=== PATIENT | male | born 1960 | race Caucasian/White ===

== ENCOUNTER 2017-11-25 18:41 | Emergency (ER) | payer BC ==
--- OUTSIDE RECORDS SUMMARY | 2017-11-25 18:44 | XMS REPORT | Continuity of Care Document ---
:1960 Author Organization Interface Problems Problem Status Onset Classification Date Comments Source Date Reported Dyspnea, 07/06/19 10/03/2017 [facility] unspecified 18 DYSPNEA Active 06/28/19 [facility] 18 UNK Active 01/28/20 [facility] 17 CHEST PAIN, NEW Active 11[facility]09[facility]19 [facility] 16 [facility] Arthritis Resolved Problem 10/03/2017 [facility] pain, Resolved Problem 10/03/2017 lumbosacral [facility] Hypertension Resolved Problem 10/03/2017 [facility] Kidney stones Resolved Problem 10/03/2017 [facility] Skin cancer Resolved Problem 10/03/2017 [facility] Peptic ulcer Resolved Problem 10/03/2017 disease with [facility], hemorrhage [place] Sleep apnea Resolved Problem 10/03/2017 [facility] Presence of 10/03/2017 [facility] cardiac pacemaker Final: Chest [facility], unspecified CHEST PAIN, Active [facility] UNSPECIFIED [facility] Medications Medication Details Route Status Patient Ordering Order Source Instructions Provider Date influenza virus 0.5 mL, No Longer vaccine, Route: IM, Active inactivated Drug Form: SUSP, Daily, Start date: 02/18/17 12:00:00 INFORMATION DEVELOPER, Stop date: 02/18/17 17:00:00 CSTNotes: (Same as: Fluzone Quadrivalent , Fluarix Quadrivalent ) For 3 years of age and older (0.5 mL IM) Shake well before use influenza virus 0.5 mL, Inactive vaccine, Route: IM, 017 inactivated Drug Form: SUSP, Daily, NOW, Start date: 02/17/17 12:27:00 INFORMATION DEVELOPER, Stop date: 02/17/17 17:00:00 CSTNotes: (Same as: Fluzone Quadrivalent , Fluarix Quadrivalent ) For 3 years of age and older (0.5 mL IM) Shake well before use Tramadol 50 mg, 1 No Longer tab, Route: Active [facility] PO, Drug form: TAB, Q4H, Dosing Weight 154.545, kg, PRN Pain Score 1-3, Start date: 02/16/17 15:50:00 INFORMATION DEVELOPER, Duration: 30 day, Stop date: 03/18/17 15:49:00 CSTNotes: Not to exceed 400mg/day. (Same As: Ultram) Morphine 2 mg, 1 mL, No Longer Route: IVP, Active Us[facility] Drug form: SOLN, Q4H, Dosing Weight 154.545, kg, PRN Pain Score 7-10, Start date: 02/16/17 15:50:00 INFORMATION DEVELOPER, Duration: 30 day, Stop date: 03/18/17 15:49:00 INFORMATION DEVELOPER acetaminophen-c 1 tab, No Longer odeine #3 Route: PO, Active Us[facility] Drug Form: TAB, Dosing Weight 154.545, kg, Q4H, PRN Pain Score 4-6, Start date: 02/16/17 15:50:00 INFORMATION DEVELOPER, Duration: 30 day, Stop date: 03/18/17 15:49:00 CSTNotes: Do not exceed 4gm/day of acetaminophe n. (Same as: Tylenol with Codeine # 3) EPINEPHrine-lid 40 mL, Inactive ocaine Route: INJ, Us[facility] 1:200,000-2% Drug Form: preservative-fr INJ, Dosing ee injectable Weight solution 154.545, kg, ONCE, Start date: 02/16/17 9:56:00 INFORMATION DEVELOPER, Stop date: 02/16/17 9:56:00 CSTNotes: (lidocaine-e pi 2%-1:960391 20 ml AMP (MPF)) Preservative -free (Same as: Xylocaine-MF P w/Epinephrin e) EPINEPHrine-lid 80 mL, Inactive ocaine Route: [address] [place] [address] 1:200,000-2% SUB-Q, Drug preservative-fr Form: INJ, ee injectable Dosing solution Weight 154.545, kg, ONCE, Start date: 02/16/17 9:16:00 INFORMATION DEVELOPER, Stop date: 02/16/17 9:16:00 CSTNotes: (lidocaine-e pi 2%-1:874780 20 ml AMP (MPF)) Preservative -free (Same as: Xylocaine-MF P w/Epinephrin e) Home Medication Refill(s) 0 Active 017 [facility] magnesium oxide 400 mg=1 Active 400 mg oral tab, PO, 017 [facility] tablet Daily, 0 Refill(s) Vitamin D3 2000 2,000 Active intl units oral IntlUnit=1 [facility] tablet tab, PO, Daily, 0 Refill(s) Amlodipine PO, Daily, 0 Active Refill(s) [facility] tramadol 50 mg=1 tab, Active hydrochloride PO, Q4H, 0 017 [facility] 50 MG Oral Refill(s) Tablet Aspirin 81 MG 81 mg=1 tab, Active Enteric Coated PO, Daily, # 016 [place] Tablet 90 tab, 3 Refill(s) metoprolol 25 mg=1 tab, Active tartrate 25 mg PO, Q12H, # 016 [place] oral tablet 60 tab, 0 Refill(s) aspirin 325 mg 325 mg, 1 Inactive tablet tab, Route: 016 [place] PO, Drug form: TAB, Daily, Start date: 11/10/15 9:00:00 CDT, Duration: 30 day, Stop date: 12/09/15 9:00:00 CDTNotes: Take with food. Lopressor 25 mg, 1 Inactive tab, Route: 016 [place] PO, Drug form: TAB, Q12H, Dosing Weight 154.205, kg, Priority: Routine, Start date: 11/10/15 9:00:00 CDT, Duration: 30 day, Stop date: 12/09/15 21:00:00 CDTNotes: (Same as: Lopressor) Magnesium Oxide 400 mg, 1 Inactive tab, Route: 016 [place] PO, Drug form: TAB, BID, Dosing Weight 154.205, kg, Start date: 11/10/15 9:00:00 CDT, Duration: 30 day, Stop date: 12/09/15 17:00:00 CDTNotes: (Same as: Mag-Ox 400) Magnesium oxide [id number] elemental magnesium Dose=____mg magnesium oxide (___mg elemental magnesium) aspirin 325 mg 325 mg, 1 Inactive tablet tab, Route: Marky Loza PO, Drug form: TAB, Daily, Start date: 11/09/15 21:40:00 CDT, Duration: 30 day, Stop date: 12/09/15 9:00:00 CDTNotes: Take with food. Aspirin 325 MG 325 mg, Inactive Oral Tablet Route: PO, Marky Loza Drug form: TAB, Daily, Dosing Weight 154.205, kg, Priority: STAT, Start date: 11/09/15 21:33:00 CDT, Duration: 30 day, Stop date: 12/09/15 9:00:00 CDT tamsulosin 0.4 mg, 1 No Longer cap, Route: Active Marky Loza PO, Drug form: CAP, Daily, Dosing Weight 154.205, kg, Start date: 11/09/15 21:00:00 CDT, Duration: 30 day, Stop date: 12/08/15 21:00:00 CDTNotes: (Same As: Flomax) "Do Not Crush" Lisinopril 5 mg, 1 tab, No Longer Route: PO, Active Marky Loza Drug form: TAB, Bedtime, Dosing Weight 154.205, kg, Start date: 11/09/15 21:00:00 CDT, Stop date: 12/08/15 21:00:00 CDTNotes: (Same as: Prinivil, Zestril) sodium chloride 1,000 mL, No Longer 0.9% 1000 ml Rate: 75 Active Marky Loza INJ 1,000 mL ml/hr, Infuse over: 13.3 hr, Route: IV, Dosing Weight 154.205 kg, Total Volume: 1,000, Start date: 11/09/15 18:13:00 CDT, Duration: 30 day, Stop date: 12/09/15 18:12:00 CDT Docusate 100 mg, 1 No Longer MH cap, Route: Active 016 [place] PO, Drug form: CAP, BID, Dosing Weight 154.205, kg, Start date: 11/09/15 17:00:00 CDT, Duration: 30 day, Stop date: 12/09/15 9:00:00 CDTNotes: (Same as: Colace) (Do Not Crush) Enoxaparin 40 mg, 0.4 No Longer mL, Route: Active Marky Loza SUB-Q, Drug form: INJ, [id number], Dosing Weight 154.205, kg, Consider for obese patients, Start date: 11/09/15 16:00:00 CDT, Duration: 30 day, Stop date: 12/09/15 4:00:00 CDTNotes: (Same as: Lovenox) metoprolol 25 mg, 1 Inactive tartrate tab, Route: Marky Loza PO, Drug form: TAB, Q12H, Dosing Weight 154.205, kg, Priority: STAT, Start date: 11/09/15 15:19:00 CDT, Stop date: 12/09/15 9:00:00 CDTNotes: (Same as: Lopressor) Ondansetron 4 mg, 2 mL, No Longer Route: IVP, Active Marky Loza Drug form: INJ, Q6H, Dosing Weight 154.205, kg, PRN Nausea & Vomiting, Start date: 11/09/15 15:15:00 CDT, Duration: 30 day, Stop date: 12/09/15 15:14:00 CDTNotes: (Same as: Brian) MEDICATION WASTE Product Size: 4 mg Product Wasted: ___ mg Acetaminophen 1 tab, No Longer 325 MG / Route: PO, Active Marky Loza Hydrocodone Drug Form: Bitartrate 5 MG TAB, Dosing Oral Tablet Weight 154.205, kg, Q4H, PRN Pain Score 4-6, Start date: 11/09/15 15:15:00 CDT, Duration: 30 day, Stop date: 12/09/15 15:14:00 CDTNotes: (Same as: Berry 325/5) Do not exceed 4gm/day of acetaminophe n. Acetaminophen 650 mg, 2 No Longer MH tab, Route: Active 016 [place] PO, Drug form: TAB, Q4H, Dosing Weight 154.205, kg, PRN Pain 1-3/Temp > 100.4 F, Start date: 11/09/15 15:15:00 CDT, Duration: 30 day, Stop date: 12/09/15 15:14:00 CDTNotes: Do not exceed 4 gm/day. (Same as: Tylenol) Amlodipine 10 mg, PO, No Longer Daily, 0 Active 016 [place] Refill(s) tamsulosin 0.4 0.4 mg=1 Active [facility] mg oral capsule cap, PO, 016 [place] Daily, # 30 cap, 0 Refill(s) lisinopril 20 20 mg=1 tab, Active [facility] mg oral tablet PO, Bedtime, 016 [place] # 30 tab, 0 Refill(s) Allergies, Adverse Reactions, Alerts Substance Category Reaction Severity Reaction Status Date Comments Source type Reported NKDA Assertion Drug Active allergy [facility] Immunizations Immunization Date Site Status Last Comments Source Given Updated influenza virus Right completed [facility] vaccine, 7 deltoid inactivated Results Order Name Results Value Reference Date Interpretation Comments Source Range Chest 2 Chest 2 Patient Name: SILVANA JARRELL 06/27 - views DX views - : 1960; Age: 56 years y/o Male MR: [id number] Read by: Logan Levine MD Dictated Date/time: 06/27/17 13:57 Electronically Signed by: Logan Levine MD 06/27/17 13:58 FINAL REPORT Study: Chest 2 views DX 06/27/2017 1:35 PM CDT Ordering Physician: Clinical Indication: - dyspnea; Comparison: 02/17/2017 Two-view chest Lungs are clear. Heart size within normal limits. No evidence for congestive heart failure or pulmonary edema. No pleural effusion or pneumothorax is evident. Implanted pacemaker generator left chest wa ll with leads extending into the right atrium and ventricle as before. IMPRESSION: No acute findings. SL: [id number] Chest 2 Chest 2 Patient Name: SILVANA JARRELL 02/17 - views DX views - : 1960; Age: 56 years Male MR: [id number] Read by: Linda Hopkins MD Dictated Date/time: 02/17/17 09:58 Study: Chest 2 views DX Order Time: 02/17/2017 3:00 AM INFORMATION DEVELOPER Electronically Signed by: Linda Hopkins MD 02/17/17 09 :59 FINAL REPORT CLINICAL INDICATION: Line Placement - Status post PPM/ICD Implantation COMPARISON: Chest radiograph on 02/16/2017 FINDINGS: Lines: Stable position of the left chest pacemaker/defibrillator with leads projecting over the right atrium and right ventricle. Lungs: The lungs are grossly clear. Mediastinum: The cardiac silhouette is within normal limits of size. Midline trachea. Bones and soft tissues: No acute abnormalities. IMPRESSION: No acute cardiopulmonary abnormalities. No significant change since 2016. SL: [id number] Chest 1 v Chest 1 v Clinical Indication: Line Placement - Status post PPM/ ICD Implantation. 02/16 - [facility] - [facility] Placement Placement DX Comparison: None. DX Read by: Mat Saez MD Dictated Date/time: 02/16/17 19:37 Technique: AP radiograph(s) of the chest. Electronically Signed by : Mat Saez MD 02/16/17 19:38 FINAL REPORT FINDINGS: LINES AND TUBES: None LUNGS: Lung volumes are diminished with resultant vascular crowding, bibasilar segmental atelectasis, and technique-related widening of the cardiomediastinal silhouette. No interstitial or airspace opacities. No pneumothorax or pleural effusion HEART AND MEDIASTINUM: Cardiac silhouette unremarkable. A 2-lead left subclavian pacemaker is present with right atrial and right ventricular leads. The trachea is midline. OSSEOUS STRUCTURES: No acute abnormality identified. IMPRESSION: 1. Low lung volumes. 2. Left subclavian 2-lead pacer present. No pneumothorax. SL: [facility] CHEM PANEL eGFR 89 02/08 Result Comment: The eGFR is calculated using the CKD-EPI formula. In most young, healthy individuals the eGFR will be >90 mL/ min/1.73m2. The eGFR declines with age. An eGFR of 60-89 may be normal in mL/min/1. some populations, particularly the elderly, for whom the CKD-EPI formula has not been extensively validated. Use of the eGFR is not recommended in the following populations: [facility] 3m2 Individuals with unstable creatinine concentrations, including patients and those with serious co-morbid conditions. Patients with extremes in muscle mass or diet. The data above are obtained from the National Kidney Disease Education Program (NKDEP) which additionally recommends that when the eGFR is used in patients with extremes of body mass index for purposes of drug dosing, the eGFR should be multiplied by the estimated BMI. CHEM PANEL Calcium Lvl 9.3 mg/dL 8.5 - 10.5 02/08 [facility] CHEM PANEL Sodium Lvl 139 meq/L 135 - 145 02/08 [facility] CHEM PANEL BUN 13 mg/dL 7 - 22 02/08 [facility] CHEM PANEL CO2 28 meq/L 24 - 32 02/08 [facility] CHEM PANEL Chloride Lvl 101 meq/L 95 - 109 02/08 [facility] CHEM PANEL Potassium 4.5 meq/L 3.5 - 5.1 02/08 [facility] Lvl /2016 [facility] CHEM PANEL Creatinine 0.95 mg/dL 0.50 - 02/08 Lvl 1.40 [facility] CHEM PANEL Glucose Lvl 89 mg/dL 70 - 99 02/08 [facility] CHEM PANEL AGAP 14.5 meq/L 10.0 - 02/08 [facility] 20.0 /2017 [facility] HEMATOLOGY INR 1.04 0.85 - 02/08 [facility] 1.17 /2016 [facility] HEMATOLOGY PTT 29.9 s 22.9 - 02/08 [facility] 35.8 /2016 [facility] HEMATOLOGY PT 13.6 s 12.0 - 02/08 [facility] 14.7 /2017 [facility] HEMATOLOGY Eosinophils 0.2 K/CMM 0.0 - 0.5 02/08 [facility] # /2017 [facility] HEMATOLOGY Monocytes # 0.8 K/CMM 0.0 - 0.8 02/08 [facility] HEMATOLOGY Lymphocytes 2.2 K/CMM 1.0 - 5.5 02/08 [facility] # /2017 [facility] HEMATOLOGY Basophils 0.4 % 0.0 - 1.0 02/08 [facility] HEMATOLOGY Segs-Bands # 4.0 K/CMM 1.5 - 8.1 02/08 [facility] HEMATOLOGY Eosinophils 2.8 % 0.0 - 4.0 02/08 [facility] HEMATOLOGY Lymphocytes 30.6 % 20.0 - 02/08 [facility] 40.0 /2017 [facility] HEMATOLOGY Segs 55.4 % 45.0 - 02/08 MH 75.0 [facility] HEMATOLOGY Monocytes 10.8 % 2.0 - 12.0 02/08 [facility] HEMATOLOGY MPV 8.8 fL 7.4 - 10.4 02/08 [facility] Platelet 287 K/CMM 133 - 450 02/08 [facility] MCV 91.3 fL 80.0 - 02/08 MH 94.0 [facility] HEMATOLOGY MCHC 33.9 g/dL 32.0 - 02/08 [facility] 36.0 [facility] HEMATOLOGY RDW 14.0 % 11.5 - 02/08 MH 14. [facility] MCH 30.9 pg 27.0 - 02/08 MH 31.0 [facility] Hct 40.7 % 42.0 - 02/08 MH 54.0 [facility] WBC 7.2 K/CMM 3.7 - 10.4 02/08 [facility] Hgb 13.8 g/dL 14.0 - 02/08 MH 18.0 [facility] RBC 4.46 M/CMM 4.70 - 02/08 MH 6.10 [facility] Cardiac Cardiac PATIENT NAME: SILVANA JARRELL 11/09 - [facility] SPECT SPECT multi /2015 - [facility] studies NM studies NM Electronically Signed by: Anthony Silva MD 01/12/16 12:31 FINAL REPORT DATE OF SERVICE: 11/10/2015 *_*_* PROCEDURE PERFORMED Nuclear gated myocardial perfusion scan . This procedure done at [facility]. Nuclear gated myocardial perfusion scan performed as protocol at nuclear medicine lab at [facility] Lexiscan protocol. Lexiscan injected 0.4 mg intravenously as stress agent. I supervised this nuclear stress test and 30.4 mg Cardiolite injected for this stress protocol. The patient is morbidly obese. CT attenuation correction is performed on this case. Only stress images are done at this time. Stress images are good. There is no evidence of ischemia or scar noted. Left ventricular ejection fraction is 50% to 55%. No resting image is necessary as the patient's stress test is normal. IMPRESSION Normal nuclear Lexiscan and stress images are within normal limits. No evidence of ischemia or scar noted. Left ventricular ejection fraction 50% to 55%. Thank you, Dr. Edilberto Mcneal for this nuclear interpretation, consultation , and the procedure. _*_*_ Dictated by: ANTHONY SILVA MD cc: INFORMATION DEVELOPER / M: 11/11/2015 00:32:46 11/11/2015 08:43:06 INFORMATION DEVELOPER INFORMATION DEVELOPER/[id number] Doc#: [id number] Signature Line Anthony Silva MD Electronically Signed: 11/14/15 12:35 CARDIAC Troponin-I null 0.00 - 11/09 ENZYMES 0.40 [place] CHEM PANEL Magnesium 1.7 mg/dL 1.8 - 2.4 11/09 Lvl [place] CHEM PANEL eGFR 71 11/09 Result Comment: The eGFR is calculated using the CKD-EPI formula. In most young, healthy individuals the eGFR will be >90 mL/ min/1.73m2. The eGFR declines with age. An eGFR of 60-89 may be normal in mL/min/1.7 /2015 some populations, particularly the elderly, for whom the CKD-EPI formula has not been extensively validated. Use of the eGFR is not recommended in the following populations: [address] Individuals with unstable creatinine concentrations, including patients and those with serious co-morbid conditions. Patients with extremes in muscle mass or diet. The data above are obtained from the National Kidney Disease Education Program (NKDEP) which additionally recommends that when the eGFR is used in patients with extremes of body mass index for purposes of drug dosing, the eGFR should be multiplied by the estimated BMI. CHEM PANEL Bili Total 0.5 mg/dL 0.2 - 1.3 11/09 [place] CHEM PANEL Total 7.1 g/dL 6.4 - 8.4 11/09 Protein [place] CHEM PANEL CO2 31 meq/L 24 - 32 11/09 [place] CHEM PANEL Chloride Lvl 104 meq/L 95 - 109 11/09 [place] CHEM PANEL Calcium Lvl 8.4 mg/dL 8.5 - 10.5 11/09 [place] CHEM PANEL Potassium 3.9 meq/L 3.5 - 5.1 11/09 MH Lvl [place] CHEM PANEL Sodium Lvl 139 meq/L 135 - 145 11/09 [place] CHEM PANEL ASPARTATE 18 unit/L 0 - 37 11/09 MH [place] CHEM PANEL Glucose Lvl 91 mg/dL 70 - 99 11/09 [place] CHEM PANEL Alk Phos 56 unit/L 39 - 136 11/09 [place] CHEM PANEL Creatinine 1.15 mg/dL 0.50 - 11/09 [facility] Lvl 1.40 [place] CHEM PANEL BUN 16 mg/dL 7 - 22 11/09 [place] CHEM PANEL Albumin Lvl 3.5 g/dL 3.5 - 5.0 11/09 [place] CHEM PANEL ALANINE 21 unit/L 0 - 65 11/09 AMINOTRANS [place] RASE CHEM PANEL B/C Ratio 14 6 - 25 11/09 [place] CHEM PANEL AGAP 7.9 meq/L 10.0 - 11/09 MH 20.0 [place] CHEM PANEL A/G Ratio 1.0 0.7 - 1.6 11/09 [place] CHEM PANEL Globulin 3.6 g/dL 2.7 - 4.2 11/09 [place] HEMATOLOGY Lymphocytes 35.4 % 20.0 - 11/09 MH 40.0 [place] HEMATOLOGY Monocytes 14.5 % 2.0 - 12.0 11/09 [place] HEMATOLOGY Segs 48.6 % 45.0 - 11/09 MH 75.0 [place] HEMATOLOGY Segs-Bands # 4.0 K/CMM 1.5 - 8.1 11/09 [place] HEMATOLOGY Lymphocytes 2.9 K/CMM 1.0 - 5.5 11/09 MH # [place] HEMATOLOGY Eosinophils 1.1 % 0.0 - 4.0 11/09 [place] HEMATOLOGY Basophils 0.4 % 0.0 - 1.0 11/09 [place] HEMATOLOGY Monocytes # 1.2 K/CMM 0.0 - 0.8 11/09 [place] HEMATOLOGY Eosinophils 0.1 K/CMM 0.0 - 0.5 11/09 MH # [place] HEMATOLOGY Hct 39.4 % 42.0 - 11/09 MH 54.0 [place] HEMATOLOGY WBC X 10x3 8.2 K/CMM 3.7 - 10.4 11/09 /2015 [place] HEMATOLOGY Hgb 13.3 g/dL 14.0 - 11/09 MH 18.0 [place] HEMATOLOGY MCV 88.3 fL 80.0 - 11/09 MH 94.0 [place] HEMATOLOGY RBC X 10x6 4.46 M/CMM 4.70 - 11/09 MH 6.10 [place] HEMATOLOGY RDW 14.3 % 11.5 - 11/09 MH 14.5 [place] HEMATOLOGY MPV 8.6 fL 7.4 - 10.4 11/09 [place] HEMATOLOGY MCHC 33.7 g/dL 32.0 - 11/09 MH 36.0 [place] HEMATOLOGY Platelet 298 K/CMM 133 - 450 11/09 [place] HEMATOLOGY MCH 29.7 pg 27.0 - 11/09 MH 31.0 [place] LIPIDS LDL 110 mg/dL <=99 mg/dL 11/09 (Calculated) [place] LIPIDS VLDL 28 11/09 [place] LIPIDS CHD Risk 4.83 4.00 - 11/09 MH 7.30 [place] LIPIDS Chol 174 mg/dL <=199 11/09 mg/dL /2015 [place] LIPIDS Trig 140 mg/dL <=149 11/09 mg/dL /2015 [place] LIPIDS HDL 36 mg/dL >=61 mg/dL 11/09 [place] CARDIAC CK-MB INDEX 1.5 0.0 - 2.5 11/09 ENZYMES /2015 [place] CARDIAC CK MB 2.6 ng/mL 0.5 - 3.6 11/09 ENZYMES [place] CARDIAC Troponin-I null 0.00 - 11/09 ENZYMES 0.40 [place] CARDIAC Total CK 170 unit/L 12 - 191 11/09 ENZYMES [place] CARDIAC CK-MB INDEX 1.4 0.0 - 2.5 11/08 ENZYMES /2015 [place] CARDIAC CK MB 2.5 ng/mL 0.5 - 3.6 11/08 ENZYMES /2015 [place] CARDIAC Total CK 173 unit/L 12 - 191 11/08 ENZYMES [place] CARDIAC Troponin-I null 0.00 - 11/08 ENZYMES 0.40 [place] Vital Signs Vital Sign Value Date Comments Source Temperature Oral (F) 98.3 F 02/17/2017 [facility] Respitory Rate 18 02/17/2017 [facility] Systolic (mm Hg) 132 02/17/2017 [facility] Diastolic (mm Hg) 85 02/17/2017 [facility] Heart Rate 88 02/17/2017 [facility] Heart Rate 95 02/17/2017 [facility] Temperature Oral (F) 98.2 F 02/17/2017 [facility] Systolic (mm Hg) 130 02/17/2017 [facility] Diastolic (mm Hg) 84 02/17/2017 [facility] Respitory Rate 18 02/17/2017 [facility] Respitory Rate 18 02/17/2017 [facility] Temperature Oral (F) 99.0 F 02/17/2017 [facility] Systolic (mm Hg) 120 02/17/2017 [facility] Diastolic (mm Hg) 76 02/17/2017 [facility] Heart Rate 84 02/17/2017 [facility] Weight 154.545 02/08/2017 [facility] BMI Calculated 46.21 02/08/2017 [facility] Height 182.88 cm 02/08/2017 [facility] Respitory Rate 18 11/10/2015 [facility] Heart Rate 65 11/10/2015 [facility] Temperature Oral (F) 97.6 F 11/10/2015 [facility] Systolic (mm Hg) 114 11/10/2015 [facility] Diastolic (mm Hg) 80 11/10/2015 [facility] Temperature Oral (F) 97.6 F 11/10/2015 [facility] Heart Rate 84 11/10/2015 [facility] Respitory Rate 18 11/10/2015 [facility] Systolic (mm Hg) 133 11/10/2015 [facility] Diastolic (mm Hg) 85 11/10/2015 [facility] Respitory Rate 20 11/10/2015 [facility] Heart Rate 84 11/10/2015 [facility] Temperature Oral (F) 97.9 F 11/10/2015 [facility] Systolic (mm Hg) 100 11/10/2015 [facility] Diastolic (mm Hg) 68 11/10/2015 [facility] BMI Calculated 46.11 11/09/2015 [facility] Weight 154.205 11/09/2015 [facility] Height 182.88 cm 11/09/2015 [facility] BMI Calculated 46.01 11/09/2015 [facility] Weight 153.892 11/09/2015 [facility] Height 182.88 cm 11/09/2015 [facility] Encounters Location Location Encounter Encounter Reason Attending ADM DC Status Source Details Type Number For Provider Date Date [facility] [id number] [facility] 11/08 11/09 Har[facility]inder Reddy /2015 [facility] Bedded [id number] Geoff 02/16 02/17 [facility] Outpatient Shahnaz /2016 [facility] Outpatient [id number] Edilberto 06/27 06/28 Harvinder Mcneal /2017 [facility] Procedures Procedure Code Date Perfomer Comments Source Extraction of [id number] [facility] permanent tooth Incision and [id number] [facility] drainage of axilla Extraction of [id number] [facility] permanent tooth Incision and [id number] [facility] drainage of axilla
--- NOTE | 2017-11-25 20:04 | EDPHYS ---
Physician Documentation [facility] Name: Keo Richards Age: 57 yrs Sex: Male : 1960 Arrival Date: 11/25/2017 Time: 18:43 Bed 13 Private MD: Freddie Clayton E ED Physician Mat Hewitt HPI: 11/25 20:09 This 57 yrs old Male presents to ER via Wheelchair with complaints of Back ps1 Pain, Leg Pain, Hip Pain. 20:09 patient with known history of right leg sciatica that has been managed by Matilde and has ps1 a standing order for MRI that he has not had performed yet. Today he now has left leg sciatica with radiation to the left knee. Pain is moderate to severe. thinks it happened during lifting. Pain improved with his [place] prescriptions. . Historical: - Allergies: 19:19 No Known Allergies; aj1 - Home Meds: 19:19 magnesium oxide 400 mg Oral tab daily [Active]; furosemide 40 mg Oral tab 1 tab once aj1 daily [Active]; tamsulosin 0.4 mg oral cp24 1 cap once daily [Active]; amiodarone 200 mg Oral tab 1 tab 2 times per day [Active]; hydrocodone-acetaminophen 10-325 mg oral tab three times a day as needed [Active]; tramadol 50 mg Oral tab 1 tab three times a day as needed [Active]; potassium chloride 20 mEq Oral TbER 1 tab once daily [Active]; Eliquis 5 mg oral tab 1 tab 2 times per day [Active]; metoprolol tartrate 25 mg Oral tab 1 tab 2 times per day [Active]; meloxicam 15 mg oral tab 1 tab once daily [Active]; lisinopril 10 mg Oral tab 1 tab once daily [Active]; - PMHx: 19:19 Pacemaker; Kidney stones; Hypertension; aj1 - Immunization history:: Flu vaccine is up to date. - Social history:: Smoking status: Patient/guardian denies using tobacco. - Ebola Screening: : Patient denies travel to an Ebola-affected area in the 21 days before illness onset. ROS: 20:09 Constitutional: Negative for fever, chills, and weight loss, Eyes: Negative for injury, ps1 pain, redness, and discharge, Cardiovascular: Negative for chest pain, palpitations, and edema, Respiratory: Negative for shortness of breath, cough, wheezing, and pleuritic chest pain, Abdomen/GI: Negative for abdominal pain, nausea, vomiting, diarrhea, and constipation, MS/Extremity: Negative for injury and deformity, Skin: Negative for injury, rash, and discoloration, Neuro: Negative for headache, weakness, numbness, tingling, and seizure. 20:09 Back: Positive for decreased range of motion, pain with movement. Exam: 20:09 Constitutional: This is a well developed, well nourished patient who is awake, alert, ps1 and in no acute distress. Head/Face: Normocephalic, atraumatic. Eyes: Pupils equal round and reactive to light, extra-ocular motions intact. Lids and lashes normal. Conjunctiva and sclera are non-icteric and not injected. Chest/axilla: Normal chest wall appearance and motion. Nontender with no deformity. No lesions are appreciated. Cardiovascular: Regular rate and rhythm. No gallops, murmurs, or rubs. Normal PMI, no JVD. No pulse deficits. Respiratory: Lungs have equal breath sounds bilaterally, clear to auscultation and percussion. No rales, rhonchi or wheezes noted. No increased work of breathing, no retractions or nasal flaring. Abdomen/GI: Soft, non-tender, with normal bowel sounds. No distension or tympany. No guarding or rebound. No evidence of tenderness throughout. 20:09 Back: pain, that is moderate, muscle spasm, is appreciated in the left flank, left low back and left mid back. Vital Signs: 19:19 BP 132 / 64; Pulse 65; Resp 18; Temp 97.0(TE); Pulse Ox 96% on R/A; Weight 156.49 kg aj1 (R); Height 6 ft. 0 in. (182.88 cm) (R); Pain 8/10; 19:38 BP 137 / 72; Pulse 62; Resp 18; Pulse Ox 95% on R/A; aa1 20:20 BP 129 / 57; Pulse 60; Resp 18; Pulse Ox 96% on R/A; jb4 19:19 Body Mass Index 46.79 (156.49 kg, 182.88 cm) aj1 MDM: 20:03 Patient medically screened. ps1 20:09 Data reviewed: vital signs, nurses notes, and as a result, I will discharge patient, ps1 administer steroids, Decadron, prescribe pain medication, mobic. 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 Administered Medications: 20:12 Drug: TORadol 30 mg Route: IM; Site: right deltoid; jb4 20:19 Follow up: Response: No adverse reaction jb4 20:13 Drug: Decadron 8 mg Route: PO; jb4 20:19 Follow up: Response: No adverse reaction jb4 Disposition: 11/25/17 20:03 Discharged to Home. Impression: Sciatica, left side. - Condition is Stable. - Discharge Instructions: Sciatica. - Prescriptions for Mobic 7.5 mg Oral Tablet - take 1 tablet by ORAL route once daily take with food; 20 tablet. Robaxin 500 mg Oral Tablet - take 2 tablet by ORAL route every 6 hours As needed; 40 tablet. Medrol (Ritesh) 4 mg Oral Tablets, Dose Pack - take 1 tablet by ORAL route as directed - follow package instructions; 1 packet. - Medication Reconciliation Form, Thank You Letter, Antibiotic Education, Prescription Opioid Use form. - Follow up: Freddie Clayton MD; When: As needed; Reason: Further diagnostic work-up, Recheck today's complaints, Continuance of care, Re-evaluation by your physician. Follow up: Emergency Department; When: As needed; Reason: Worsening of condition. - Problem is an acute exacerbation. - Symptoms have improved. Signatures: Alana Gandara RN RN aj1 Stephanie Armas RN RN aa1 Drake Chiang RN RN jb4 Mat Hewitt MD MD ps1 Corrections: (The following items were deleted from the chart) 20:27 20:03 11/25/2017 20:03 Discharged to Home. Impression: Sciatica, left side. Condition jb4 is Stable. Forms are Medication Reconciliation Form, Thank You Letter, Antibiotic Education, Prescription Opioid Use. Follow up: Freddie Clayton; When: As needed; Reason: Further diagnostic work-up, Recheck today's complaints, Continuance of care, Re-evaluation by your physician. Follow up: Emergency Department; When: As needed; Reason: Worsening of condition. Problem is an acute exacerbation. Symptoms have improved. ps1
--- NOTE | 2017-11-25 20:04 | ER ---
Nurse's Notes [facility] Name: Keo Richards Age: 57 yrs Sex: Male : 1960 Arrival Date: 11/25/2017 Time: 18:43 Bed 13 Private MD: Freddie Clayton E Diagnosis: Sciatica, left side Presentation: 11/25 19:11 Presenting complaint: Patient states: Left hip pain, left lower back and left leg pain aj1 since approximately 1400 today. Pain is intermittent. Denies injury. Transition of care: patient was not received from another setting of care. Onset of symptoms was November 25, 2017 at 14:00. Risk Assessment: Do you want to hurt yourself or someone else? Patient reports no desire to harm self or others. Initial Sepsis Screen: Does the patient meet any 2 criteria? No. Patient's initial sepsis screen is negative. Does the patient have a suspected source of infection? No. Patient's initial sepsis screen is negative. Care prior to arrival: None. 19:11 Method Of Arrival: Wheelchair aj1 19:11 Acuity: KATHRYN 4 aj1 Triage Assessment: 19:19 General: Appears in no apparent distress. comfortable, Behavior is calm, cooperative, aj1 appropriate for age. Pain: Complains of pain in back, left hip and left leg Pain currently is 8 out of 10 on a pain scale. Neuro: Level of Consciousness is awake, alert, obeys commands. Cardiovascular: Patient's skin is warm and dry. Respiratory: Airway is patent Respiratory effort is even, unlabored, Respiratory pattern is regular, symmetrical. Musculoskeletal: Range of motion: intact in all extremities. Historical: - Allergies: 19:19 No Known Allergies; aj1 - Home Meds: 19:19 magnesium oxide 400 mg Oral tab daily [Active]; furosemide 40 mg Oral tab 1 tab once aj1 daily [Active]; tamsulosin 0.4 mg oral cp24 1 cap once daily [Active]; amiodarone 200 mg Oral tab 1 tab 2 times per day [Active]; hydrocodone-acetaminophen 10-325 mg oral tab three times a day as needed [Active]; tramadol 50 mg Oral tab 1 tab three times a day as needed [Active]; potassium chloride 20 mEq Oral TbER 1 tab once daily [Active]; Eliquis 5 mg oral tab 1 tab 2 times per day [Active]; metoprolol tartrate 25 mg Oral tab 1 tab 2 times per day [Active]; meloxicam 15 mg oral tab 1 tab once daily [Active]; lisinopril 10 mg Oral tab 1 tab once daily [Active]; - PMHx: 19:19 Pacemaker; Kidney stones; Hypertension; aj1 - Immunization history:: Flu vaccine is up to date. - Social history:: Smoking status: Patient/guardian denies using tobacco. - Ebola Screening: : Patient denies travel to an Ebola-affected area in the 21 days before illness onset. Screenin:40 Abuse screen: Denies threats or abuse. Nutritional screening: No deficits noted. jb4 Tuberculosis screening: No symptoms or risk factors identified. Fall Risk None identified. Assessment: 19:40 General: Appears in no apparent distress. uncomfortable, Behavior is calm, cooperative, jb4 appropriate for age. Pain: Complains of pain in low back area Pain radiates to groin, left upper thigh, left quadriceps and left knee Pain currently is 10 out of 10 on a pain scale. at worst was 10 out of 10 on a pain scale. Quality of pain is described as sharp, stabbing, Pain began 2-3 days ago. Is continuous, Alleviated by repositioning, Aggravated by repositioning. Neuro: Level of Consciousness is awake, alert, obeys commands, Oriented to person, place, time, situation. Cardiovascular: Patient's skin is warm and dry. Respiratory: Airway is patent Respiratory effort is even, unlabored, Respiratory pattern is regular, symmetrical. GI: No signs and/or symptoms were reported involving the gastrointestinal system. : No signs and/or symptoms were reported regarding the genitourinary system. EENT: No signs and/or symptoms were reported regarding the EENT system. Derm: Skin is intact, Skin is pink, warm \T\ dry. Musculoskeletal: Reports pain in low back area, groin, left upper thigh, left quadriceps and left knee Pain is 10 out of 10 on a pain scale. 20:25 Reassessment: Patient appears in no apparent distress at this time. Patient and/or jb4 family updated on plan of care and expected duration. Pain level reassessed. Patient is alert, oriented x 3, equal unlabored respirations, skin warm/dry/pink. Discussed D/C \T\ F/U instructions with pt, denies questions or concerns at this time. Vital Signs: 19:19 BP 132 / 64; Pulse 65; Resp 18; Temp 97.0(TE); Pulse Ox 96% on R/A; Weight 156.49 kg aj1 (R); Height 6 ft. 0 in. (182.88 cm) (R); Pain 8/10; 19:38 BP 137 / 72; Pulse 62; Resp 18; Pulse Ox 95% on R/A; aa1 20:20 BP 129 / 57; Pulse 60; Resp 18; Pulse Ox 96% on R/A; jb4 19:19 Body Mass Index 46.79 (156.49 kg, 182.88 cm) aj1 ED Course: 18:43 Patient arrived in ED. sb2 18:43 Freddie Clayton MD is Private Physician. sb2 19:15 Triage completed. aj1 19:19 Arm band placed on Patient placed in an exam room. EKG completed in triage. Results aj1 shown to MD. 19:25 Mat Hewitt MD is Attending Physician. ps1 19:40 Patient has correct armband on for positive identification. Bed in low position. Call jb4 light in reach. Side rails up X 1. Pulse ox on. NIBP on. 19:44 Drake Chiang RN is Primary Nurse. jb4 20:03 Freddie Clayton MD is Referral Physician. ps1 20:26 No provider procedures requiring assistance completed. Patient did not have IV access jb4 during this emergency room visit. Administered Medications: 20:12 Drug: TORadol 30 mg Route: IM; Site: right deltoid; jb4 20:19 Follow up: Response: No adverse reaction jb4 20:13 Drug: Decadron 8 mg Route: PO; jb4 20:19 Follow up: Response: No adverse reaction jb4 Outcome: 20:03 Discharge ordered by . ps1 20:26 Discharged to home ambulatory. jb4 20:26 Condition: stable 20:26 Discharge instructions given to patient, family, Instructed on discharge instructions, follow up and referral plans. medication usage, Demonstrated understanding of instructions, follow-up care, medications, Prescriptions given X 3. 20:27 Patient left the ED. jb4 Signatures: Alana Gandara RN RN aj1 Stephanie Armas RN RN aa1 Drake Chiang RN RN jb4 Mat Hewitt MD MD ps1 Funmilayo Quach sb2 Corrections: (The following items were deleted from the chart) 20:26 20:25 Reassessment: Patient appears in no apparent distress at this time. Patient jb4 and/or family updated on plan of care and expected duration. Pain level reassessed. Patient is alert, oriented x 3, equal unlabored respirations, skin warm/dry/pink. jb4
[2017-11-25] MEDS ORDERED: KETOROLAC 30 MG/ML INJ ONE (20:09)
[2017-11-25] MEDS ORDERED: DEXAMETHASONE 4 MG TAB ONE (20:11)
[2017-11-25 20:34] VITALS: TEMP 97
[2017-11-25 20:37] VITALS: BP 129/57; O2SAT 96
== END 2017-11-25 20:27 | disposition home or self-care (01) ==
LOC: ER 18:41
DX: M54.42 Lumbago with sciatica, left side (principal); I10 Essential (primary) hypertension; Z95.0 Presence of cardiac pacemaker
CPT/HCPCS: 96372; 99283

== ENCOUNTER 2019-02-22 15:49 | Emergency (ER) | payer BC ==
--- OUTSIDE RECORDS SUMMARY | 2019-02-22 15:51 | XMS REPORT ---
:1960 [facility] Address [address] [place] [address] Dr. Kilgore [address] [place] [id number] Care Team Providers Name Role Phone Unavailable Unavailable Unavailable Problems This patient has no known problems. Allergies, Adverse Reactions, Alerts This patient has no known allergies or adverse reactions. Medications This patient has no known medications. Encounters Start End Encounter Admission Attending Care Care Encounter Date/Time Date/Time Type Type Clinicians Facility Department ID 2019-01-10 Outpatient [facility] [id number] 08:23:13
[2019-02-22 16:43] LABS: Absolute Lymphocytes (CBC) 2.4 K/uL (0.7-4.9); Basophils % 0.6 % (0-1.3); Hematocrit 37.9 % (39.6-49.0); Lymphocytes % 20.3 % (15.3-44.8); MPV 8.5 fL (7.6-11.3); RBC Red Blood Cell Count 4.05 M/uL (4.33-5.43)
[2019-02-22 16:57] LABS: Potassium 3.8 mmol/L (3.5-5.1)
[2019-02-22 17:33] LABS: Urine Blood 3+ (NEG); Urine Glucose NEGATIVE (NEG); Urine pH 6.5 (5.0-7.0)
[2019-02-22 17:34] LABS: Urine Protein 2+ (NEG)
--- NOTE | 2019-02-22 18:03 | ER ---
Nurse's Notes [facility] Name: Koe Richards Age: 58 yrs Sex: Male : 1960 Arrival Date: 02/22/2019 Time: 15:52 Bed 19 Private MD: Freddie Clayton E Diagnosis: Hematuria;Cystitis, unspecified with hematuria Presentation: 02/22 16:11 Presenting complaint: Patient states: blood in urine since this morning, had MRI done iw this morning to evaluate for cauda equina syndrome, was incontinent od stool with no sensation on Monday, has had no sensation of urination for "some time", is here in ER due to new onset of blood in urine. Transition of care: patient was not received from another setting of care. Onset of symptoms was February 22, 2019. Risk Assessment: Do you want to hurt yourself or someone else? Patient reports no desire to harm self or others. Initial Sepsis Screen: Does the patient meet any 2 criteria? No. Patient's initial sepsis screen is negative. Does the patient have a suspected source of infection? No. Patient's initial sepsis screen is negative. Care prior to arrival: None. 16:11 Method Of Arrival: Ambulatory iw 16:11 Acuity: KATHRYN 3 iw Historical: - Allergies: 16:16 No Known Allergies; iw - Home Meds: 16:16 amiodarone 200 mg Oral tab 1 tab once daily [Active]; Eliquis 5 mg Oral tab 1 tab 2 iw times per day [Active]; furosemide 40 mg Oral tab 1 tab once daily [Active]; lisinopril 10 mg Oral tab 1 tab once daily [Active]; metoprolol tartrate 12.5 mg Oral once daily [Active]; potassium chloride 20 mEq Oral TbER [Active]; Vitamin D Oral daily [Active]; - PMHx: 16:16 Hypertension; Kidney stones; Pacemaker; iw - Immunization history:: Adult Immunizations not up to date. - Social history:: Smoking status: Patient/guardian denies using tobacco. - Ebola Screening: : Patient negative for fever greater than or equal to 101.5 degrees Fahrenheit, and additional compatible Ebola Virus Disease symptoms Patient denies exposure to infectious person Patient denies travel to an Ebola-affected area in the 21 days before illness onset No symptoms or risks identified at this time. Screenin:30 Abuse screen: Denies threats or abuse. Nutritional screening: No deficits noted. em Tuberculosis screening: No symptoms or risk factors identified. Fall Risk None identified. Assessment: 16:30 General: Appears in no apparent distress. comfortable, Behavior is calm, cooperative, em Denies fever. Pain: Denies pain. Neuro: Level of Consciousness is awake, alert, obeys commands, Oriented to person, place, time, situation, Appropriate for age. Cardiovascular: Capillary refill < 3 seconds Patient's skin is warm and dry. Respiratory: Airway is patent Respiratory effort is even, unlabored, Respiratory pattern is regular, symmetrical. : Urine is norah blood, Reports bloody urine Denies pain. Derm: Skin is intact, is healthy with good turgor, Skin is pink, warm \\T\\ dry. Musculoskeletal: Capillary refill < 3 seconds, Range of motion: intact in all extremities. 16:32 Reassessment: I agree with the assessment made by OMID Casey. sg 17:51 Reassessment: Patient appears in no apparent distress at this time. Patient and/or em family updated on plan of care and expected duration. Pain level reassessed. Patient is alert, oriented x 3, equal unlabored respirations, skin warm/dry/pink. Patient denies pain at this time. Vital Signs: 16:16 BP 163 / 92; Pulse 61; Resp 16; Temp 98.3; Pulse Ox 99% on R/A; Weight 145.15 kg; iw Height 6 ft. 0 in. (182.88 cm); Pain 0/10; 17:26 BP 152 / 83; Pulse 60; Resp 18; Pulse Ox 98% on R/A; Pain 0/10; em 16:16 Body Mass Index 43.40 (145.15 kg, 182.88 cm) iw ED Course: 15:52 Patient arrived in ED. mr 15:52 Freddie Clayton MD is Private Physician. mr 16:05 Jacinto Cheatham LVN is Primary Nurse. em 16:12 Anthony Garcia MD is Attending Physician. kdr 16:14 Triage completed. iw 16:17 Arm band placed on. iw 16:30 Patient has correct armband on for positive identification. Bed in low position. Call em light in reach. Side rails up X 1. Side rails up X2. Pulse ox on. NIBP on. 16:38 Urine collected: clean catch specimen, blood tinged, Amount Voided: 90mL. ms 16:40 Initial lab(s) drawn, by me, sent to lab. Inserted saline lock: 20 gauge in right em antecubital area, using aseptic technique. Blood collected. 18:01 Freddie Clayton MD is Referral Physician. kdr 18:17 No provider procedures requiring assistance completed. IV discontinued, intact, em bleeding controlled, No redness/swelling at site. Pressure dressing applied. Administered Medications: 18:17 Drug: Bactrim (160 mg-800 mg (DS) 1 tablet Route: PO; em 18:18 Follow up: Response: Medication administered at discharge. em Outcome: 18:02 Discharge ordered by . kdr 18:17 Discharged to home ambulatory, with family. em 18:17 Condition: good 18:17 Discharge instructions given to patient, family, Instructed on discharge instructions, follow up and referral plans. medication usage, Demonstrated understanding of instructions, follow-up care, medications, Prescriptions given X 1. 18:20 Patient left the ED. em Signatures: Yaw Taylor, RN RN Anthony Garcia MD MD kdr Rivera, Karuna mr Jacinto Cheatham, FRONT DESK ADMIN FRONT DESK ADMIN em Elissa Myers, RN Eleanor Hua ms
--- NOTE | 2019-02-22 18:03 | EDPHYS ---
Physician Documentation [facility] Name: Keo Richards Age: 58 yrs Sex: Male : 1960 Arrival Date: 02/22/2019 Time: 15:52 Bed 19 Private MD: Freddie Clayton E ED Physician Anthoyn Garcia HPI: 02/22 18:53 This 58 yrs old Male presents to ER via Ambulatory with complaints of Urinary kdr Problem. 18:53 The patient presents with urinary symptoms, hematuria. kdr 02/23 07:14 Onset: The symptoms/episode began/occurred today. Modifying factors: The symptoms are kdr alleviated by nothing, the symptoms are aggravated by nothing. Associated signs and symptoms: The patient has no apparent associated signs or symptoms. Severity of symptoms: At their worst the symptoms were mild, in the emergency department the symptoms are unchanged. The patient has not experienced similar symptoms in the past. The patient has been recently seen by a physician: the patient's primary care provider, The patient had an MRI this morning for possible caude equina syndrome.. Historical: - Allergies: 02/22 16:16 No Known Allergies; iw - Home Meds: 16:16 amiodarone 200 mg Oral tab 1 tab once daily [Active]; Eliquis 5 mg Oral tab 1 tab 2 iw times per day [Active]; furosemide 40 mg Oral tab 1 tab once daily [Active]; lisinopril 10 mg Oral tab 1 tab once daily [Active]; metoprolol tartrate 12.5 mg Oral once daily [Active]; potassium chloride 20 mEq Oral TbER [Active]; Vitamin D Oral daily [Active]; - PMHx: 16:16 Hypertension; Kidney stones; Pacemaker; iw - Immunization history:: Adult Immunizations not up to date. - Social history:: Smoking status: Patient/guardian denies using tobacco. - Ebola Screening: : Patient negative for fever greater than or equal to 101.5 degrees Fahrenheit, and additional compatible Ebola Virus Disease symptoms Patient denies exposure to infectious person Patient denies travel to an Ebola-affected area in the 21 days before illness onset No symptoms or risks identified at this time. ROS: 02/23 07:14 Constitutional: Negative for fever, chills, and weight loss, Eyes: Negative for injury, kdr pain, redness, and discharge, ENT: Negative for injury, pain, and discharge, Neck: Negative for injury, pain, and swelling, Cardiovascular: Negative for chest pain, palpitations, and edema, Respiratory: Negative for shortness of breath, cough, wheezing, and pleuritic chest pain, Abdomen/GI: Negative for abdominal pain, nausea, vomiting, diarrhea, and constipation, Back: Negative for injury and pain, MS/Extremity: Negative for injury and deformity, Skin: Negative for injury, rash, and discoloration, Psych: Negative for depression, anxiety, suicide ideation, homicidal ideation, and hallucinations, Allergy/Immunology: Negative for hives, rash, and allergies, Endocrine: Negative for neck swelling, polydipsia, polyuria, polyphagia, and marked weight changes, Hematologic/Lymphatic: Negative for swollen nodes, abnormal bleeding, and unusual bruising. Abdomen/GI: Positive for Decreased sensation of the need to defecate. : Positive for hematuria, Decreased sensation of the need to urinate. : Positive for 07:14 Neuro: Negative for Denies numbness in the perineal, scrotal and perianal area. kdr Exam: 07:14 Constitutional: This is a well developed, well nourished patient who is awake, alert, kdr and in no acute distress. Head/Face: Normocephalic, atraumatic. Eyes: Pupils equal round and reactive to light, extra-ocular motions intact. Lids and lashes normal. Conjunctiva and sclera are non-icteric and not injected. Cornea within normal limits. Periorbital areas with no swelling, redness, or edema. Neck: Trachea midline, no thyromegaly or masses palpated, and no cervical lymphadenopathy. Supple, full range of motion without nuchal rigidity, or vertebral point tenderness. No Meningismus. Chest/axilla: Normal chest wall appearance and motion. Nontender with no deformity. No lesions are appreciated. Cardiovascular: Regular rate and rhythm with a normal S1 and S2. No gallops, murmurs, or rubs. Normal PMI, no JVD. No pulse deficits. Respiratory: Lungs have equal breath sounds bilaterally, clear to auscultation and percussion. No rales, rhonchi or wheezes noted. No increased work of breathing, no retractions or nasal flaring. Abdomen/GI: Soft, non-tender, with normal bowel sounds. No distension or tympany. No guarding or rebound. No evidence of tenderness throughout. Back: No spinal tenderness. No costovertebral tenderness. Full range of motion. Skin: Warm, dry with normal turgor. Normal color with no rashes, no lesions, and no evidence of cellulitis. MS/ Extremity: Pulses equal, no cyanosis. Neurovascular intact. Full, normal range of motion. Neuro: Awake and alert, GCS 15, oriented to person, place, time, and situation. Cranial nerves II-XII grossly intact. Motor strength 5/5 in all extremities. Sensory grossly intact. Cerebellar exam normal. Normal gait. Psych: Awake, alert, with orientation to person, place and time. Behavior, mood, and affect are within normal limits. Vital Signs: 02/22 16:16 BP 163 / 92; Pulse 61; Resp 16; Temp 98.3; Pulse Ox 99% on R/A; Weight 145.15 kg; iw Height 6 ft. 0 in. (182.88 cm); Pain 0/10; 17:26 BP 152 / 83; Pulse 60; Resp 18; Pulse Ox 98% on R/A; Pain 0/10; em 16:16 Body Mass Index 43.40 (145.15 kg, 182.88 cm) iw MDM: 18:02 Patient medically screened. kdr 02/23 07:14 Data reviewed: vital signs, nurses notes, diagnostic data from outside facility. kdr Counseling: I had a detailed discussion with the patient and/or guardian regarding: the historical points, exam findings, and any diagnostic results supporting the discharge/admit diagnosis, lab results, radiology results, the need for outpatient follow up. ED course: D/w patient results from MRI this morning - mild to occasionally moderate canal stenosis but no cord impingement. 02/22 16:19 Order name: CBC with Diff; Complete Time: 18:00 kdr 02/22 16:19 Order name: Chem 7; Complete Time: 18:00 kdr 02/22 16:19 Order name: Urine Dipstick-Ancillary (obtain specimen); Complete Time: 16:39 kdr 02/22 16:45 Order name: Urine Dipstick--Ancillary (enter results); Complete Time: 18:00 eb Administered Medications: 02/22 18:17 Drug: Bactrim (160 mg-800 mg (DS) 1 tablet Route: PO; em 18:18 Follow up: Response: Medication administered at discharge. em Disposition: 02/22/19 18:02 Discharged to Home. Impression: Hematuria, Cystitis, unspecified with hematuria. - Condition is Stable. - Discharge Instructions: Hematuria, Adult, Urinary Tract Infection, Adult, Interstitial Cystitis. - Prescriptions for Bactrim DS 800- 160 mg Oral Tablet - take 1 tablet by ORAL route every 12 hours for 10 days; 20 tablet. - Medication Reconciliation Form, Thank You Letter, Antibiotic Education form. - Follow up: Freddie Clayton MD; When: 2 - 3 days; Reason: If symptoms return, Further diagnostic work-up, Recheck today's complaints, Continuance of care, Re-evaluation by your physician. - Problem is new. - Symptoms are unchanged. Signatures: Dispatcher [employer] EDMS Anthony Garcia MD MD [facility] Jacinto Cheatham, CORPORATE QUALITY MANAGER CORPORATE QUALITY MANAGER em Elissa Myers RN RN iw Corrections: (The following items were deleted from the chart) 18:20 18:02 02/22/2019 18:02 Discharged to Home. Impression: Hematuria; Cystitis, unspecified em with hematuria. Condition is Stable. Forms are Medication Reconciliation Form, Thank You Letter, Antibiotic Education, Prescription Opioid Use. Follow up: Freddie Clyaton; When: 2 - 3 days; Reason: If symptoms return, Further diagnostic work-up, Recheck today's complaints, Continuance of care, Re-evaluation by your physician. Problem is new. Symptoms are unchanged. kdr
[2019-02-22] MEDS ORDERED: SMZ./TMP. 800/160 MG TABLET ONE (18:10)
[2019-02-22 20:50] VITALS: TEMP 98.3
[2019-02-22 20:51] VITALS: BP 152/83; O2SAT 98
== END 2019-02-22 18:20 | disposition home or self-care (01) ==
LOC: ER 15:49
DX: N30.91 Cystitis, unspecified with hematuria (principal); I10 Essential (primary) hypertension; Z79.01 Long term (current) use of anticoagulants; Z95.0 Presence of cardiac pacemaker
CPT/HCPCS: 36415; 80048; 81003; 85025; 99284

== ENCOUNTER 2019-08-19 10:40 | Observation (INO) | payer BC ==
[2019-08-19] MEDS ORDERED: NA CHLORIDE 0.9% 1,000 ML ONE (11:32)
[2019-08-19 11:40] LABS: Basophils % 0.5 % (0-1.3); Hematocrit 38.6 % (39.6-49.0); Lymphocytes % 13.1 % (15.3-44.8); MPV 8.7 fL (7.6-11.3); RBC Red Blood Cell Count 4.33 M/uL (4.33-5.43)
[2019-08-19 11:44] LABS: Protime INR 1.57
--- NOTE | 2019-08-19 11:50 | RAD REPORT ---
EXAM DESCRIPTION: RAD - Chest Single View - 08/19/2019 11:43 am CLINICAL HISTORY: DYSPNEA COMPARISON: April 2018 Two view chest TECHNIQUE: AP portable chest image was obtained 08/19/2019 11:43 am . FINDINGS: Lungs are clear. Pacemaker is in place. Interstitial pattern matches comparison. Heart and vasculature are normal. No measurable pleural effusion and no pneumothorax. No acute bony abnormalit y seen. No acute aortic findings suspected. IMPRESSION: No acute cardiopulmonary process. No significant change from comparison.
[2019-08-19 12:02] LABS: ALT/SGPT 31 U/L (12-78); AST/SGOT 29 U/L (15-37); Albumin 4.1 g/dL (3.4-5.0); Alkaline Phosphatase 77 U/L (45-117); BUN Blood Urea Nitrogen 19 mg/dL (7-18); Bicarbonate 26 mmol/L (21-32); Bilirubin Direct 0.1 mg/dL (0-0.2); Bilirubin Total 0.5 mg/dL (0.2-1.0); Glucose Level 98 mg/dL (74-106); Lipase 199 U/L (73-393); NT PRO-BNP 56 pg/mL (<125); Potassium 4.2 mmol/L (3.5-5.1); Protein, Total 8.6 g/dL (6.4-8.2); Sodium Level 137 mmol/L (136-145); Troponin (Emerg Dept Use Only) < 0.02 ng/mL (0.0-0.045)
[2019-08-19 12:29] LABS: Magnesium 1.3 mg/dL (1.8-2.4)
--- NOTE | 2019-08-19 13:16 | RAD REPORT ---
EXAM DESCRIPTION: US - Extrem Venous W Compress Mauricio - 08/19/2019 1:08 pm CLINICAL HISTORY: Pain;Swelling Bilateral leg edema and swelling. COMPARISON: No comparisons TECHNIQUE: Real-time sonographic interrogation of the left and right lower extremity deep venous sys tems was performed. FINDINGS: Normal compressibility, flow augmentation, phasic flow and spontaneous flow is identified in both the left and right lower extremity deep venous systems. IMPRESSION: No sonographic evidence of left or right lower extremity deep venous thrombosis.
--- OUTSIDE RECORDS SUMMARY | 2019-08-19 13:16 | XMS REPORT | Summary of Care ---
:1960 Author Organization [facility] Address [address] [place] [id number] Care Team Providers Name Role Phone Freddie Clatyon Primary Care Provider Reason for Visit Reason Comments NURSE VISIT PVR (Routine) Status Reason Specialty Diagnoses / Referred By Referred To Procedures Contact Contact Authorized URO-UROLOGY / Diagnoses Calculus of kidney Hematuria, unspecified Freddie Clayton Laith, Urology Procedures CONSULT UROLOGY NEW VISIT (FIRST TIME) Froy SANDRA [address] [place] [address] [place] [address]. KRISTIN [address] [facility], [address] [place] [address] Phone: Encounter Details Date Type Department Care Team Description 05/21/2019 Nurse Visit [facility] Urology- Asiya Castillo MD [address] [place] [address]. [place] [address] Enlarged prostate [place] Nurse, [facility] Surgery Gu (Primary Dx) [address] [place] [address] Allergies No Known Allergiesdocumented as of this encounter (statuses as of 05/21/2019) Medications Medication Sig Dispensed Refills Start Date End Date Status amiodarone 100 mg Take 200 mg by 0 Active tablet mouth daily. metoprolol tartrate 25 Take 12.5 mg by 0 Active mg tablet mouth 2 (two) times daily. apixaban 5 mg tablet Take 5 mg by 0 Active mouth 2 (two) times daily. lisinopril 10 mg tablet Take 10 mg by 0 Active mouth daily. furosemide 40 mg tablet Take 40 mg by 0 Active mouth 2 (two) times per week. KCL 20 mEq tablet Take by mouth 2 0 Active (two) times per week. Cholecalciferol, Take by mouth. 0 Active Vitamin D3, (VITAMIN D3) 50 mcg (2,000 unit) capsule aspirin 81 mg chewable Take 81 mg by 0 Active tablet mouth daily. documented as of this encounter (statuses as of 05/21/2019) Active Problems Problem Noted Date Right ureteral stone 05/17/2019 Overview: Added automatically from request for evan vazquez [id number] documented as of this encounter (statuses as of 05/21/2019) Social History Tobacco Use Types Packs/Day Years Used Date Former Smoker Smokeless Tobacco: Former User Alcohol Use Drinks/Week oz/Week Comments Not Currently Sex Assigned at Date Recorded Not on file Job Start Date Occupation Industry Not on file Not on file Not on file Travel History Travel Start Travel End No recent travel history available. 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 Pt in NAD w/ pain reported 0/10. Pt preferred language is Omani. Pt. denies fall in last 12 months. Per order Post void residual by bladder scan = 9 ml, results reported to provider.0 Allergies and medications reviewed and updated. Jessie Willett 05/21/2019 4:08 PM documented in this encounter Plan of Treatment Date Type Specialty Care Team Description 05/23/2019 Hospital Encounter Surgery Laurel Castillo MD Right ureteral stone [address] [place] [address] 05/23/2019 Anesthesia Event Surgery Gettanilla, R III, GREASE MACHINE WORKER [address] [place], [place] [address] 05/23/2019 Surgery Surgery Amilcar Castillo MD URETEROSCOPIC STONE [address] [place] [address] Health Maintenance Due Date Last Done Comments HEPATITIS C (HCV) SCREEN 1960 DTaP,Tdap,and Td Vaccines (1 - 10/08/1970 Tdap) COLONOSCOPY 10/08/2009 Zoster Recombinant Vaccine 10/08/2009 (SHINGRIX) (1 of 2) LUNG CANCER SCREEN: Recommended 10/08/2014 for age 55-80 with 30 + pack year history INFLUENZA VACCINE (#1) 2018 PNEUMOCOCCAL 0-64 YEARS COMBINED Aged Out No longer eligible based on SERIES patient's age to complete this topic documented as of this encounter Results Not on filedocumented in this encounter Visit Diagnoses Diagnosis Enlarged prostate - Primary Hypertrophy of prostate without urinary obstruction and other lower urinary tract symptoms (LUTS) documented in this encounter Insurance Payer Benefit Plan Subscriber ID Effective Dates Phone Address Type / Group [facility] [id number] 2016-Nancy [phone] [address] PPO/POS [place] [employer] t [id number] [place] [address] documented as of this encounter
--- OUTSIDE RECORDS SUMMARY | 2019-08-19 13:16 | XMS REPORT ---
:1960 Author Organization [facility] t Address [address] [place] [address] [address] [place] [address] Care Team Providers Name Role Phone Jonathan SANDRA Attending Clinician Doctor Unassigned, Name Attending Clinician Unavailable Problems Condition Condition Condition Status Onset Resolution Last Treating Co mments Source Name Details Category Date Date Treatment Clinician Date BPH loc BPH loc Diagnosis [facility] obs[facility]S [facility] Kidney Kidney Diagnosis Active [facility] stones stones [facility] Hematuria Hematuria Diagnosis Active [facility] Allergies, Adverse Reactions, Alerts This patient has no known allergies or adverse reactions. Medications Ordered Filled Start Stop Current Ordering Indication Dosage Frequency Signature Comments Components Source Medication Medication Date Date Medication? Clinician (SIG) Name Name Tamsulosin Tamsulosin Yes Chhaya [address] [facility] HCl HCl Abiel [facility] Meloxicam Meloxicam Yes Chhaya [address] [facility] Abiel [facility] Metoprolol Metoprolol Yes Chhaya [address] [facility] Tartrate Tartrate Abiel with food [facility] Magnesium Magnesium Yes Chhaya [facility] [place] [facility] Eliquis 5 Eliquis 5 Yes Chhaya one [facility] mg mg [place] [facility] Lisinopril Lisinopril Yes Chhaya [address] [facility] Abiel [facility] Pantoprazol Pantoprazol Yes Chhaya [address] [facility] [facility] e Sodium e Sodium Abiel [facility] Amlodipine Amlodipine Yes Chhaya [address] [facility] [address] Besylate Besylate [place] [facility] Hydrocodone Hydrocodone Yes Chhaya [address] [facility] [address] -Acetaminop -Acetaminop Abiel as needed [facility] Procedures This patient has no known procedures. Encounters Start End Encounter Admission Attending Care Care Encounter Source Date/Time Date/Time Type Type Clinicians Facility Department ID 2019-01-10 Outpatient [facility] [id number] 08:23:13 2019-08-09 2019-08-09 Refill Gris [facility] [id number] 00:00:00 00:00:00 Amilcar Ashley [id number] [place] [id number] Professio [id number] [address] 2019-08-04 2019-08-04 Refill Gris [facility] [id number] 00:00:00 00:00:00 Amilcar Ashley [id number] [place] [id number] Surgical [id number] [place] 07 2019-06-28 2019-06-28 Office Jonathan [facility] [id number] 10:18:35 11:44:02 Visit Amilcar Ashley [id number] [place] [id number] Professio [id number] [address] 2019-06-28 2019-06-28 Orders Doctor JHON [id number] 00:00:00 00:00:00 Only Unassigned, EMA [id number] [place] [facility] [id number] 2019-04-19 2019-04-19 [place] [id number] 11:15:00 11:15:00 t Specialty/U Dee Dee kes - Specialty rology Memori a /[facility] Clinic [facility] Results This patient has no known results.
--- OUTSIDE RECORDS SUMMARY | 2019-08-19 13:17 | XMS REPORT | Summary of Care ---
:1960 Author Organization [facility] Address [address] [place] [address] Care Team Providers Name Role Phone ClaytonFreddie Froy Primary Care Provider Reason for Referral Other (Routine) Status Reason Specialty Diagnoses / Referred By Contact Refe rred To Procedures Contact New Request Diagnoses Right ureteral stone Mary Loyola MD Alzweri, Laith, MD Procedures Discharge Follow-up: Specialty Provider MARY LOYOLA; [address] [place] [phone] Phone: Phone: Fax: (Routine) Status Reason Specialty Diagnoses / Referred By Referred To Procedures Contact Contact Authorized Diagnostic Diagnoses Right ureteral stone Mary Loyola, Radiology Procedures FL TIME OR (NON-REPORTABLE) [address] [place] [phone] Reason for Visit Auth/Cert Status Reason Specialty Diagnoses / Procedures Referred By C ontact Referred To Contact Surgery Diagnoses Calculus of ureter Right ureteral stone [N20.1] Adc Pre/Pacu/Post Procedures AR CYSTO/URETERO/PYELOSCOPY, CALCULUS [place] URETEROSCOPIC STONE MANIPULATION [id number] - AR CYSTO/URETERO/PYELOSCOPY, CALCULUS [place] [address] [place], [place] [address] Phone: Fax: Encounter Details Date Type Department Care Team Description 05/23/2019 Hospital Encounter [facility] Laurel Warner MD Right ureteral [address] [place], [place] [phone] Allergies No Known Allergiesdocumented as of this encounter (statuses as of 05/23/2019) Medications Medication Sig Dispensed Refills Start Date End Date Status amiodarone 100 Take 200 mg 0 Act anderson mg tablet by mouth daily. metoprolol Take 12.5 mg 0 Active tartrate 25 mg by mouth 2 tablet (two) times daily. apixaban 5 mg Take 5 mg by 0 Act anderson tablet mouth 2 (two) times daily. lisinopril 10 mg Take 10 mg by 0 Active tablet mouth daily. furosemide 40 mg Take 40 mg by 0 Active tablet mouth 2 (two) times per week. Cholecalciferol, Take by 0 Act anderson Vitamin D3, mouth. (VITAMIN D3) 50 mcg (2,000 unit) capsule aspirin 81 mg Take 81 mg by 0 Ac tive chewable tablet mouth daily. tamsulosin 0.4 Take 1 30 capsule 0 05/23/2019 Act anderson mg 24 hr capsule by capsuleIndicatio mouth daily. ns: Right ureteral stone oxybutynin Take 1 tablet 30 tablet 0 05/23/2019 Acti ve chloride 5 mg by mouth 3 tabletIndication (three) times s: Right daily as ureteral stone needed for Bladder spasms. For bladder spasms or stent pain. KCL 20 mEq Take by 0 Discontin ued tablet mouth 2 (two) 0 (Side effects) times per week. documented as of this encounter (statuses as of 05/23/2019) Active Problems Problem Noted Date Morbid obesity with body mass index of 50 or higher Right ureteral stone 05/17/2019 Overview: Added automatically from request for evan vazquez [id number] documented as of this encounter (statuses as of 05/23/2019) Social History Tobacco Use Types Packs/Day Years [...] Sign Reading Time Taken Comments Blood Pressure 130/76 05/23/2019 10:00 AM MAINFRAME APPLICATIONS DEVELOPER Pulse 60 05/23/2019 10:00 AM MAINFRAME APPLICATIONS DEVELOPER Temperature 36.2 C (97.1 F) 05/23/2019 8:47 AM MAINFRAME APPLICATIONS DEVELOPER Respiratory Rate 16 05/23/2019 10:00 AM MAINFRAME APPLICATIONS DEVELOPER Oxygen Saturation 97% 05/23/2019 10:00 AM MAINFRAME APPLICATIONS DEVELOPER Inhaled Oxygen Concentration - - Weight 145 kg (319 lb 10.7 oz) 05/22/2019 8:30 AM MAINFRAME APPLICATIONS DEVELOPER Height 170.2 cm (5' 7.01") 05/22/2019 8:30 AM MAINFRAME APPLICATIONS DEVELOPER Body Mass Index 50.05 05/22/2019 8:30 AM MAINFRAME APPLICATIONS DEVELOPER documented in this encounter Discharge Summaries Mary Loyola MD - 05/23/2019 7:18 AM CST Date of Service: 05/23/2019 ADMIT DATE: 05/23/2019 DISCHARGE DATE: 05/23/2019 ATTENDING MD: Mary Loyola MD PCP: Freddie Clayton Disposition: Home Condition: Good Mode to Transport: Car Transient Medical Bed: No MRIS (Medical Release Intensive Supervision) Complete: No Activity: As tolerated Diet: Regular Principal Diagnosis: (main reason for admissions after evaluation): 12 mm Right obstructing proximal ureteral stone Procedures: (operations, radiologic, cardiac, bedside procedures while hospitalized) CYSTOSCOPY,INSERT URETHRAL STENT [[id number]] URETEROSCOPY [[id number] (Type: Custom)] FLOURO <1 HR, NON-INTERPRET INTERVENTIONAL [[id number] (Type: Custom)] Pertinent Labs:none Hospital Course: Keo Richards is a 58 year old male with above diagnosis status post above procedures. Patient tolerated the uncomplicated procedure well and medically stable to discharge back home. Discharge Medications: Medication List ASK your doctor about these medications amiodarone 100 mg tablet Commonly known as: PACERONE apixaban 5 mg tablet Commonly known as: ELIQUIS aspirin 81 mg chewable tablet furosemide 40 mg tablet Commonly known as: LASIX KCL 20 mEq tablet Commonly known as: KLOR-CON M20 lisinopril 10 mg tablet Commonly known as: PRINIVIL,ZESTRIL metoprolol tartrate 25 mg tablet Commonly known as: LOPRESSOR VITAMIN D3 50 mcg (2,000 unit) capsule Generic drug: Cholecalciferol (Vitamin D3) Follow-Up : Home today RTC in 2 weeks to discuss Right USM in 3-4 weeks Regular analgesia Tylenol and PRN NSAID once daily Tamsulosin and Ditropan for stent symptoms , hold KCL while taking Ditropan. Can resume KCL if not taking Ditropan Increase fluid intake Avoid constipation Patient is expected to see blood in the urine, since his Eliquis was not stopped and should continueon all home medications Mary Loyola MD Urology Faculty documented in this encounter Discharge Instructions InstructionsSalima Castillo RN - 05/23/2019General Discharge Instructions: Follow instructions as indicated below: 1. The medication that was used will be acting in your system for the next 24 hours, so you might feel a little drowsy, with impaired judgment and or motor function. This feeling should go wear off. Because the medication is still in your system for the next 24 hours you SHOULD NOT: Drive a car, operate machinery or power tool. Drink any alcohol beverages (including beer or wine). Make any important decisions or sign any legal documents. 2. You should rest the remainder of the day and not engage in any physical activity. Move slowly today. After lying down, sit on the edge of the bed for a moment before standing. YOU ARE RESPONSIBLEFOR HAVING SOMEONE AT HOME WITH YOU DURING THE AFTERNOON AND NIGHT IMMEDIATELY FOLLOWING YOUR SURGERY. Patient should cough and deep breathe every 2-4 hours while awake to avoid respiratory complications. 3. Activity: As tolerated 4. Wound/ dressing care: No wound or dressing to care for. 5. Special Instructions: Keep follow-up appointment as scheduled. 6. Other discharge instructions 7. Weight: In general, sudden weight gains or losses should be reported to your provider. Cardiac patients should weigh daily and notify their provider for a weight gain of 3 pounds per day or 5 pounds per week. 8. Tobacco Avoidance: Follow recommendations below 9. Because the medications used could procedure some residual nausea and vomiting after you go home,you should eat lightly today, starting with clear liquids (broth, soft drinks, apple juice, jello) and toast or crackers, progressing to bland solid foods and then to your normal diet as tolerated, unle ss otherwise stated by your surgeon. If you get sick, wait a couple of hours and then begin to eat. After 24 hours the nausea should be gone. If your nausea persists, contact your physician. 10. You may experience some pain and your physician will advise you on what to take for discomfort.This should be taken as directed. If the pain is not relieved, contact your physician. You may also have a sore throat from the airway that was in place. You may uses lozenges, throat spray (such as Chloraseptic), or warm salt water gargles for symptomatic relief. 11. If you feel warm, take your temperature. If it is 101 degrees or above call your physician. 12. If you are unable to urinate within five hours after your procedure, call your physician. 13. The type of surgery performed will determine how much bleeding (if any) to expect. Normally, some spotting might occur. If your dressing pad becomes saturated, notify your physician. Elevate surgical site, if applicable, to reduced swelling and pain. Tips on preventing a surgical site infection.. Dont smoke. It is best to quit at least 30 days before surgery, but quitting after surgery is also helpful. If you are diabetic, keep your blood sugar well controlled. WASH YOUR HANDS. Keep your wound clean and remember to wash your hands before and after contact with the area. All health care workers should also wash their hands or use an alcohol based hand rub prior to examining you. If antibiotics are prescribed, take them as directed. Finish the entire course of antibiotics. Call your doctor if you have signs of infection: ? Increased tenderness at the surgical site ? Red streaks or increased redness of the area ? Bad-smelling discharge from the incision ? Fever of 101F or higher ? General tired feeling that doesnt improve If you experience any of the following symptoms fever greater than 101, uncontrolled pain not relieved by pain medications, uncontrolled nausea or vomiting or any other concerns you have, please followup with your physician. For worsening symptoms/changing condition/problems or questions: Non-emergency/urgent: Call the Desktime Hotline at or Emergency: Go to the closest emergency room or call 911 If you receive the patient satisfaction survey by mail please complete and return and let us know how we are doing. TOBACCO AVOIDANCE Exposure to tobacco either from smoking or from second hand (environmental) smoke or smokeless tobacco (snuff) is damaging to your health. This information is to encourage everyone to avoid tobacco exposure. It is recommended that you: ? If you smoke or use smokeless tobacco, we encourage you to quit. ? If you have already quit smoking, continue your good work! ? If you do not smoke or use smokeless tobacco, do not start. ? Avoid secondhand smoke. Additional Resources You may want to contact these organizations for further information on smoking and how to quit. [place] [employer], http://www.lungusa.org/stop-smoking/ [place] [employer], http://www.cancer.org/Healthy/StayAwayfromTobacco/index [place] [employer], http://www.heart.org/HEARTORG/GettingHealthy/QuitSmoking/Quit-Smoking_[facility] _001085_SubHomePage.jsp Okay to take acetaminophen every 6 hours and ibuprofen once daily as needed for pain per Dr. Loyola. documented in this encounter Plan of Treatment Date Type Specialty Care Team Description 06/17/2019 Office Visit Urology Mary Loyola MD [address] [place] [address]. [place] [address] Ten, Jose Miguel Surg Spec Procedure Health Maintenance Due Date Last Done Comments [...] this topic documented as of this encounter Procedures Procedure Name Priority Date/Time Associated Comments Diagnosis FL TIME OR Routine 05/23/2019 8:24 AM Right ureteral Result s for this (NON-REPORTABLE) MAINFRAME APPLICATIONS DEVELOPER stone procedure a re in the results section. MEDICAL Routine 05/16/2019 12:01 AM RELEASE/CLEARANCE MAINFRAME APPLICATIONS DEVELOPER FORMS DISCLOSURE AND Routine 05/16/2019 12:01 AM CONSENT, MEDICAL AND MAINFRAME APPLICATIONS DEVELOPER SURGICAL PROCEDURES documented in this encounter Results FL TIME OR (NON-REPORTABLE) (05/23/2019 8:24 AM MAINFRAME APPLICATIONS DEVELOPER) Specimen Narrative Performed At These images do not require a Radiology diagnostic rep ort. PACS Performing Organization Address City/State/Zipcode Phone Number PACS documented in this encounter Visit Diagnoses Diagnosis Right ureteral stone - Primary Calculus of ureter Morbid obesity with body mass index of 5 0 or higher documented in this encounter Administered Medications Medication Order MAR Action Action Date Dose Rate Site FENTanyl PF (SUBLIMAZE (PF)) injection 2 5 mcg 25 mcg, Slow IV Push, Q5MIN PRN, 4 doses, Starting Kae 05/23/19 at 0847, Until Discontinued, Routine, Pain (scale 4-6), PACU lactated ringers IV infusion 1,000 mL at 75 mL/hr, 1,000 mL, IV Infusion, CONT INUOUS, Starting Kae 05/23/19 at 0900, Until Discontinued, Routine, PACU Medication Order MAR Action Action Date Dose Rate Site lactated ringers IV infusion New Bag 05/23/2019 6:39 AM MAINFRAME APPLICATIONS DEVELOPER 1,000 mL 20 mL/hr 1,000 mL at 20 mL/hr, 1,000 mL, IV Infusion, ONCE, 1 dose, Kae 05/23/19 at 0645, Routine, DSU Pre-op ondansetron (ZOFRAN (PF)) injection 4 mg Given 05/23/2019 8:59 AM MAINFRAME APPLICATIONS DEVELOPER 4 mg 4 mg, Slow IV Push, PRN, 1 dose, Starting Kae 05/23/19 at 0847, Until Kae 20 at 0859, Routine, Nausea and Vomiting (N/V), PACU documented in this encounter Insurance Payer Benefit Plan Subscriber ID Effective Dates Phone Address Type / Group [facility] [id number] 2016-Nancy [phone] [address] PPO/POS [place] [employer] t 7 [id number] [place] [address] documented as of this encounter
--- OUTSIDE RECORDS SUMMARY | 2019-08-19 13:17 | XMS REPORT | Summary of Care ---
:1960 Author Organization [facility] - [facility] Address [address] [place] [address] Care Team Providers Name Role Phone Freddie Clayton Froy Primary Care Provider Encounter Details Date Type Department Care Team Description 05/29/2019 Orders Only [facility] Doctor Unassigned, No [address] [facility] [place] [address] [address] [place] [address] Allergies No Known Allergiesdocumented as of this encounter (statuses as of 05/29/2019) Medications Medication Sig Dispensed Refills Start Date End Date Status amiodarone 100 mg Take 200 mg by 0 Active tablet mouth daily. metoprolol tartrate Take 12.5 mg by 0 Active 25 mg tablet mouth 2 (two) times daily. apixaban 5 mg tablet Take 5 mg by mouth 0 Active 2 (two) times daily. lisinopril 10 mg Take 10 mg by 0 Active tablet mouth daily. furosemide 40 mg Take 40 mg by 0 Active tablet mouth 2 (two) times per week. Cholecalciferol, Take by mouth. 0 Active Vitamin D3, (VITAMIN D3) 50 mcg (2,000 unit) capsule aspirin 81 mg Take 81 mg by 0 Ac tive chewable tablet mouth daily. tamsulosin 0.4 mg 24 Take 1 capsule by 30 capsule 0 05/23/2019 Active hr mouth daily. capsuleIndications: Right ureteral stone oxybutynin chloride 5 Take 1 tablet by 30 tablet 0 05/23/2019 Active mg tabletIndications: mouth 3 (three) Right ureteral stone times daily as needed for Bladder spasms. For bladder spasms or stent pain. documented as of this encounter (statuses as of 05/29/2019) Active Problems Problem Noted Date Morbid obesity with body mass index of 50 or higher Right ureteral stone 05/17/2019 Overview: Added automatically from request for evan vazquez [id number] documented as of this encounter (statuses as of 05/29/2019) Social History Tobacco Use Types Packs/Day Years [...] of this encounter Last Filed Vital Signs Not on filedocumented in this encounter Plan of Treatment Date Type Specialty Care Team Description 06/17/2019 Office Visit Urology Amilcar Castillo MD [address] [place] [phone] Ten, Jose Miguel Surg Spec Procedure [...] this topic documented as of this encounter Implants Implanted Type Area Erp Specialist Device Shelf Model / Identifier Expiration Date Ser ial / Lot Stent Ureteral Percuflex Plus 6x24 [employer] # [id number] [[id number]] [employer] [id number] 20 / Implanted: Qty: 1 on 05/23/2019 by Amilcar Acosta MD at [facility] 0 / 0 documented as of this encounter Procedures Procedure Name Priority Date/Time Associated Diagnosis Comme nts CONSENT/REFUSAL FOR Routine 05/29/2019 6:58 AM CDT DIAGNOSIS AND TREATMENT documented in this encounter Results Not on filedocumented in this encounter Insurance Payer Benefit Plan Subscriber ID Effective Dates Phone Address Type / Group [facility] [employer] [place] [employer] [id number] 2016-Nancy [phone] [address] PPO/POS [place] [employer] t 7 [id number] [place] [address] documented as of this encounter
--- OUTSIDE RECORDS SUMMARY | 2019-08-19 13:17 | XMS REPORT | Summary of Care ---
:1960 Author Organization [facility] Address [address] [place] [address] Care Team Providers Name Role Phone Freddie Clayton Primary Care Provider Reason for Referral MRI/CAT Scan (Routine) Status Reason Specialty Diagnoses / Referred By Referred To Procedures Contact Contact New Request Diagnostic Diagnoses Right ureteral stone Gramm, Inga Radiology Procedures CT ABDOMEN PELVIS WO CONTRAST A, VIROLOGIST [address] [address] Reason for Visit MRI/CAT Scan (Routine) Status Reason Specialty Diagnoses / Referred By Referred To Procedures Contact Contact New Request Diagnostic Diagnoses Right ureteral stone Gramm, Inga Radiology Procedures CT ABDOMEN PELVIS WO CONTRAST A, VIROLOGIST [address] [address] Encounter Details Date Type Department Care Team Description 05/21/2019 Hospital Encounter [facility] Karolina Ballesteros A, VIROLOGIST Arrived [facility] [address] [address] [place] [address] [phone] Allergies No Known Allergiesdocumented as of this encounter (statuses as of 05/22/2019) Medications Medication Sig Dispensed Refills Start Date [...] as of this encounter (statuses as of 05/22/2019) Active Problems Problem Noted Date Right ureteral stone 05/17/2019 Overview: Added automatically from request for evan vazquez [id number] documented as of this encounter (statuses as of 05/22/2019) Social History Tobacco Use Types Packs/Day Years [...] Laurel Castillo MD Right ureteral stone [address] [facility] [place] [address] 05/23/2019 Anesthesia Event Surgery Fontanilla, R III, REGIONAL ENVIRONMENTAL MANAGER [address] [place], [place] [address] 05/23/2019 Surgery Surgery Amilcar Castillo MD URETEROSCOPIC STONE [address] [facility] [place] [phone] Name Type Priority Associated Diagnoses Date/Ti me CT ABDOMEN PELVIS WO IMAGING Routine Right ureteral stone 05/21/2019 12:31 PM NUMBERER AND WIRER CONTRAST Name Type Priority Associated Diagnoses Order S chedule CT ABDOMEN PELVIS WO IMAGING Routine Right ureteral stone 1 Occurrences starting CONTRAST 05/21/2019 unti l 05/21/2019 Health Maintenance Due Date Last Done Comments [...] filedocumented in this encounter Visit Diagnoses Diagnosis Right ureteral stone Calculus of ureter documented in this encounter Insurance Payer Benefit Plan Subscriber ID Effective Dates Phone Address Type / Group [id number] 2016-Nancy [phone] [address] PPO/POS [place] SELECT t 7 [id number] [place] [address] documented as of this encounter
--- OUTSIDE RECORDS SUMMARY | 2019-08-19 13:17 | XMS REPORT | Summary of Care ---
:1960 Author Organization [facility] Address [address] [place] [address] Care Team Providers Name Role Phone Freddie Clayton Froy Primary Care Provider Encounter Details Date Type Department Care Team Description 05/23/2019 Orders Only [facility] Doctor Unassigned, No 301 [facility] [place] [address] [address] [place] [id number] Allergies No Known Allergiesdocumented as of this encounter (statuses as of 05/24/2019) Medications Medication Sig Dispensed Refills Start Date [...] as of this encounter (statuses as of 05/24/2019) Active Problems Problem Noted Date Morbid obesity with body mass index of 50 or higher Right ureteral stone 05/17/2019 Overview: Added automatically from request for evan vazquez [id number] documented as of this encounter (statuses as of 05/24/2019) Social History Tobacco Use Types Packs/Day Years [...] 06/17/2019 Office Visit Urology Amilcar Castillo MD [address] [place] [phone] , Jose Miguel Surg Spec Procedure Health Maintenance [...] of this encounter Implants Implanted Type Area Manager Facility Device Shelf Model / Identifier Expiration Date Ser ial / Lot Stent Ureteral Percuflex Plus 6x24 [employer] # [id number] [[id number]] [employer] [id number] 20 / Implanted: Qty: 1 on 05/23/2019 by Amilcar Acosta MD at [facility] 0 / 0 documented as of this encounter Procedures Procedure Name Priority Date/Time Associated Diagnosis Comme SURGERY - [facility] Routine 05/23/2019 12:01 AM EXAM PROCTOR documented in this encounter Results Not on filedocumented in this encounter Insurance Payer Benefit Plan Subscriber ID Effective Dates Phone Address Type / Group [facility] [id number] 2016-Nancy [phone] [address] PPO/POS [place] [employer] t 7 [id number] [place] [address] documented as of this encounter
--- OUTSIDE RECORDS SUMMARY | 2019-08-19 13:17 | XMS REPORT | Summary of Care ---
:[address] [facility] Address [address] [place] [address] Care Team Providers Name Role Phone Freddie Clayton Primary Care Provider Encounter Details Date Type Department Care Team Description 05/16/[address] [facility] Doctor Unassigned, No 301 [facility] [place] [address] [address] [place] [address] Allergies No Known Allergiesdocumented as of this [...] (VITAMIN D3) 50 mcg (2,000 unit) capsule documented as of this encounter (statuses as of 05/22/2019) Active Problems Problem Noted Date Right ureteral stone 05/17/2019 Overview: Added automatically from request for evan jony [id number] documented as of this encounter (statuses as of 05/22/2019) Social History Tobacco Use Types Packs/Day Years Used Date Never Assessed Sex Assigned at Date Recorded Not on [...] Laurel Castillo MD Right ureteral stone [address] [place] [address] 05/23/2019 Anesthesia Event Surgery Fontanilla, R III, GRADES 9 THROUGH [address] TE[address] [place], [place] [address] 05/23/2019 Surgery Surgery Amilcar Castillo MD URETEROSCOPIC STONE [address] [facility] [address] [place] [address] Health Maintenance Due Date Last [...] Name Priority Date/Time Associated Diagnosis Comme nts DISCLOSURE AND CONSENT, Routine 05/16/2019 12:01 AM MEDICAL AND SURGICAL POLISHER BRASS PROCEDURES documented in this encounter Results Not on filedocumented in this encounter Insurance Payer Benefit Plan Subscriber ID Effective Dates Phone Address Type / Group [facility] [employer] [facility] [id number] 11/18/2016-Nancy [phone] [address] PPO/POS [place] [employer] t 7 [id number] [place] [address] documented as of this encounter
--- OUTSIDE RECORDS SUMMARY | 2019-08-19 13:17 | XMS REPORT | Summary of Care ---
:[address] [facility] - [facility] Address [address] [place] [address] Care Team Providers Name Role Phone Freddie Clayton Froy Primary Care Provider Encounter Details Date Type Department Care Team Description 05/22/[address] [facility] Doctor Unassigned, No [address] [facility] [place] [address] [address] [place] [address] Allergies No Known Allergiesdocumented as of this [...] Overview: Added automatically from request for evan george [id number] documented as of this encounter (statuses as [...] Laurel Castillo MD Right ureteral stone [address] [facility] [place] [address] 05/23/2019 Anesthesia Event Surgery Fontanilla, R III, RN FAMILY [address] [place], [place] [address] 05/23/2019 Surgery Surgery Amilcar Castillo MD URETEROSCOPIC STONE [address] [facility] [place] [address] Health Maintenance Due Date Last [...] Name Priority Date/Time Associated Diagnosis Comme nts EXTERNAL PROVIDER Routine 05/22/2019 12:01 AM LABOR ECONOMICS TEACHER RECORDS documented in this encounter Results Not on filedocumented in this encounter Insurance Payer Benefit Plan Subscriber ID Effective Dates Phone Address Type / Group [facility] [id number] 2016-Nancy [phone] [address] PPO/POS [place] [employer] t 7 [id number] [place] [address] documented as of this encounter
--- OUTSIDE RECORDS SUMMARY | 2019-08-19 13:18 | XMS REPORT | Summary of Care ---
:1960 Author Organization [facility] - [facility] Address [address] [place] [address] Care Team Providers Name Role Phone Freddie Clayton Froy Primary Care Provider Reason for Referral MRI/CAT Scan (Routine) Status Reason Specialty Diagnoses / Referred By Referred To Procedures Contact Contact New Request Diagnostic Diagnoses Gross hematuria Mat Hewitt, Radiology Procedures CT ABDOMEN PELVIS WO CONTRAST DO [address] [place] [address]. [address] [place] [address] Reason for Visit Reason Comments Kidney Stones Blood In Urine Auth/Cert Status Reason Specialty Diagnoses / Referred By Referred To Procedures Contact Contact Emergency Medicine Adc Em ergency Dept [address] [facility] [place] [address] Fax: Encounter Details Date Type Department Care Team Description 05/29/2019 Emergency ADC-Emergency Mat Hewitt DO Gross hematuria (Primary Dx); Department [address] [place] [address] Right ureteral stone [address] [facility] [address] [place] [address] [place] [id number] Allergies No Known Allergiesdocumented as of this [...] oxybutynin Take 1 tablet 30 tablet 0 05/29/2019 Acti ve chloride 5 mg by mouth 3 tabletIndication (three) times s: Right daily. For ureteral stone bladder spasms or stent pain. oxybutynin Take 1 tablet 30 tablet 0 05/23/2019 Disc ontinued chloride 5 mg by mouth 3 0 (Reor ravi) tabletIndication (three) times s: Right daily as ureteral stone needed for Bladder spasms. For bladder spasms or stent pain. documented as of this encounter (statuses as of 05/29/2019) Active Problems Problem Noted Date Morbid obesity with body mass index of 50 or higher Right ureteral stone 05/17/2019 Overview: Added automatically from request for evan george [id number] documented as of this encounter (statuses as [...] Sign Reading Time Taken Comments Blood Pressure 145/85 05/29/2019 9:00 AM CDT Pulse 64 05/29/2019 9:00 AM CDT Temperature 36.5 C (97.7 F) 05/29/2019 7:30 AM CDT Respiratory Rate 16 05/29/2019 9:00 AM CDT Oxygen Saturation 96% 05/29/2019 9:00 AM CDT Inhaled Oxygen Concentration - - Weight 144.7 kg (319 lb) 05/29/2019 7:08 AM CDT Height 177.8 cm (5' 10") 05/29/2019 7:08 AM CDT Body Mass Index 45.77 05/29/2019 7:08 AM CDT documented in this encounter Discharge Instructions AttachmentsThe following attachments cannot be sent through Care Everywhere. Hematuria (Chinese)documented in this encounter Plan of Treatment Date Type Specialty Care Team Description 06/17/2019 Office Visit Urology Amilcar Castillo MD [address] [place] [address]. [place] [address] Rm, Adc Surg Spec Procedure Name Type Priority Associated Diagnoses Date/Ti va URINE CULTURE LAB STAT Gross hematuria 05/29/2019 8:01 AM CDT Name Type Priority Associated Diagnoses Order S chedule URINE CULTURE LAB Routine Gross hematuria ONCE for 1 Occurrences starting 05/29/2019 unti l 05/29/2019 Health Maintenance Due Date Last Done Comments [...] of this encounter Implants Implanted Type Area Tearer Press Clipping Device Shelf Model / Identifier Expiration Date Ser ial / Lot Stent Ureteral Percuflex Plus 6x24 [employer] # [id number] [[id number]] [employer] [id number] 20 / Implanted: Qty: 1 on 05/23/2019 by Amilcar Acosta MD at [facility] 0 / 0 documented as of this encounter Procedures Procedure Name Priority Date/Time Associated Comments Diagnosis CT ABDOMEN PELVIS WO Routine 05/29/2019 8:02 Gross hematuria Results for this CONTRAST AM CDT procedure are i n the results section. URINALYSIS STAT 05/29/2019 8:01 Gross hematuria Results for this AM CDT procedure are i n the results section. CBC WITH DIFFERENTIAL STAT 05/29/2019 8:00 Gross hematuria Results for this AM CDT procedure are i n the results section. CBC WITH DIFFERENTIAL Routine 05/29/2019 8:00 Gross hematuria Results for this AM CDT procedure are i n the results section. COMP. METABOLIC PANEL STAT 05/29/2019 8:00 Gross hematuria Results for this (09200) AM CDT procedure are i n the results section. documented in this encounter Results CT ABDOMEN PELVIS WO CONTRAST (05/29/2019 8:02 AM CDT) Specimen Narrative Performed At CT Abdomen and Pelvis without contrast. PACS/VR/DOSE CLINICAL HISTORY: FLANK PAIN WITH ARASH TURIA. R/O RENAL STONES. TECHNIQUE: Multidetector helical CT acquisition was ob tained from the lung bases to the greater trochanters without oral and IV c ontrast. The images were reviewed in lung, bone, and soft ti ssue windows. FINDINGS: Absence of intravenous contrast limits shi luation of the solid organs. Evaluation of the bowel is also limited by lac k of oral contrast. Comparison made with 04/12/2019 study. Lower lungs: Pacemaker noted. Visualized lungs are clear. No pleural effusion or pericardial effusion. No hia vanessa hernia. Liver, Gallbladder and Spleen: No gross pathology. Peritoneum: No free air or free fluid. No lymphadenopathy. Pancreas and Adrenals: Unremarkable pa ncreas and adrenal glands. Kidneys and Ureters: Double-J right ureteral stent in good position. 12 x 5 mm stone noted in the proximal right ureter causing mi nimal obstruction. An additional 3 mm stone noted in the upper pole of the right kidney. Additional faint radiopaque densities ar e seen in the right kidneys calyceal system without any discrete wel l-formed stone visualized. 2 mm nonobstructing stone in the middle calyx of the l eft kidney. No stone in the left ureter. Vessels: Minimal atherosclerosis in the lower abdominal aorta and iliac arteries. Right common iliac artery is dilated measuri ng 17 mm in maximum diameter. Retroperitoneum: No abnormal fluid or ly mphadenopathy. Bowel: The radiopaque material in the ga stric chamber, likely for early ingested medication. Normal appendix vis ualized. Diverticulosis of the sigmoid and descending colon noted witho ut any acute changes of diverticulitis. Bladder and Reproductive Organs: Unrem arkable. Bones: Degenerative disc disease at L4-L5 and L2-L3. D egenerative changes in the lower thoracic spines with old trauma with prom inent Schmorl's nodes and mild compression deformity of T7, T8 , T9, T10, T11, T12, L1 and L2 vertebral bodies. No signs of AVN in the femoral heads. Soft tissues: Small fat-containing direc t type right inguinal hernia suspected. CONCLUSION: 1. 12 mm stone (attenuation more than 1500 HU) in the proximal right ureter causing minimal obstructive hydronephrosis. Double-J r ight ureteral stent in good position. 2. 3 mm stone in the right kidney and 2 mm stone in the left kidney. No left-sided hydronephrosis. Procedure Note [facility], Radiant Results Inft User - 2019 8:[address] Abdomen and Pelvis without contrast. CLINICAL HISTORY: FLANK PAIN WITH HEMAT URIA. R/O RENAL STONES. TECHNIQUE: Multidetector helical CT acqu isition was obtained from the lung bases to the greater trochanters without oral and IV contrast. The images were reviewed in lung, bone, and soft ti ssue windows. FINDINGS: Absence of intravenous contra st limits evaluation of the solid organs. Evaluation of the bowel is also limited by lack of oral contrast. Comparison made with 04/12/2019 study. Lower lungs: Pacemaker noted. Visualized lungs are clear. No pleural effusion or pericardial effusion. No hia vanessa hernia. Liver, Gallbladder and Spleen: No gross pathology. Peritoneum: No free air or free fluid. No lymphadenopathy. Pancreas and Adrenals: Unremarkable coates creas and adrenal glands. Kidneys and Ureters: Double-J right uret eral stent in good position. 12 x 5 mm stone noted in the proximal right ure ter causing minimal obstruction. An additional 3 mm stone noted in the upper pole of the right kidney. Additional faint radiopaque densities ar e seen in the right kidneys calyceal system without any discrete wel l-formed stone visualized. 2 mm nonobstructing stone in the middle calyx of the left kidney. No stone in the left ureter. Vessels: Minimal atherosclerosis in the lower abdominal aorta and iliac arteries. Right common iliac artery is d ilated measuring 17 mm in maximum diameter. Retroperitoneum: No abnormal fluid or ly mphadenopathy. Bowel: The radiopaque material in the ga stric chamber, likely for early ingested medication. Normal appendix vis ualized. Diverticulosis of the sigmoid and descending colon noted witho ut any acute changes of diverticulitis. Bladder and Reproductive Organs: Unrema rkable. Bones: Degenerative disc disease at L4-L 5 and L2-L3. Degenerative changes in the lower thoracic spines with old tr auma with prominent Schmorl's nodes and mild compression deformity of T7, T8 , T9, T10, T11, T12, L1 and L2 vertebral bodies. No signs of AVN in the femoral heads. Soft tissues: Small fat-containing direc t type right inguinal hernia suspected. CONCLUSION: 1. 12 mm stone (attenuation more than 15 00 HU) in the proximal right ureter causing minimal obstructive hydronephros is. Double-J right ureteral stent in good position. 2. 3 mm stone in the right kidney and 2 mm stone in the left kidney. No left-sided hydronephrosis. Performing Organization Address [facility] [email or web address] Phone Number PACS/VR/DOSE URINALYSIS (05/29/2019 8:01 AM CDT) Pathologist Sig nature APPEARANCE Hazy (A) Clear [facility] COLOR Red (A) Yellow [facility] PH 7.0 4.8 - 8.0 [facility] SP GRAVITY 1.008 1.003 - 1.030 [facility] GLU U QUAL 50 mg/dL (A) Normal [facility] BLOOD 2+ (A) Negative [facility] KETONES Negative Negative [facility] PROTEIN 100 mg/dL (A) Negative [facility] UROBILIN Normal Normal [facility] BILIRUBIN Negative Negative [facility] NITRITE Negative Negative [facility] LEUK TWAN Negative Negative [facility] RBC/HPF >182 (H) 0 - 3 HPF [facility] WBC/HPF 5 0 - 5 HPF [facility] BACTERIA Negative Negative [facility] Specimen Urine - URINE, CLEAN CATCH Performing Organization Address [facility] Cent[facility]ode Phone Number [facility] CLIA: [id number], [address] [place], [place] [address] CBC WITH DIFFERENTIAL (05/29/2019 8:00 AM CDT) Pathologist Sig nature WBC 9.39 4.20 - 10.70 [facility] 10*3/L [facility] RBC 4.03 (L) 4.26 - 5.52 [facility] 10*6/L [facility] HGB 12.6 12.2 - 16.4 [facility] g/dL [facility] HCT 35.5 (L) 38.4 - 49.3 % [facility] MCV 88.1 81.7 - 95.6 fL [facility] MCH 31.3 26.1 - 32.7 pg [facility] MCHC 35.5 (H) 31.2 - 35.0 [facility] g/dL [facility] RDW-SD 42.8 38.5 - 51.6 fL [facility] RDW-CV 13.2 12.1 - 15.4 % [facility] PLT 321 150 - 328 [facility] 10*3/L [facility] MPV 10.6 9.8 - 13.0 fL [facility] NRBC/100 WBC 0.0 0.0 - 10.0 /100 [facility] WBCs [facility] NRBC x10^3 <0.01 10*3/L [facility] GRAN MAT (NEUT) % 67.5 % [facility] IMM GRAN % 0.50 % [facility] LYMPH % 19.8 % [facility] MONO % 9.8 % [facility] EOS % 2.0 % [facility] BASO % 0.4 % [facility] GRAN MAT x10^3(ANC) 6.33 1.99 - 6.95 [facility] 10*3/uL [facility] IMM GRAN x10^3 0.05 0.00 - 0.06 [facility] 10*3/uL [facility] LYMPH x10^3 1.86 1.09 - 3.23 [facility] 10*3/uL [facility] MONO x10^3 0.92 0.36 - 1.02 [facility] 10*3/uL [facility] EOS x10^3 0.19 0.06 - 0.53 [facility] 10*3/uL [facility] BASO x10^3 0.04 0.01 - 0.09 [facility] 10*3/uL [facility] Specimen Blood - VENOUS Performing Organization Address City/State/Zipcode Phone Number [facility] CLIA: [id number], [address] [place], [place] [address] COMP. METABOLIC PANEL ([id number]) (05/29/2019 8:00 AM CDT) Pathologist [facility] nature NA 139 135 - 145 mmol/L [facility] K 4.2 3.5 - 5.0 mmol/L [facility] CL 103 98 - 108 mmol/L [facility] CO2 TOTAL 26 23 - 31 mmol/L [facility] AGAP 10 2 - 16 [facility] BUN 18 7 - 23 mg/dL [facility] GLUCOSE 108 70 - 110 mg/dL [facility] CREATININE 1.04 0.60 - 1.25 [facility] mg/dL [facility] TOTAL BILI 0.5 0.1 - 1.1 mg/dL [facility] CALCIUM 9.2 8.6 - 10.6 mg/dL [facility] T PROTEIN 7.4 6.3 - 8.2 g/dL [facility] ALBUMIN 4.3 3.5 - 5.0 g/dL [facility] ALK PHOS 69 34 - 122 U/L [facility] ALTv 15 5 - 50 U/L [facility] AST(SGOT) 27 13 - 40 U/L [facility] eGFR Calculation 73.1 mL/min/1.73m2 [facility] (Non-) [facility] LAB[facility] Y eGFR Calculation 88.6 mL/min/1.73m2 [facility] () [facility] Specimen Blood - VENOUS Narrative Performed At Association of Glomerular Filtration Rate (GFR) [facility] and Staging of Kidney Disease* + + +- + | GFR (mL/min/1.73 m2) | With Kidney Damage | Without Kidney Damage + + +- + | >90 | Stage one | Normal + + +- + | 60-89 | Stage two | Decreased GFR + + +- + | 30-59 | Stage three | Stage three + + +- + | 15-29 | Stage four | Stage four + + +- + | <15 (or dialysis) | Stage five | Stage five + + +- + *Each stage assumes the associated GFR level has been in effect for at least three months. Stages 1 to 5, with or without kidney disease, indicate chronic kidney disease. Notes: Determination of stages one and two (with eGFR >59mL/min/1.73 m2) requires estimation of kidney damage for at least three months as defined by structural or functional abnormalities of the kidney, manifested by either: Pathological abnormalities or Markers of kidney damage (including abnormalities in the composition of the blood or urine or abnormalities in imaging tests). Performing Organization Address City/State/Zipcode Phone Number [facility] CLIA: [id number], [address] [place], [place] [address] documented in this encounter Visit Diagnoses Diagnosis Gross hematuria - Primary Right ureteral stone Calculus of ureter documented in this encounter Insurance Payer Benefit Plan Subscriber ID Effective Dates Phone Address Type / Group [facility] [id number] 2016-Nancy [phone] [address] PPO/POS [place] [employer] t 7 [id number] [place] [address] documented as of this encounter
--- OUTSIDE RECORDS SUMMARY | 2019-08-19 13:19 | XMS REPORT | Summary of Care ---
:1960 Author Organization [facility] - Health Address [address] [place] [address] Care Team Providers Name Role Phone MatildeFreddie Froy Primary Care Provider Reason for Visit Reason Comments LAB WORK Auth/Cert Status Reason Specialty Diagnoses / Procedures Referred By Tobin golden Referred To Contact Phlebotomy Diagnoses Dysuria - Adc Pob Lab Draw Procedures URINALYSIS Professional Office Building [address] [place] [address] , [address] [place] [address] Phone: Fax: Encounter Details Date Type Department Care Team Description 06/14/2019 Casing Man Visit [facility] Health Professional Amilcar Landry i, MD [address] [place] [address]. [place] [address] Dysuria Office Building Pob, Adc Lab Main Phlebotomy Lab Professional Office Building [address] [place] [address] , [address] [place] [address] Allergies No Known Allergiesdocumented as of this encounter (statuses as of 06/14/2019) Medications Medication Sig Dispensed Refills Start Date [...] 0 Ac tive chewable tablet mouth daily. oxybutynin chloride 5 Take 1 tablet by 30 tablet 0 06/13/2019 Active mg tabletIndications: mouth 3 (three) Right ureteral stone times daily. For bladder spasms or stent pain. tamsulosin 0.4 mg 24 Take 1 capsule by 30 capsule 0 06/13/2019 Active hr mouth daily. capsuleIndications: Right ureteral stone documented as of this encounter (statuses as of 06/14/2019) Active Problems Problem Noted Date Morbid obesity with body mass index of 50 or higher Right ureteral stone 05/17/2019 Overview: Added automatically from request for evan vazquez [id number] documented as of this encounter (statuses as of 06/14/2019) Social History Tobacco Use Types Packs/Day Years [...] filedocumented in this encounter Plan of Treatment Health Maintenance Due Date Last Done Comments [...] of this encounter Implants Implanted Type Area Job Setter Honing Device Shelf Model / Identifier Expiration Date Ser ial / Lot Stent Ureteral Percuflex Plus 6x24 [employer] # [id number] [[id number] [employer] [id number] 20 / Implanted: Qty: 1 on 05/23/2019 by Amilcar Acosta MD at [facility] 0 / 0 documented as of this encounter Results Not on filedocumented in this encounter Visit Diagnoses Diagnosis Dysuria documented in this encounter Insurance Payer Benefit Plan Subscriber ID Effective Dates Phone Address Type / Group [facility] [id number] 2016-Nancy [phone] [address] PPO/POS [facility] 7 [id number] [place] [address] documented as of this encounter
--- OUTSIDE RECORDS SUMMARY | 2019-08-19 13:19 | XMS REPORT | Summary of Care ---
:1960 Author Organization [facility] Address [address] [place] [address] Care Team Providers Name Role Phone Freddie Clayton Primary Care Provider Reason for Visit Reason Comments Establish Care (Routine) Status Reason Specialty Diagnoses / Referred By Referred To Procedures Contact Contact Authorized URO-UROLOGY / Diagnoses Calculus of kidney Hematuria, unspecified Freddie Clayton Laith, Urology Procedures CONSULT UROLOGY NEW VISIT (FIRST TIME) [address] [place] [address], [id number] [place] [address] Phone: Encounter Details Date Type Department Care Team Description 06/13/2019 Telemedicine Visit [facility] Laurel Castillo MD Dysuria (Primary Dx); Urology- [address] Right ureteral stone [address] [facility] [place] [place] [address] [address] [place], [place] [phone] [address] [phone] Allergies No Known Allergiesdocumented as of this encounter (statuses as of 06/13/2019) Medications Medication Sig Dispensed Refills Start Date [...] Ac tive chewable tablet mouth daily. oxybutynin Take 1 tablet 30 tablet 0 06/13/2019 Acti ve chloride 5 mg by mouth 3 tabletIndication (three) times s: Right daily. For ureteral stone bladder spasms or stent pain. tamsulosin 0.4 Take 1 30 capsule 0 06/13/2019 Act anderson mg 24 hr capsule by capsuleIndicatio mouth daily. ns: Right ureteral stone tamsulosin 0.4 Take 1 30 capsule 0 05/23/2019 Dis continued mg 24 hr capsule by 0 (Reorder) capsuleIndicatio mouth daily. ns: Right ureteral stone oxybutynin Take 1 tablet 30 tablet 0 05/29/2019 Disc ontinued chloride 5 mg by mouth 3 0 (Reor ravi) tabletIndication (three) times s: Right daily. For ureteral stone bladder spasms or stent pain. documented as of this encounter (statuses as of 06/13/2019) Active Problems Problem Noted Date Morbid obesity with body mass index of 50 or higher Right ureteral stone 05/17/2019 Overview: Added automatically from request for evan vazquez [id number] documented as of this encounter (statuses as of 06/13/2019) Social History Tobacco Use Types Packs/Day Years [...] Signs Not on filedocumented in this encounter Progress Notes Amilcar Castillo MD - 06/13/2019 3:30 PM CDT TELEHEALTH NOTE Verbal consent obtained from Patient: Keo Richards for telehealth services provided below. Communication with patient was conducted via Telephone. Location of Patient: Home Location of Provider: Clinic Referred by: Established Chief Complaint: I was asked to give my opinion regarding Keo Richards is a 58 year old male who presents with right ureteral stone History of Present Illness 06/13/2019: Keo Richards is a 58 year old male s/p attempted Right USM (unable to complete) and Right ureteral stent on 05/23/2019, reported ongoing hematuria and stent related symptoms ( feeling miserable ) and keen to have a definitive procedure soon. He would like to have the surgery next [id number]/05/2020 pending COVID-19 outbreak. Recent dysuria , with no fever,dey cough or headache. History of Present Illness 05/16/2019: Keo Richards is a 58 year old male here today for cystoscopy and TRUS. No further right flank pain , fever, chills/rigors. No dysuria or hematuria. He was cleared by his trial court justice Dr Sinclair, as low risk and Eliquis can be stopped as required to facilitate urological intervention. International Prostate Symptom Score (I-PSS) In the past month: (Not at all - 0, Less than 1 in 5 times - 1, Less than half the time - 2, About half the time - 3, More than half the time - 4, Almost always - 5) 1. Incomplete Emptyin 2. Frequency: 4 3. Intermittency: 4 4. Urgency: 4 5. Weak Stream: 4 6. Strainin 7. Nocturia: 3 TOTAL: 25 Bother score: 5 SASKIA: 0 05/03/2019:Keo Richards58 year oldmale for evaluation of right ureteral stone. He has seen blood in his urine 4 times in the last 6 weeks. He presented to PCP and was sent for CT scan. CT scan showed a 12mm oblong stone in right proximal ureter with mild hydronephrosis. He states "I don't have pain that I would associate with passing a stone". He has a history of stones. He had an ESWL and USM approximately 16 years ago. He passed a stone last year. He also has a weak stream, frequency, urgency, nocturia 3-4 times a night and no sensation of urine flow. He was taking Flomax but stopped one year ago when he started Eliquis for Afib. No family history of prostate cancer. Histories Past Medical History: Diagnosis Date Atrial fibrillation Cancer skin - BCC HTN (hypertension) Kidney stone Past Surgical History: Procedure Laterality Date BACK SURGERY 2017 EXTRACORPOREAL SHOCKWAVE LITHOTRIPSY 16 years ago PACEMAKERS INSERTION TONSILLECTOMY URETEROSCOPIC STONE MANIPULATION 16 years ago URETEROSCOPIC STONE MANIPULATION Right 05/23/2019 Surgeon: Amilcar Castillo MD; Location: [facility] Family History Problem Relation Age of Onset Cancer Mother Breast Cancer Father lung Social History Socioeconomic History Marital status: Spouse name: Not on file Number of children: Not on file Years of education: Not on file Highest education level: Not on file Occupational History Not on file Social Needs Financial resource strain: Not on file Food insecurity: Worry: Not on file Inability: Not on file Transportation needs: Medical: Not on file Non-medical: Not on file Tobacco Use Smoking status: Former Smoker Smokeless tobacco: Former User Substance and Sexual Activity Alcohol use: Not Currently Drug use: Not on file Sexual activity: Not on file Lifestyle Physical activity: Days per week: Not on file Minutes per session: Not on file Stress: Not on file Relationships Social connections: Talks on phone: Not on file Gets together: Not on file Attends caodaism service: Not on file Active member of club or organization: Not on file Attends meetings of clubs or organizations: Not on file Relationship status: Not on file Intimate partner violence: Fear of current or ex partner: Not on file Emotionally abused: Not on file Physically abused: Not on file Forced sexual activity: Not on file Other Topics Concern Not on file Social History Narrative Not on file Allergies No Known Allergies Review of Systems Constitutional: negative Eyes: negative Ears, nose, mouth, throat: negative Cardiovascular: negative Respiratory: negative Gastrointestinal: negative Genitourinary: (+) per HPI Musculoskeletal: negative Integumentary: negative Neurological: negative Psychiatric: negative Endocrine: negative Hematologic/Lymphatic: negative Allergic/Immunologic: negative, allergies listed above Physical Examination There were no vitals taken for this visit. Laboratory Per HPI Radiology No final results containing an impression from the past 30 days were found. Assessment Keo Richards is a 58 year old male with PMHx of HTN, Afib on Eliquis, ELZBIETA not on CPAP, obesity andno hx of DM: Gross hematuria: could be related to BPH or stone, will need CTU post Right USM. Obstructing 12 mm Right ureteral stone, s/p Right ureteral stent 05/23/2019, ongoing hematuria and stent related symptoms. I discussed with the patients options For proximal Right ureteral 12 mm stone, 900 HU, 16 SSD: 1. Conservative management: stones will continue to grow, increasing risk causing obstruction, pain,loss of kidney function, loss of kidney. 2. ESWL: least invasive, still requires GA, may need more than one treatment session to address stone 3. USM: invasive, most likely clear the stone in one session, risk of complications mainly damage toureter ( perforation, avulsion, need to reimplant/reconstruct the ureter). pain, bleeding, infection, injury to surrounding structures, need for prolonged stent, failure to access ureter/kidney, need for percutaneous nephrostomy tube, failure to remove all stone, need for additional procedures 4.Right PCNL: Most invasive, highest chance of clearing stones in one session, most risk of complications when compared to other options, pain, bleeding, infection, injury to surrounding structures( bowel, lungs, large blood vessels,liver), arteriovenous fistula requiring of urine at surgical site, failure to remove all stone, injury or damage to kidney leading to loss of kidney, need for additional procedures embolization, need for prolonged nephrostomy tube/ureteral stent, urine obstruction,leakage Patient opted for Right USM 06/20/2019 at [facility] as per patient request BPH with LUTS: IPSS 25/ QoL: 5 C/n Flomax I explained surgical options : TURP, LASER, PUL RTC for Uroflow and PVR Would like to persevere with medical therapy for the time being , may consider other options after treating ureteral stone Plan - Right USM [facility] OR 06/20/2019 - Ucx pre op - Already had Anesthesia assessment pre op And Cardiac clearance scanned into [facility] - C/n Eliquis - CTU post USM Amilcar Castillo MD documented in this encounter Plan of Treatment Name Type Priority Associated Diagnoses Order S chedule URINE CULTURE LAB Routine Dysuria Expected: 05/19, Expires: 06/12/2020 Health Maintenance Due Date Last Done Comments [...] of this encounter Implants Implanted Type Area Mat Machine Tender Device Shelf Model / Identifier Expiration Date Ser ial / Lot Stent Ureteral Percuflex Plus 6x24 In [employer] # [id number] [[id number]] [employer] [id number] 20 / Implanted: Qty: 1 on 05/23/2019 by Amilcar Acosta MD at [facility] 0 / 0 documented as of this encounter Results Not on filedocumented in this encounter Visit Diagnoses Diagnosis Dysuria - Primary Right ureteral stone Calculus of ureter documented in this encounter Insurance Payer Benefit Plan Subscriber ID Effective Dates Phone Address Type / Group [facility] [id number] 2016-Nancy [phone] [address] PPO/POS [place] SELECT t [id number] [place] [address] documented as of this encounter
--- OUTSIDE RECORDS SUMMARY | 2019-08-19 13:19 | XMS REPORT | Summary of Care ---
:1960 Author Organization [facility] - Health Address [address] [place] [address] Care Team Providers Name Role Phone Freddie Clayton Primary Care Provider Encounter Details Date Type Department Care Team Description 06/14/2019 Orders Only [facility] Doctor Unassigned, No [address] [place] [address] [address] [place] [address] Allergies No Known Allergiesdocumented as of this [...] Added automatically from request for evan vazquez [id number] documented as of this encounter (statuses as [...] Treatment Date Type Specialty Care Team Description 06/14/2019 Self Sealing Fuel Tank Repairer Visit Phlebotomy Amilcar Castillo MD [address] [place] [id number] Pob, Jose Miguel Lab Main Health Maintenance Due Date Last Done Comments [...] of this encounter Implants Implanted Type Area Dairy Husbandry Teacher Device Shelf Model / Identifier Expiration Date Ser ial / Lot Stent Ureteral Percuflex Plus 6x24 [place] [employer] # [id number] [[id number]] [employer] [employer] [id number] 20 / Implanted: Qty: 1 on 05/23/2019 by Amilcar Acosta MD at [facility] 0 / 0 documented as of this encounter Procedures Procedure Name Priority Date/Time Associated Diagnosis Comme nts ASSIGNMENT OF BENEFITS Routine 06/14/2019 9:59 AM CDT documented in this encounter Results Not on filedocumented in this encounter Insurance Payer Benefit Plan Subscriber ID Effective Dates Phone Address Type / Group [facility] Feedback [id number] 2016-Nancy [phone] [address] PPO/POS [place] SELECT t [id number] [place] [address] documented as of this encounter
--- OUTSIDE RECORDS SUMMARY | 2019-08-19 13:19 | XMS REPORT | Summary of Care ---
:1960 Author Organization 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 [place] [address] [phone] Allergies No Known Allergiesdocumented as of this [...] Added automatically from request for evan vazquez [id number] documented as of this encounter (statuses as [...] of this encounter Implants Implanted Type Area Metal Spinner Device Shelf Model / Identifier Expiration Date Ser ial / Lot Stent Ureteral Percuflex Plus 6x24 [employer] # [id number] [[id number]] [employer] [id number] 20 / Implanted: Qty: 1 on 05/23/2019 by Amilcar Acosta MD at [facility] 0 / 0 documented as of this encounter Results Not on filedocumented in this encounter Visit Diagnoses Diagnosis Right ureteral stone - Primary Calculus of ureter documented in this encounter Insurance Payer Benefit Plan Subscriber ID Effective Dates Phone Address Type / Group [facility] [employer] [id number] 2016-Nancy [phone] [address] PPO/POS [place] SELECT t 7 [id number] [place] [address] documented as of this encounter
--- OUTSIDE RECORDS SUMMARY | 2019-08-19 13:20 | XMS REPORT | Summary of Care ---
:1960 Author Organization [facility] - Health Address [address] [place] [address] Care Team Providers Name Role Phone Freddie Clayton Primary Care Provider Reason for Visit Auth/Cert Status Reason Specialty Diagnoses / Procedures Referred By Tobin golden Referred To Contact Surgery Diagnoses Calculus of ureter Dysuria Right ureteral stone [N20.1] R30.0 (ICD-10-CM) - Dysuria Adc Pre/Pacu/Post Procedures IA CYSTO/URETERO/PYELOSCOPY, CALCULUS [place] URETEROSCOPIC STONE MANIPULATION [id number] - [place] CYSTO/URETERO/PYELOSCOPY, CALCULUS [place] [address] [facility] [address] [place] [address] Phone: Fax: Encounter Details Date Type Department Care Team Description 06/20/2019 Anesthesia [facility] Lise Gonzales MD [address] [place] [address] [id number] [place] [address] [phone] [facility] Sharif Cosme CRNA [address] [place] [phone] [place] [address] [place] [address] Allergies No Known Allergiesdocumented as of this encounter (statuses as of 06/20/2019) Medications Medication Sig Dispensed Refills Start Date End Date Status metoprolol Take 12.5 mg 0 Active tartrate [...] 0 Ac tive chewable tablet mouth daily. amiodarone 200 Take 200 mg 0 05/16/2019 Ac tive mg tablet by mouth daily. oxybutynin Take 1 tablet 30 tablet 0 06/13/2019 Disc ontinued chloride 5 mg by mouth 3 0 (Alte rnate tabletIndication (three) times therapy) s: Right daily. For ureteral stone bladder spasms or stent pain. tamsulosin 0.4 Take 1 30 capsule 0 06/13/2019 Dis continued mg 24 hr capsule by 0 (Alternat e capsuleIndicatio mouth daily. therapy) ns: Right ureteral stone documented as of this encounter (statuses as of 06/20/2019) Active Problems Problem Noted Date Morbid obesity with body mass index of 50 or higher Right ureteral stone 05/17/2019 Overview: Added automatically from request for evan vazquez [id number] documented as of this encounter (statuses as of 06/20/2019) Social History Tobacco Use Types Packs/Day Years [...] Sign Reading Time Taken Comments Blood Pressure - - Pulse - - Temperature - - Respiratory Rate 43 06/20/2019 10:49 AM CDT Oxygen Saturation - - Inhaled Oxygen Concentration - - Weight - - Height - - Body Mass Index - - documented in this encounter Plan of Treatment Health [...] of this encounter Implants Implanted Type Area Baker Test Device Shelf Model / Identifier Expiration Serial / Lot Date Stent Ureteral Percuflex Plus 6x24 [place] [employer] # [id number] [[id number]] [place] [id number] / Implanted: Qty: 1 on 05/23/2019 by Amilcar Acosta MD at [facility] Scientific 0 / 0 Percuflex Plus [id number] Right: [place] 023 [id number] / Implanted: Qty: 1 on 06/20/2019 by Amilcar Acosta MD at [facility] Scientific [id number] documented as of this encounter Procedures Procedure Name Priority Date/Time Associated Diagnosis Comme nts INTUBATION Routine 06/20/2019 9:51 AM Results for this CDT procedure are i n the results section . documented in this encounter Results Intubation (06/20/2019 9:51 AM CDT) Narrative Performed At Nirav De Leon CRNA 06/20/2019 9:51 AM Intubation Airway not difficult General Information and Staff Patient location during procedure: OR Resident/VACCINES SOLUTIONS SPECIALIST: Sharif Cosme CRNA Performed: resident/VACCINES SOLUTIONS SPECIALIST Indications and Patient Condition Indications for airway management: anest hesia Spontaneous Ventilation: absent Sedation level: deep Preoxygenated: yes Patient position: sniffing Mask difficulty assessment: 0 - not atte mpted Final Airway Details Final airway type: supraglottic airway Successful airway: classic Size 4 Number of attempts at approach: 1 Additional Comments Airway dry intact documented in this encounter Administered Medications Medication Order MAR Action Action Date Dose Rate Site ePHEDrine 25 mg/5 mL (5 mg/mL) Given 06/20/2019 10:25 AM CDT 5 m g syringe ONCE INTRA PROCEDURE, Starting Kae 06/20/19 at 0955, Until Kae 06/20/19 at 1549, Routine, Intra-op Given 06/20/2019 10:12 AM CDT 10 mg Given 06/20/2019 9:59 AM CDT 5 mg FENTanyl PF (SUBLIMAZE (PF)) injection Given 06/20/2019 12:10 PM CDT 25 mcg Intravenous, ONCE INTRA PROCEDURE, Starting Kae 06/20/19 at 0945, Until Kae 06/20/19 at 1549, Routine, Intra-op Given 06/20/2019 11:52 AM CDT 25 mcg Given 06/20/2019 11:15 AM CDT 25 mcg lactated ringers IV infusion New Bag 06/20/2019 9:35 AM CDT IV Infusion, CONTINUOUS PRN, Starting Kae 06/20/19 at 0935, Until Kae 06/20/19 at 1549, Routine, Intra-op lidocaine 1% (XYLOCAINE) 100 mg/10 mL (1 %) Given 06/20/2019 9: 40 AM CDT 5 mL injection ONCE INTRA PROCEDURE, Starting Kae 06/20/19 at 0940, Until Kae 06/20/19 at 1549, Routine, Intra-op midazolam (VERSED) injection Given 06/20/2019 9:35 AM CDT 2 mg IV Push, ONCE INTRA PROCEDURE, Starting Kae 06/20/19 at 0935, Until Kae 06/20/19 at 1549, Routine, Intra-op phenylephrine (VAZCULEP) injection Given 06/20/2019 11:55 AM CDT 100 mcg ONCE INTRA PROCEDURE, Starting Kae 06/20/19 at 0949, Until Kae 06/20/19 at 1549, Routine, Intra-op Given 06/20/2019 10:53 AM CDT 100 mcg Given 06/20/2019 10:45 AM CDT 100 mcg propofol IV infusion Given 06/20/2019 9:40 AM CDT 200 mg Intravenous, ONCE INTRA PROCEDURE, Starting Kae 06/20/19 at 0940, Until Kae 06/20/19 at 1549, Routine, Intra-op documented in this encounter Insurance Payer Benefit Plan Subscriber ID Effective Dates Phone Address Type / Group [facility] [id number] 2016-Nancy [phone] [address] PPO/POS [place] [employer] t 7 [id number] [place] [address] documented as of this encounter
--- OUTSIDE RECORDS SUMMARY | 2019-08-19 13:20 | XMS REPORT | Summary of Care ---
:1960 Author Organization [facility] Address [address] [place] [address] Care Team Providers Name Role Phone ClaytonFreddie Primary Care Provider Reason for Referral Other (Routine) Status Reason Specialty Diagnoses / Referred By Contact Refe rred To Procedures Contact New Request Diagnoses Right ureteral stone Mary Loyola MD Alzweri, Laith, MD Procedures Discharge Follow-up: Specialty Provider MARY LOYOLA; [address] [place] [phone] Phone: Phone: Fax: (Routine) Status Reason Specialty Diagnoses / Referred By Referred To Procedures Contact Contact Authorized Diagnostic Diagnoses Right ureteral stone Mary Loyola, Radiology Procedures FL TIME OR (NON-REPORTABLE) [address] [place] [phone] Reason for Visit Auth/Cert Status Reason Specialty Diagnoses / Procedures Referred By C ontact Referred To Contact Surgery Diagnoses Calculus of ureter Dysuria Right ureteral stone [N20.1] R30.0 (ICD-10-CM) - Dysuria Adc Pre/Pacu/Post Procedures [place] CYSTO/URETERO/PYELOSCOPY, [place]ULUS [place] URETEROSCOPIC STONE MANIPULATION [address] - [place] CYSTO/URETERO/PYELOSCOPY, CALCULUS [place] [address] [place] [address] Phone: Fax: Encounter Details Date Type Department Care Team Description 06/20/2019 Hospital Encounter [facility] Laurel Warner MD Right ureteral [address] [place], [place] [phone] Allergies No Known Allergiesdocumented as of this [...] oxybutynin Take 1 tablet 30 tablet 0 06/20/2019 Acti ve chloride 5 mg by mouth 3 tabletIndication (three) times s: Right daily. For ureteral stone bladder spasms or stent pain. tamsulosin 0.4 Take 1 21 capsule 0 06/20/2019 Act anderson mg 24 hr capsule by capsuleIndicatio mouth daily. ns: Right ureteral stone amiodarone 100 Take 200 mg 0 Dis continued mg tablet by mouth 0 daily. oxybutynin Take 1 tablet 30 tablet [...] Added automatically from request for evan vazquez [id number] documented as of this encounter (statuses as [...] Sign Reading Time Taken Comments Blood Pressure 127/86 06/20/2019 2:26 PM CDT Pulse 63 06/20/2019 2:15 PM CDT Temperature 36.3 C (97.3 F) 06/20/2019 1:55 PM CDT Respiratory Rate 16 06/20/2019 1:55 PM CDT Oxygen Saturation 100% 06/20/2019 2:15 PM CDT Inhaled Oxygen Concentration - - Weight 145.2 kg (320 lb) 06/19/2019 8:00 AM CDT Height 182.9 cm (6') 06/19/2019 8:00 AM CDT Body Mass Index 43.4 06/19/2019 8:00 AM CDT documented in this encounter Discharge Summaries Mary Loyola MD - 06/20/2019 12:51 PM CDT Date of Service: 06/20/2019 ADMIT DATE: 06/20/2019 DISCHARGE DATE: 06/20/2019 ATTENDING MD: Mary Loyola MD PCP: Freddie Clayton Disposition: Home Condition: Good Mode to Transport: Car Transient Medical Bed: No MRIS (Medical Release Intensive Supervision) Complete: No Activity: As tolerated Diet: Regular Principal Diagnosis: (main reason for admissions after evaluation): Obstructing 12 mmRight ureteral stone, s/p Right ureteral stent 05/23/2019, ongoing hematuria and stent related symptoms. proximalRightureteral 12 mmstone, 900HU,16SSD Procedures: (operations, radiologic, cardiac, bedside procedures while hospitalized) URETEROSCOPIC STONE MANIPULATION [[id number] (Type: Custom)] FLOURO <1 HR, NON-INTERPRET INTERVENTIONAL [[id number] (Type: Custom)] Pertinent Labs: (any lab that impacted medical decision during hospitalization) Hospital Course: Keo Richards is a 58 year old male with above diagnosis status post above procedures. Patient tolerated the uncomplicated procedure well and medically stable to discharge back home. Discharge Orders Wound Care Order Comments: WOUND CARE INSTRUCTIONS Routine Regular Diet; Texture: Regular Texture Regular Diabetic: No Discharge Activity: As Tolerated Discharge Activity: As Tolerated Discharge Follow-up: Specialty Provider MARY LOYOLA; 1 Week Order Comments: Cysto and stent removal To Provider: MARY LOYOLA [[id number]] Patient's Preferred Location: [place] Discharge Disposition: HOME, ([facility]) When (Patients with risk for unplanned readmission score over 16 or those noted as Hospital Dependent should follow up within 7 days with PCP or primary DX specialist): 1 Week Risk of Unplanned Readmission:( Score greater than 16 indicates high risk) 7 Discharge Instructions Order Comments: May need 24 hr urine supersaturation study Stone diet information handed to the patient TYLENOL , Tamsulosin and Ditropan Restart Eliquis On Monday06/24/2019 Return to Work Monday06/24/2019 RTC 1 weekADC cystoscopy removal of stent Renal US 3 months Discharge Medications: Medication List START taking these medications oxybutynin chloride 5 mg tablet Commonly known as: DITROPAN Take 1 tablet by mouth 3 (three) times daily. For bladder spasms or stent pain. tamsulosin 0.4 mg 24 hr capsule Commonly known as: FLOMAX Take 1 capsule by mouth daily. ASK your doctor about these medications amiodarone 200 mg tablet Commonly known as: PACERONE apixaban 5 mg tablet Commonly known as: ELIQUIS aspirin 81 mg chewable tablet furosemide 40 mg tablet Commonly known as: LASIX lisinopril 10 mg tablet Commonly known as: PRINIVIL,ZESTRIL metoprolol tartrate 25 mg tablet Commonly known as: LOPRESSOR VITAMIN D3 50 mcg (2,000 unit) capsule Generic drug: Cholecalciferol (Vitamin D3) Where to Get Your Medications These medications were sent to [facility] [address] [place] [address], [place] - [address] [facility] [address] oxybutynin chloride 5 mg tablet tamsulosin 0.4 mg 24 hr capsule Follow-Up RTC 1 weekADC cystoscopy removal of stent Mary Loyola MD Urology Faculty documented in this encounter Discharge Instructions InstructionsGriselda Joseph RN - 06/20/2019 Patient Discharge Instructions Discharge date: 06/20/2019 Procedure(s): Procedure(s): URETEROSCOPIC STONE MANIPULATION Discharge Orders \[id number]\\[id number]\ Order Comments: WOUND CARE INSTRUCTIONS Routine Regular Diet; Texture: Regular Texture Regular Diabetic: No Discharge Activity: As Tolerated Discharge Activity: As Tolerated Discharge Follow-up: Specialty Provider MARY LOYOLA; 1 Week Order Comments: Cysto and stent removal To Provider: MARY LOYOLA [[id number]] Patient's Preferred Location: [place] Discharge Disposition: HOME, ([facility]) When (Patients with risk for unplanned readmission score over 16 or those noted as Hospital Dependent should follow up within 7 days with PCP or primary DX specialist): 1 Week Risk of Unplanned Readmission:( Score greater than 16 indicates high risk) 7 Discharge Instructions Order Comments: May need 24 hr urine supersaturation study Stone diet information handed to the patient TYLENOL , Tamsulosin and Ditropan Restart Eliquis On Monday06/24/2019 Return to Work Monday06/24/2019 RTC 1 weekADC cystoscopy removal of stent Renal US 3 months Follow instructions as indicated below: 1. The [...] hours while awake to avoid respiratory complications. 4. Lifting: No lifting over two pounds until after stent is removed and cleared by Dr. Loyola. 5. Weight: In general, sudden weight gains or losses should be reported to your provider. Cardiac patients should weigh daily and notify their provider for a weight gain of 3 pounds per day or 5 pounds per week. 6. Tobacco Avoidance: Follow recommendations below 7. Because the medications used could procedure some [...] 24 hours the nausea should be gone. 8. You may experience some pain and your physician will advise you on what to take for discomfort. This should be taken as directed. If the pain is not relieved, contact your physician. You may alsohave a sore throat from the airway that was in place. You may uses lozenges, throat spray (such as C hloraseptic), or warm salt water gargles for symptomatic relief. 9. If you feel warm, take your temperature. If it is 101 degrees or above call your physician. 10. If you are unable to urinate within five hours after your procedure, call your physician. 11. The type of surgery performed will determine how much bleeding (if any) to expect. Normally, some spotting might occur. If your dressing pad becomes saturated, notify your physician. Elevate surgical site, if applicable, to reduced swelling and pain. 12. Wound/dressing care: shower as normal Tips on preventing a surgical site infection.. [...] ? General tired feeling that doesnt improve 13. Other discharge instructions: None 14. Special Instructions: May need 24 hr urine supersaturation study - call Dr. Loyola's office Stone diet information handed to the patient TYLENOL , Tamsulosin and Ditropan as prescribed Restart Eliquis On Monday06/24/2019 Return to Work Monday06/24/2019 Return to clinic in 1 weekADC cystoscopy removal of stent Renal ultrasound in 3 months Take Home Medications These are medications ordered for you by your healthcare provider. Do not take any other medications or supplements unless advised by your healthcare provider. Current Discharge Medication List START taking these medications Details oxybutynin chloride 5 mg tablet Take 1 tablet by mouth 3 (three) times daily. For bladder spasms or stent pain. Qty: 30 tablet, Refills: 0 Associated Diagnoses: Right ureteral stone tamsulosin 0.4 mg 24 hr capsule Take 1 capsule by mouth daily. Qty: 21 capsule, Refills: 0 Associated Diagnoses: Right ureteral stone CONTINUE these medications which have NOT CHANGED Details amiodarone 200 mg tablet Take 200 mg by mouth daily. aspirin 81 mg chewable tablet Take 81 mg by mouth daily. apixaban 5 mg tablet Take 5 mg by mouth 2 (two) times daily. Cholecalciferol, Vitamin D3, (VITAMIN D3) 50 mcg (2,000 unit) capsule Take by mouth. furosemide 40 mg tablet Take 40 mg by mouth 2 (two) times per week. lisinopril 10 mg tablet Take 10 mg by mouth daily. metoprolol tartrate 25 mg tablet Take 12.5 mg by mouth 2 (two) times daily. Follow-up appointments: Your follow up appointment with your surgeon has been made. Appointment Date/time: Call Dr. Singh's office to make follow up visit. For questions regarding follow-up instructions call the Organizer Hotline at or If you experience any of the following symptoms temperature >101 or constant pain greater than 9/10, please follow up with Dr. Loyola or go to ER. For worsening symptoms/changing condition/problems or questions: Non-emergency/urgent: Call the Organizer Hotline at or or Emergency: Go to the closest emergency [...] information on smoking and how to quit. [place] [employer], http://www.lungusa.org/stop-smoking/ [place] [employer], http://www.cancer.org/Healthy/StayAwayfromTobacco/index [place] Heart Association, http://www.heart.org/HEARTORG/GettingHealthy/QuitSmoking/Quit-Smoking_[facility] _001085_SubHomePage.jsp AttachmentsThe following attachments cannot be sent through Care Everywhere. Urinary Tract, Male Anatomy (Salvadorean)Kidney Stones, Treating: Ureteroscopic Stone Removal (Salvadorean)documented in this encounter Plan of Treatment Name Type Priority Associated Diagnoses Date/Ti me URINE CULTURE LAB STAT 06/20/2019 10: 18 AM CDT STONE ANALYSIS LAB STAT 06/20/2019 12 :07 PM CDT Name Type Priority Associated Diagnoses Order S chedule URINE CULTURE LAB Routine ONCE for 1 Occ urrences starting 06/20/2019 STONE ANALYSIS LAB Routine ONCE for 1 Oc currences starting 06/20/2019 Health Maintenance Due Date Last Done Comments [...] of this encounter Implants Implanted Type Area Soda Maker Device Shelf Model / Identifier Expiration Serial / Lot Date Stent Ureteral Percuflex Plus 6x24 [employer] # [id number] [[id number]] Jeremiah [id number] / Implanted: Qty: 1 on 05/23/2019 by Mary Acosta MD at [facility] Scientific 0 / 0 Percuflex Plus [id number] Right: [place] 023 [id number] / Implanted: Qty: 1 on 06/20/2019 by Mary Acosta MD at [facility] Ureter Scientific [id number] 30 / [id number] documented as of this encounter Procedures Procedure Name Priority Date/Time Associated Diagnosis Comme nts FL TIME OR Routine 06/20/2019 12:19 PM Right ureteral stone Results for this (NON-REPORTABLE) CDT procedure a re in the results section. documented in this encounter Results FL TIME OR (NON-REPORTABLE) (06/20/2019 12:19 PM CDT) Specimen Narrative Performed At These images do not require a Radiology diagnostic rep ort. PACS Performing Organization Address City/State/Zipcode Phone Number PACS documented in this encounter Visit Diagnoses Diagnosis Right ureteral stone - Primary Calculus of ureter documented in this encounter Administered Medications Medication Order MAR Action Action Date Dose Rate Site HYDROmorphone (DILAUDID) injection 0.2 m g 0.2 mg, Slow IV Push, Q5MIN PRN, 10 doses, Starting Th u 06/20/19 at 1153, Until Discontinued, Routine, Pain (scale 7-10) , PACU, Use approved by (Faculty): PACU USE -ANESTHESIA SERVICE-HYDROMORPHONE INJECTIONS lactated ringers IV infusion 1,000 mL at 100 mL/hr, 1,000 mL, IV Infusion, CON TINUOUS, Starting Kae 06/20/19 at 1200, Until Discontinued, Routine, PACU lidocaine (XYLOCAINE) 2 % jelly URO-JET Given 06/20/2019 12:28 PM CDT 10 mL PRN, Starting Kae 06/20/19 at 1228, Until Discontinued, Routine, Intra-op sodium chloride 0.9 % irrigation solutio n Given 06/20/2019 12:28 PM CDT 6 L PRN, Starting Kae 06/20/19 at 1228, Until Discontinued, Intra-op Medication Order MAR Action Action Date Dose Rate Site FENTanyl PF (SUBLIMAZE (PF)) Given 06/20/2019 1:33 PM CDT 25 mc g injection 25 mcg 25 mcg, Slow IV Push, Q5MIN PRN, 4 doses, Starting Kae 06/20/19 at 1153, Until Kae 06/20/19 at 1333, Routine, Pain (scale 4-6), PACU Given 06/20/2019 1:24 PM CDT 25 mcg Given 06/20/2019 1:08 PM CDT 25 mcg HYDROcodone-acetaminophen (NORCO 5) 5-325 Given 2019 2:05 PM CDT 1 tablet mg tablet 1 tablet 1 tablet, Oral, ONCE, 1 dose, Kae 06/20/19 at 1200, Routine, PACU lactated ringers IV infusion New Bag 06/20/2019 8:18 AM CDT 1,000 mL 20 mL/hr 1,000 mL at 20 mL/hr, 1,000 mL, IV Infusion, ONCE, 1 dose, Kae 06/20/19 at 0830, Routine, DSU Pre-op ondansetron (ZOFRAN (PF)) injection 4 mg Given 06/20/2019 12:55 PM CDT 4 mg 4 mg, Slow IV Push, PRN, 1 dose, Starting Kae 06/20/19 at 1153, Until Kae 06/20/19 at 1255, Routine, Nausea and Vomiting (N/V), PACU Given 06/20/2019 12:40 PM CDT 4 mg documented in this encounter Insurance Payer Benefit Plan Subscriber ID Effective Dates Phone Address Type / Group [facility] [id number] 2016-Nacny [phone] [address] PPO/POS [place] SELECT t 7 [id number] [place] [address] documented as of this encounter
--- OUTSIDE RECORDS SUMMARY | 2019-08-19 13:20 | XMS REPORT | Summary of Care ---
:1960 Author Organization [facility] - Health Address [address] [place] [address] Care Team Providers Name Role Phone Matilde Freddie Mcduffie Primary Care Provider Encounter Details Date Type Department Care Team Description 06/20/2019 Orders Only [facility] Doctor Unassigned, No [address] [facility] [place] [address] [address] [place] [address] Allergies No Known Allergiesdocumented as of this encounter (statuses as of 06/20/2019) Medications Medication Sig Dispensed Refills Start Date End Date Status metoprolol tartrate Take 12.5 mg by 0 [...] hr mouth daily. capsuleIndications: Right ureteral stone amiodarone 200 mg Take 200 mg by 0 05/16/2019 Active tablet mouth daily. documented as of this encounter (statuses as of 06/20/2019) Active Problems Problem Noted Date Morbid obesity with body mass index of 50 or higher Right ureteral stone 05/17/2019 Overview: Added automatically from request for evan vazquez [id number] documented as of this encounter (statuses as [...] of this encounter Implants Implanted Type Area Engineering Coordinator Device Shelf Model / Identifier Expiration Date Ser ial / Lot Stent Ureteral Percuflex Plus 6x24 [place] [employer] # [id number] [[id number]] [place] [employer] [id number] / Implanted: Qty: 1 on 05/23/2019 by Amilcar Acosta MD at [facility] 0 / 0 documented as of this encounter Procedures Procedure Name Priority Date/Time Associated Diagnosis Comme nts ASSIGNMENT OF BENEFITS Routine 06/20/2019 7:34 AM CDT documented in this encounter Results Not on filedocumented in this encounter Insurance Payer Benefit Plan Subscriber ID Effective Dates Phone Address Type / Group [employer] [place] [id number] 2016-Nancy [phone] [address] PPO/POS [place] SELECT t 7 [id number] [place] [address] documented as of this encounter
--- OUTSIDE RECORDS SUMMARY | 2019-08-19 13:20 | XMS REPORT | Summary of Care ---
:1960 Author Organization [facility] - Health Address [address] [place] [address] Care Team Providers Name Role Phone Freddie Clayton Primary Care Provider Reason for Visit Auth/Cert Status Reason Specialty Diagnoses / Procedures Referred By Tobin golden Referred To Contact Surgery Diagnoses Calculus of ureter Dysuria Right ureteral stone [N20.1] R30.0 (ICD-10-CM) - Dysuria Adc Pre/Pacu/Post Procedures [place] CYSTO/URETERO/PYELOSCOPY, CALCULUS [place] URETEROSCOPIC STONE MANIPULATION [address] - [place] CYSTO/URETERO/PYELOSCOPY, CALCULUS [place] [address] [place], [place] [address] Phone: Fax: Encounter Details Date Type Department Care Team Description 06/20/2019 Anesthesia [facility] Lise Gonzales MD [address] [place] [address] [id number] [place] [address] [phone] [facility] Sharif Cosme CRNA [address] [place] [phone] [place] [address] [place] [address] Allergies No Known Allergiesdocumented as [...] Added automatically from request for evan vazquez [id number] documented as of this encounter (statuses as [...] of this encounter Implants Implanted Type Area Director Prospect Device Shelf Model / Identifier Expiration Serial / Lot Date Stent Ureteral Percuflex Plus 6x24 [place] [employer] # [id number] [[id number]] [place] [id number] / Implanted: Qty: 1 on 05/23/2019 by Amilcar Acosta MD at [facility] Scientific 0 / 0 Percuflex Plus [id number] Right: [place] 023 [id number] / Implanted: Qty: 1 on 06/20/2019 by Amilcar Acosta MD at [facility] Scientific [id number] documented as of this encounter Procedures Procedure [...] and Staff Patient location during procedure: OR Resident/CONTRACTOR FIELD HAULING: Sharif Cosme CRNA Performed: resident/CONTRACTOR FIELD HAULING Indications and Patient Condition Indications for airway [...] Effective Dates Phone Address Type / Group [facility] [id number] 2016-Nancy [phone] [address] PPO/POS [place] [employer] t 7 [id number] [place] [address] documented as of this encounter
--- OUTSIDE RECORDS SUMMARY | 2019-08-19 13:21 | XMS REPORT | Summary of Care ---
:1960 Author Organization [address] [address] Care Team Providers Name Role Phone Freddie Clayton Primary Care Provider Reason for Visit Reason Comments Results Encounter Details Date Type Department Care Team Description 06/25/2019 Telephone [facility]- [place] Amilcar Acosta MD Results [address] [address] [place] [address] [address] [phone] [place], [place] [phone] Allergies No Known Allergiesdocumented as of this encounter (statuses as of 06/25/2019) Medications Medication Sig Dispensed Refills Start Date [...] tive chewable tablet mouth daily. amiodarone 200 mg Take 200 mg by 0 05/16/2019 Active tablet mouth daily. oxybutynin chloride 5 Take 1 tablet by 30 tablet 0 06/20/2019 Active mg tabletIndications: mouth 3 (three) Right ureteral stone times daily. For bladder spasms or stent pain. tamsulosin 0.4 mg 24 Take 1 capsule by 21 capsule 0 06/20/2019 Active hr mouth daily. capsuleIndications: Right ureteral stone documented as of this encounter (statuses as of 06/25/2019) Active Problems Problem Noted Date Morbid obesity with body mass index of 50 or higher Right ureteral stone 05/17/2019 Overview: Added automatically from request for evan vazquez [id number] documented as of this encounter (statuses as of 06/25/2019) Social History Tobacco Use Types Packs/Day Years [...] Treatment Date Type Specialty Care Team Description 06/28/2019 Office Visit Urology Amilcar Castillo MD [address] [place] [address] [phone] Health Maintenance Due Date Last Done Comments [...] of this encounter Implants Implanted Type Area Family Worker Device Shelf Model / Identifier Expiration Serial / Lot Date Stent Ureteral Percuflex Plus 6x24 [place] [employer] # [id number] [[id number]] [place] [id number] / Implanted: Qty: 1 on 05/23/2019 by Amilcar Acosta MD at [facility] Scientific 0 / 0 Stent Ureteral Percuflex Plus 6x26 [place] [employer] # [id number] [[id number]] Right: [place] 04/07/2022 [id number] / Implanted: Qty: 1 on 06/20/2019 by Amilcar Acosta MD at [facility] Scientific [id number] documented as of this encounter Results Not on filedocumented in this encounter Insurance Payer Benefit Plan Subscriber ID Effective Dates Phone Address Type / Group [facility] [id number] 2016-Nancy [phone] [address] PPO/POS [facility] 7 [id number] [place] [address] documented as of this encounter
--- OUTSIDE RECORDS SUMMARY | 2019-08-19 13:21 | XMS REPORT | Summary of Care ---
:1960 Author Organization [facility] Address [address] [place] [address] Care Team Providers Name Role Phone ClaytonFreddie Primary Care Provider Reason for Visit Reason Comments Talk To Nurse Encounter Details Date Type Department Care Team Description 06/24/2019 Telephone [facility] Urology- Asiya Castillo MD Talk To Nurse [address] [place] [address] [place] [address] [address] [place] [address] [phone] Allergies No Known Allergiesdocumented as of this encounter (statuses as of 06/24/2019) Medications Medication Sig Dispensed Refills Start Date [...] as of this encounter (statuses as of 06/24/2019) Active Problems Problem Noted Date Morbid obesity with body mass index of 50 or higher Right ureteral stone 05/17/2019 Overview: Added automatically from request for evan vazquez [id number] documented as of this encounter (statuses as of 06/24/2019) Social History Tobacco Use Types Packs/Day Years [...] 06/28/2019 Office Visit Urology Amilcar Castillo MD [address] [place] [address] [phone] Health Maintenance Due Date Last Done [...] of this encounter Implants Implanted Type Area Business Systems Administrator Device Shelf Model / Identifier Expiration Serial / Lot Date Stent Ureteral Percuflex Plus 6x24 [place] [employer] # [id number] [[id number]] [place] [id number] / Implanted: Qty: 1 on 05/23/2019 by Amilcar Acosta MD at [facility] Scientific 0 / 0 Stent Ureteral Percuflex Plus 6x26 [place] [employer] # [id number] [[id number]] Right: [place] 04/07/2022 [id number] / Implanted: Qty: 1 on 06/20/2019 by Amilcar Acosta MD at [facility] Ureter Scientific [id number] documented as of this encounter Results Not on filedocumented in this encounter Insurance Payer Benefit Plan Subscriber ID Effective Dates Phone Address Type / Group [facility] [id number] 2016-Nancy [phone] [address] PPO/POS [place] SELECT t 7 [id number] [place] [address] documented as of this encounter
--- OUTSIDE RECORDS SUMMARY | 2019-08-19 13:21 | XMS REPORT | Summary of Care ---
:1960 Author Organization [facility] Address [address] [place] [address] Care Team Providers Name Role Phone Freddie Clayton Primary Care Provider Reason for Visit Reason Comments Procedure cysto stent removal (Routine) Status Reason Specialty Diagnoses / Referred By Referred To Procedures Contact Contact Authorized URO-UROLOGY / Diagnoses Calculus of kidney Hematuria, unspecified Freddie Clayton Laith, Urology Procedures CONSULT UROLOGY NEW VISIT (FIRST TIME) Froy SANDRA [address], [address] [place] [address] Phone: Encounter Details Date Type Department Care Team Description 06/28/2019 Office Visit [facility] Urology- Asiya Castillo MD Right ureteral stone (Primary Dx); [address] Dysuria; [address] [facility] [place], [place]ed [place]; Drive [address] Calculus of ureter [address] [place] [address] Allergies No Known Allergiesdocumented as of this encounter (statuses as of 06/28/2019) Medications Medication Sig Dispensed Refills Start Date [...] hr mouth daily. capsuleIndications: Right ureteral stone Hospital, Clinic, or Other Ordered Dose Route Frequency Start Date End Date Status Facility Administered Medication sulfamethoxazole-trimethopr 1 tablet Oral ONCE 06/28/2019 0 06/28/2019 Ended im (BACTRIM DS) 800-160 mg per tablet 1 tablet documented as of this encounter (statuses as of 06/28/2019) Active Problems Problem Noted Date Morbid obesity with body mass index of 50 or higher Right ureteral stone 05/17/2019 Overview: Added automatically from request for evan george [id number] documented as of this encounter (statuses as of 06/28/2019) Social History Tobacco Use Types Packs/Day Years [...] Sign Reading Time Taken Comments Blood Pressure 134/83 06/28/2019 10:40 AM CDT Pulse 60 06/28/2019 10:40 AM CDT Temperature 37.1 C (98.8 F) 06/28/2019 10:40 AM CDT Respiratory Rate 18 06/28/2019 10:40 AM CDT Oxygen Saturation 99% 06/28/2019 10:40 AM CDT Inhaled Oxygen Concentration - - Weight 142 kg (313 lb) 06/28/2019 10:40 AM CDT Height 172.7 cm (5' 8") 06/28/2019 10:40 AM CDT Body Mass Index 47.59 06/28/2019 10:40 AM CDT documented in this encounter Progress Notes Amilcar Castillo MD - 06/28/2019 11:00 AM CDT Urology Clinic Note / History and Physical Referred by: Established Chief Complaint: I was asked to give my opinion regarding Keo Richards is a 58 year old male who presents with Left ureteral st0ne History of Present Illness 06/28/2019: eKo Richards is a 58 year old male here today for stent removal. Has restated Eliquis.No recent fever, cough i 06/20/2019: Here for Right USM , no recent cough, fever, sob or loss of smell/taste Here for Right USM , recent Ucx showed no growth. Ongoing hematuria and mild flank pain. 06/13/2019: Keo Richards is a 58 year old males/p attempted Right USM (unable to complete) and Right ureteral stent on 05/23/2019, reported ongoing hematuria and stent related symptoms ( feeling miserable ) and keen to have a definitive procedure soon. He would like to have the surgery next 05/23/2019 pending COVID-19 outbreak. Recent dysuria , with no fever,dey cough or headache. History of Present Illness 05/16/2019: Keo Richards is a 58 year old malehere today for cystoscopy and TRUS. No further right flank pain , fever, chills/rigors. No dysuria or hematuria. He was cleared by his clinical therapist Dr Sinclair, as low risk and Eliquis [...] always - 5) 1. Incomplete Emptyin 2. Frequency:4 3. Intermittency:4 4. Urgency:4 5. Weak Stream:4 6. Strainin 7. Nocturia:3 TOTAL:25 Bother score:5 SASKIA: 0 05/03/2019:Keo Richards58 year oldmale for [...] for Afib. No family history of prostate cancer Histories Past Medical History: Diagnosis Date Atrial fibrillation Cancer skin - BCC HTN (hypertension) Kidney stone Past Surgical History: Procedure Laterality Date BACK SURGERY 2018 EXTRACORPOREAL SHOCKWAVE LITHOTRIPSY 16 years ago PACEMAKERS INSERTION TONSILLECTOMY URETEROSCOPIC STONE MANIPULATION 16 years ago URETEROSCOPIC STONE MANIPULATION Right 05/23/2019 Surgeon: Amilcar Castillo MD; [place] [facility] [place] Right 06/20/2019 Surgeon: Amilcar Castillo MD; [place] [facility] [place] History Problem Relation Age of Onset [...] Activity Alcohol use: Not Currently Drug use: Never Sexual activity: Not on file Lifestyle Physical activity: Days per week: Not on file Minutes per session: Not on file Stress: Not on file Relationships Social connections: Talks on phone: Not on file Gets together: Not on file Attends amish service: Not on file Active member of [...] Allergic/Immunologic: negative, allergies listed above Physical Examination Blood pressure 134/83, pulse 60, temperature 37.1 C (98.8 F), temperature source Oral, resp. rate 18, height 1.727 m (5' 8"), weight 142 kg (313 lb), SpO2 99 %. Constitutional: healthy, no acute distress Eyes: normal external eye, conjunctiva and sclera normal Ears, nose, mouth, throat: normocephalic, moist mucous membranes Cardiovascular: regular rate and rhythm Respiratory: respirations unlabored on room air Gastrointestinal: soft, non-distended, no pain Musculoskeletal: no clubbing, cyanosis or edema Skin: no rashes Neurologic: alert and oriented x3 Psychiatric: appropriate mood and affect Hematologic: no bruising Laboratory Per HPI Radiology No final results containing an impression from the past 30 days were found. Procedure Note 1. Cystourethroscopy with Ureteral Stent Removal Pre-operative diagnosis: retained ureteral stent Post-operative diagnosis: same Location of procedure: clinic procedure room Informed consent discussed with the patient, including: condition, proposed care, treatments and services, alternative forms of treatment, and risks of no treatment. Details discussed around the procedures to be used, and the risks and hazards involved, potential benefits, and side effects of the patients proposed care, treatment, and services; the likelihood of the patient achieving his or her goals; and any potential problems that might occur during recuperation. Reasonable alternative also discussed with the patients proposed care, treatment, and services. The discussion encompasses risks, benefits, and side effects related to the alternative and risks related to not receiving the proposed care, treatment, and services. The patient was identified, consent was obtained after explaining the risks, benefits and options ofthe procedure and a time out was performed. The patient was then placed in the supine position and prepped and draped in the usual sterile fashion. Cystourethroscopy was performed with a 17 Citizen [place] flexible scope. Bactrim once orally was given for pre-procedural antibiotic prophylaxis. The ureteral stent was grasped with flexible cystoscopic graspers and removed. There were no complications in this procedure. Assessment Keo Richards is a 58 year old male with: 1. S/p Left USM 06/20/2019 Obstructing 12 mmRight ureteral stone, s/p Right ureteral stent 05/23/2019, ongoing hematuria and stent related symptoms. proximalRightureteral 12 mmstone, 900HU,16SSD. Plan - 24 hr urine supersaturation - RTC 4 weeks uroflow and PVR, will need TURP/ ThuLP Amilcar Castillo MD Tory Claudio RN - 06/28/2019 11:00 AM Anusha Maurice is a 58 year old male comes to clinic independent in ambulation for follow up stent re moval. Pt comes alone . Pt in NAD w/ pain reported . Pt preferred language is Ugandan. Pt. denies fall in last 12 months. Allergies and medications reviewed and updated. documented in this encounter Plan of Treatment Date Type Specialty Care Team Description 07/26/2019 Office Visit Urology Amilcar Castillo MD [address] [place], [place] [address]d. [place] [address] [phone] Health Maintenance Due Date Last Done [...] of this encounter Implants Implanted Type Area Plan Coordinator Device Shelf Model / Identifier Expiration Serial / Lot Date Stent Ureteral Percuflex Plus 6x24 [employer] # [id number] [[id number]] [place] [id number] / Implanted: Qty: 1 on 05/23/2019 by Amilcar Acosta MD at [facility] Scientific 0 / 0 Stent Ureteral Percuflex Plus 6x26 [employer] # [id number] [[id number]] Right: [place] 04/07/2022 [id number] / Implanted: Qty: 1 on 06/20/2019 by Amilcar Acosta MD at [facility] [employer] [id number] documented as of this encounter Procedures Procedure Name Priority Date/Time Associated Comments Diagnosis POCT URINALYSIS AUTO Routine 06/28/2019 10:35 AM Right uretera l Results for this CDT stone procedure are in Dysuria the results Enlarged prostat e section. Calculus of ureter documented in this encounter Results POCT URINALYSIS, INSTRUMENT (06/28/2019 10:35 AM CDT) Pathologist Sig nature POCT U SP GRAV 1.030 (A) 1.005 - 1.025 mg/dl POCT PH U 5.5 5 - 8 mg/dl POCT U LEUK EST negative Negative - Negative POCT U NIT negative Negative - Negative POCT U PROT 300 Negative - Negative POCT U GLU negative Negative - Negative POCT U KETONE trace Negative - Negative POCT U UROBILI 1.0 0.2 - 1 mg/dl POCT U BILI small Negative - Negative POCT U BLD large Negative - Negative POCT U COLOR brown POCT U APPEAR turbid Specimen Urine - URINE, CLEAN CATCH documented in this encounter Visit Diagnoses Diagnosis Right ureteral stone - Primary Calculus of ureter Dysuria Enlarged prostate Hypertrophy of prostate without urinary obstruction and other lower urinary tract symptoms (LUTS) Calculus of ureter documented in this encounter Administered Medications Medication Order MAR Action Action Date Dose Rate Site sulfamethoxazole-trimethoprim Given 06/28/2019 10:47 AM CDT 1 ta blet (BACTRIM DS) 800-160 mg per tablet 1 tablet 1 tablet, Oral, ONCE, 1 dose, Mon06/28/19 at 1200, KELLEE, Reason for Anti-Infective: Surgical Prophylaxis, Surgical Prophylaxis: Genitourinary, Duration of therapy: within 24 hours of surgery documented in this encounter Insurance Payer Benefit Plan Subscriber ID Effective Dates Phone Address Type / Group [facility] [id number] 2016-Nancy [phone] [address] PPO/POS [place] SELECT t [id number] [place] [address] documented as of this encounter
--- OUTSIDE RECORDS SUMMARY | 2019-08-19 13:22 | XMS REPORT | Summary of Care ---
:1960 Author Organization [facility] Address [address] [place] [address] Care Team Providers Name Role Phone Freddie Clayton Primary Care Provider Reason for Visit Reason Comments Procedure cysto stent removal (Routine) Status Reason Specialty Diagnoses / Referred By Referred To Procedures Contact Contact Authorized URO-UROLOGY / Diagnoses Calculus of kidney Hematuria, unspecified Freddie Clayton Laith, Urology Procedures CONSULT UROLOGY NEW VISIT (FIRST TIME) Froy SANDRA [address], [address] [place] [address] Phone: Encounter Details Date Type Department Care Team Description 06/28/[address] [facility] Urology- Asiya Castillo MD Right ureteral stone (Primary Dx); [address] Dysuria; [address] [facility] [place], [place]larged pr [place]; Drive [address] Calculus of ureter [address] [place] [address] Allergies No Known Allergiesdocumented as [...] Added automatically from request for evan george [id number] documented as of this encounter (statuses as [...] ureteral st0ne History of Present Illness 06/28/2019: Keo Richards is a 58 year old [...] or hematuria. He was cleared by his communication instructor Dr Sinclair, as low risk and Eliquis [...] Right 05/23/2019 Surgeon: Amilcar Castillo MD; [place] [facility] [place] URETEROSCOPIC STONE MANIPULATION Right 06/20/2019 Surgeon: Amilcar Castillo MD; Location[place] [facility] [place] Family History Problem Relation Age of Onset [...] file Gets together: Not on file Attends buddhist service: Not on file Active member of [...] fashion. Cystourethroscopy was performed with a 17 Palestinian flexible scope. Bactrim once orally was given [...] Tory Claudio RN - 06/28/2019 11:00 AM LANNYTPhugo Maurice is a 58 year old male comes to clinic independent in ambulation for follow up stent re moval. Pt comes alone . Pt in NAD w/ pain reported 0. Pt preferred language is Bhutanese. Pt. denies fall in last 12 months. Allergies and medications reviewed and updated. Informed consent obtained and signed. Patient has been identified by Name and and will be undergoing a cystoscopy. Patient, procedure and site have been confirmed by the following clinicians: Dr. Castillo. Timeout performed by Monique Ragsdale RN at 1100. Patient placed on table lying supine position. Patient prepped using betadine, 10 cc of 2% lidocaine jelly injected into urethra and draped in sterile fashion. Entire procedure chaperoned by Tory Ragsdale RN. Patient tolerated procedure well and left clinic via ambulatory. Nurse time: [phone] Per order Post void residual by bladder scan = 9 ml, results reported to provider. documented in this encounter Plan of Treatment Date Type Specialty Care Team Description 07/26/2019 Office Visit Urology Amilcar Castlilo MD [address] [place] [address]. [place] [address] [phone] Health Maintenance Due Date Last Done [...] of this encounter Implants Implanted Type Area Forensic Dna Analyst Device Shelf Model / Identifier Expiration Serial / Lot Date Stent Ureteral Percuflex Plus 6x24 [employer] # [id number] [[id number]] [place] [id number] / Implanted: Qty: 1 on 05/23/2019 by Amilcar Acosta MD at [facility] 0 / 0 Stent Ureteral Percuflex Plus 6x26 [employer] # [id number] [[id number]] Right: [place] 04/07/2022 [id number] / Implanted: Qty: 1 on 06/20/2019 by Amilcar Acosta MD at [facility] [employer] [id number] documented as of this encounter Procedures Procedure [...] Effective Dates Phone Address Type / Group [facility] [id number] 2016-Nancy [phone] [address] PPO/POS [facility] [id number] [place] [address] documented as of this encounter
--- OUTSIDE RECORDS SUMMARY | 2019-08-19 13:22 | XMS REPORT | Summary of Care ---
:1960 Author Organization [facility] Address [address] [place] [address] Care Team Providers Name Role Phone Freddie Clayton Primary Care Provider Reason for Visit Reason Comments Procedure cysto stent removal (Routine) Status Reason Specialty Diagnoses / Referred By Referred To Procedures Contact Contact Authorized URO-UROLOGY / Diagnoses Calculus of kidney Hematuria, unspecified Freddie Clayton Laith, Urology Procedures CONSULT UROLOGY NEW VISIT (FIRST TIME) Froy SANDRA [address], [address] [place] [address] Phone: Encounter Details Date Type Department Care Team Description 06/28/2019 Office Visit [facility] Urology- Asiya Castillo MD Right ureteral stone (Primary Dx); [address] Dysuria; [address] [facility] [place], [place]ed pr [place]; Drive [address] Calculus of ureter [address] [place] [address] Allergies No Known Allergiesdocumented as [...] Added automatically from request for evan george [id number] documented as of this encounter (statuses as [...] or hematuria. He was cleared by his slide maker Dr Sinclair, as low risk and Eliquis [...] Right 05/23/2019 Surgeon: Amilcar Castillo MD[place] [facility] [place]IP[place] Right 06/20/2019 Surgeon: Amilcar Castillo MD; [place] [facility] [place] History Problem Relation Age of Onset [...] file Gets together: Not on file Attends mu-ism service: Not on file Active member of [...] fashion. Cystourethroscopy was performed with a 17 Mongolian flexible scope. Bactrim once orally was given [...] pain reported . Pt preferred language is Montenegrin. Pt. denies fall in last 12 months. Allergies and medications reviewed and updated. documented in this encounter Plan of Treatment Date Type Specialty Care Team Description 07/26/2019 Office Visit Urology Amilcar Castillo MD [address] [place], [place] [address]d. [place] [address] [phone] Health Maintenance Due Date Last Done [...] of this encounter Implants Implanted Type Area Bridge Maintainer Device Shelf Model / Identifier Expiration Serial / Lot Date Stent Ureteral Percuflex Plus 6x24 [employer] # [id number] [[id number]] [place] [id number] / Implanted: Qty: 1 on 05/23/2019 by Amilcar Acosta MD at [facility] Scientific 0 / 0 Stent Ureteral Percuflex Plus 6x26 [employer] [employer] # [id number] [[id number]] Right: [place] 04/07/2022 [id number] / Implanted: Qty: 1 on 06/20/2019 by Amilcar Acosta MD at [facility] [employer] [id number] documented as of this encounter Procedures Procedure [...] Effective Dates Phone Address Type / Group [facility] [id number] 2016-Nancy [phone] [address] PPO/POS [place] [employer] t [id number] [place] [address] documented as of this encounter
--- OUTSIDE RECORDS SUMMARY | 2019-08-19 13:23 | XMS REPORT | Summary of Care ---
:1960 Author Organization [facility] - [facility] Address [address] [place] [address] Care Team Providers Name Role Phone Freddie Clayton Primary Care Provider Encounter Details Date Type Department Care Team Description 06/28/2019 Orders Only [facility] Doctor Unassigned, No [address] [facility] [place] [address] [address] [place] [address] Allergies No Known Allergiesdocumented as of this encounter (statuses as of 07/01/2019) Medications Medication Sig Dispensed Refills Start Date [...] as of this encounter (statuses as of 07/01/2019) Active Problems Problem Noted Date Morbid obesity with body mass index of 50 or higher Right ureteral stone 05/17/2019 Overview: Added automatically from request for evan vazquez [id number] documented as of this encounter (statuses as of 07/01/2019) Social History Tobacco Use Types Packs/Day Years [...] 07/26/2019 Office Visit Urology Amilcar Castillo MD [address] [place] [address] [phone] Health Maintenance Due Date Last Done [...] of this encounter Implants Implanted Type Area Neurocritical Care Physician Device Shelf Model / Identifier Expiration Serial / Lot Date Stent Ureteral Percuflex Plus 6x24 [employer] # [id number] [[id number]] [place] [id number] / Implanted: Qty: 1 on 05/23/2019 by Amilcar Acosta MD at [facility] Scientific 0 / 0 Stent Ureteral Percuflex Plus 6x26 [employer] # [id number] [[id number]] Right: [place] 04/07/2022 [id number] / Implanted: Qty: 1 on 06/20/2019 by Amilcar Acosta MD at [facility] [employer]ter Scientific [id number] / [id number] documented as of this encounter Procedures Procedure Name Priority Date/Time Associated Diagnosis Comme nts DISCLOSURE AND CONSENT, Routine 06/28/2019 12:01 AM MEDICAL AND SURGICAL CDT PROCEDURES documented in this encounter Results Not on filedocumented in this encounter Insurance Payer Benefit Plan Subscriber ID Effective Dates Phone Address Type / Group [facility] [id number] 2016-Nancy [phone] [address] PPO/POS [place] SELECT t 7 [id number] [place] [address] documented as of this encounter
--- OUTSIDE RECORDS SUMMARY | 2019-08-19 13:23 | XMS REPORT | Summary of Care ---
:1960 Author Organization [facility] Address [address] [place] [address] Care Team Providers Name Role Phone ClaytonFreddie Primary Care Provider Reason for Visit Reason Comments Refill Request Encounter Details Date Type Department Care Team Description 08/09/2019 Refill [facility] Urology- Asiya Castillo MD Refill Request [address] [facility] [place] [address] [address] [place] [address] [phone] Allergies No Known Allergiesdocumented as of this encounter (statuses as of 08/09/2019) Medications Medication Sig Dispensed Refills Start Date [...] as of this encounter (statuses as of 08/09/2019) Active Problems Problem Noted Date Morbid obesity with body mass index of 50 or higher Right ureteral stone 05/17/2019 Overview: Added automatically from request for evan vazquez [id number] documented as of this encounter (statuses as of 08/09/2019) Social History Tobacco Use Types Packs/Day Years [...] 30 + pack year history INFLUENZA VACCINE (Season Ended) 2019 PNEUMOCOCCAL 0-64 YEARS COMBINED Aged Out No longer eligible based on SERIES patient's age to complete this topic documented as of this encounter Implants Implanted Type Area Clam Grader Device Shelf Model / Identifier Expiration Serial / Lot Date Stent Ureteral Percuflex Plus 6x24 [employer] # [id number] [[id number]] [employer] [id number] / Implanted: Qty: 1 on 05/23/2019 by Amilcar Acosta MD at [facility] Scientific 0 / 0 Stent Ureteral Percuflex Plus 6x26 [employer] # [id number] [[id number]] Right: [employer] 04/07/2022 [id number] / Implanted: Qty: 1 on 06/20/2019 by Amilcar Acosta MD at [facility] [employer] [id number] documented as of this encounter Results Not on filedocumented in this encounter Visit Diagnoses Diagnosis Right ureteral stone Calculus of ureter documented in this encounter Insurance Payer Benefit Plan Subscriber ID Effective Dates Phone Address Type / Group [facility] [id number] 2016-Nancy [phone] [address] PPO/POS [facility] 7 [id number] [place] [address] documented as of this encounter
--- OUTSIDE RECORDS SUMMARY | 2019-08-19 13:23 | XMS REPORT | Summary of Care ---
:1960 Author Organization [facility] Address [address] [place] [address] Care Team Providers Name Role Phone Freddie Clayton Froy Primary Care Provider Reason for Visit Reason Comments Refill Request Encounter Details Date Type Department Care Team Description 08/04/2019 Refill [facility] Denise Christensen MD Refill Request [address] [place] [address] [place] [address] [place] [address] [phone] Allergies No Known Allergiesdocumented as of this encounter (statuses as of 08/04/2019) Medications Medication Sig Dispensed Refills Start Date [...] as of this encounter (statuses as of 08/04/2019) Active Problems Problem Noted Date Morbid obesity with body mass index of 50 or higher Right ureteral stone 05/17/2019 Overview: Added automatically from request for evan vazquez [id number] documented as of this encounter (statuses as of 08/04/2019) Social History Tobacco Use Types Packs/Day Years [...] of this encounter Implants Implanted Type Area Care Manager Cna Device Shelf Model / Identifier Expiration Serial / Lot Date Stent Ureteral Percuflex Plus 6x24 [employer] [employer] # [id number] [[id number]] [place] [id number] / Implanted: Qty: 1 on 05/23/2019 by Amilcar Acosta MD at [facility] Scientific 0 / 0 Stent Ureteral Percuflex Plus 6x26 [employer] # [id number] [[id number]] Right: [place] 04/07/2022 [id number] / Implanted: Qty: 1 on 06/20/2019 by Amilcar Acosta MD at [facility] U[employer] [id number] documented as of this encounter Results Not on filedocumented in this encounter Visit Diagnoses Diagnosis Right ureteral stone Calculus of ureter documented in this encounter Insurance Payer Benefit Plan Subscriber ID Effective Dates Phone Address Type / Group [facility] [id number] 2016-Nancy [phone] [address] PPO/POS [place] SELECT t 7 [id number] [place] [address] documented as of this encounter
[2019-08-19] MEDS ORDERED: Magnesium Sulfate 2gm IVPB 2 G/50 ML BAG IV ONE (13:27)
--- NOTE | 2019-08-19 14:13 | RAD REPORT ---
EXAM DESCRIPTION: CT - Stone Protocol - 08/19/2019 2:06 pm CLINICAL HISTORY: Flank pain. r/o stone COMPARISON: Abdomen Pelvis Wo Contrast dated 04/12/2019 TECHNIQUE: Axial images were obtained without oral or IV contrast. Lack of contrast limits solid org an and vascular assessment. The [id number] spans the entirety of the system partially obscuring uppermost abdomen and lung bases. Coronal reformatted images were obtained and reviewed. All CT scans are performed using dose optimization technique as appropriate and may include automated exposure control or mA/KV adjustment according to patient size. FINDINGS: The lower lung godwin are clear. Imaged portions of the liver and spleen show no suspicious findings on non-contrast imaging. The panc reas and left adrenal gland are normal.Small fatty mass right adrenal gland measuring 14 mm likely a myelolipoma. No pathologic lymphadenopathy in the abdomen or pelvis. Small nonobstructing calculi are present in both kidneys. The largest is in the superior pole right k idney measuring 6 mm. No bowel obstruction, free air, free fluid or abscess. Normal appendix noted. No significant bony abnormality. IMPRESSION: Bilateral nephrolithiasis without hydronephrosis.
--- NOTE | 2019-08-19 15:31 | RAD REPORT ---
EXAM DESCRIPTION: NM - Vent Perfusion VQ Scan - 08/19/2019 3:15 pm CLINICAL HISTORY: Dyspnea;Pain Chest pain, shortness of breath COMPARISON: CT MULTIPLANAR RECONSTRUCTION dated 03/09/2015 TECHNIQUE: 20.6mCi Xe-133 gas inhaled and 7.3mCi Tc-MAA IV. Planar ventilation scan was performed in posterior projection after Xe-133 gas inhalation (wash-in, e quilibrium, and wash-out phases) followed by perfusion scan with Tc-MAA IV in multiple projections. Examination is correlated with recent chest radiograph. FINDINGS: Normal ventilation with mild significant air-trapping. No mismatched segmental perfusion defect. IMPRESSION: Low probability of acute pulmonary embolism. Mild COPD physiology.
[2019-08-19 16:52] VITALS: BMI 44.4
[2019-08-19] MEDS ORDERED: ONDANSETRON 4 MG/2 ML VIAL IV PRN (16:52)
[2019-08-19] MEDS ORDERED: ENOXAPARIN 30 MG/0.3 ML SQ SCH (17:00)
[2019-08-19] MEDS: NA CHLORIDE 0.9% 1,000 ML IV SCH ×2 (18:11→23:31)
--- NOTE | 2019-08-19 20:03 | ER ---
Nurse's Notes [facility] Name: Keo Richards Age: 58 yrs Sex: Male : 1960 Arrival Date: 08/19/2019 Time: 10:42 Bed 6 Private MD: Diagnosis: Syncope and collapse-near;Dyspnea;Hypomagnesemia;Obesity, unspecified;Atrial fibrillation and flutter-history of Presentation: 08/18 11:06 Chief complaint: Patient states: "Dizziness, profuse sweating, shortness of breath, ss dizziness and lightheadedness that began last Monday, but went away. At work this morning with exertion, it happened again." Pt reports he is feeling better than he was, but still a little dizzy. Coronavirus screen: Proceed with normal triage. Patient denies a cough. Patient denies shortness of breath or difficulty breathing. Patient denies measured and/or subjective temperature greater than 100.4F prior to today's visit. Patient denies travel on a cruise ship or to a country the [facility] currently lists as an affected area. Patient denies contact with known and/or suspected case of COVID-19. Ebola Screen: Patient denies exposure to infectious person. Patient denies travel to an Ebola-affected area in the 21 days before illness onset. Initial Sepsis Screen: Does the patient meet any 2 criteria? No. Patient's initial sepsis screen is negative. Does the patient have a suspected source of infection? No. Patient's initial sepsis screen is negative. Risk Assessment: Do you want to hurt yourself or someone else? Patient reports no desire to harm self or others. Onset of symptoms was August 14, 2019. 11:06 Method Of Arrival: Ambulatory ss 11:06 Acuity: KATHRYN 3 ss Historical: - Allergies: 11:14 No Known Allergies; ss - Home Meds: 11:14 amiodarone 200 mg Oral tab 1 tab once daily [Active]; Eliquis 5 mg Oral tab 1 tab 2 ss times per day [Active]; furosemide 40 mg Oral tab 1 tab once daily [Active]; lisinopril 10 mg Oral tab 1 tab once daily [Active]; Vitamin D Oral daily [Active]; potassium chloride 20 mEq Oral TbER [Active]; Metoprolol Tartrate 12.5 MG Oral once daily [Active]; - PMHx: 11:14 Hypertension; Kidney stones; Pacemaker; Atrial Fib; ss - Immunization history:: Adult Immunizations up to date. - Social history:: Smoking status: Patient denies any tobacco usage or history of. - Family history:: not pertinent. Screenin:40 Abuse screen: Denies threats or abuse. Nutritional screening: No deficits noted. em Tuberculosis screening: No symptoms or risk factors identified. Fall Risk None identified. Assessment: 11:45 General: Appears in no apparent distress. comfortable, Behavior is calm, cooperative, em appropriate for age. Pain: Denies pain. Neuro: Level of Consciousness is awake, alert, obeys commands, Oriented to person, place, time, situation, Appropriate for age Reports dizziness, a syncopal episode. Cardiovascular: Capillary refill < 3 seconds Patient's skin is warm and dry. Respiratory: Airway is patent Respiratory effort is even, unlabored, Respiratory pattern is regular, symmetrical. GI: Abdomen is round non-distended, Patient currently denies nausea, vomiting. Derm: Skin is intact, is healthy with good turgor, Skin is pink, warm \\T\\ dry. Musculoskeletal: Capillary refill < 3 seconds, Range of motion: intact in all extremities. 12:30 Reassessment: Patient appears in no apparent distress at this time. Patient and/or em family updated on plan of care and expected duration. Pain level reassessed. Patient is alert, oriented x 3, equal unlabored respirations, skin warm/dry/pink. 13:31 Reassessment: Patient appears in no apparent distress at this time. Patient and/or em family updated on plan of care and expected duration. Pain level reassessed. Patient is alert, oriented x 3, equal unlabored respirations, skin warm/dry/pink. pending room assignment. 14:57 Reassessment: Patient appears in no apparent distress at this time. Patient and/or em family updated on plan of care and expected duration. Pain level reassessed. Patient is alert, oriented x 3, equal unlabored respirations, skin warm/dry/pink. nuclear med. tech at bedside, pt will be wheeled to get a VQ scan. 16:27 Reassessment: Patient appears in no apparent distress at this time. Patient and/or em family updated on plan of care and expected duration. Pain level reassessed. Patient is alert, oriented x 3, equal unlabored respirations, skin warm/dry/pink. Patient denies pain at this time. Vital Signs: 11:06 BP 130 / 84; Pulse 70; Resp 18; Temp 97.2(TE); Pulse Ox 99% on R/A; Weight 148.78 kg; ss Height 6 ft. 0 in. (182.88 cm); Pain 0/10; 11:43 BP 118 / 75; Pulse 65; Resp 17; Pulse Ox 98% ; jl7 12:30 BP 116 / 60; Pulse 62; Resp 18; Pulse Ox 99% on R/A; Pain 0/10; em 13:30 BP 130 / 81; Pulse 60; Resp 16; Pulse Ox 99% on R/A; em 14:30 BP 132 / 69; Pulse 61; Resp 18; Pulse Ox 100% on R/A; em 15:30 BP 125 / 76; Pulse 63; Resp 16; Pulse Ox 99% on R/A; em 11:06 Body Mass Index 44.48 (148.78 kg, 182.88 cm) ED Course: 10:42 Patient arrived in ED. fj1 11:03 Tez Webster MD is Attending Physician. keli 11:13 Triage completed. ss 11:14 Arm band placed on right wrist. ss 11:21 Jacinto Cheatham, RN is Primary Nurse. em 11:30 Initial lab(s) drawn, by az, sent to lab. Inserted saline lock: 20 gauge in right em1 antecubital area, using aseptic technique. Blood collected. 11:40 Patient has correct armband on for positive identification. Placed in gown. Bed in low em position. Call light in reach. 11:43 XRAY Chest (1 view) In Process Unspecified. EDMS 11:46 EKG done, by technical support agent. reviewed by Tez Webster MD. at1 12:35 Kevin Crisostomo DO is Hospitalizing Provider. keli 13:09 US Extremity Venous W Compression Mauricio In Process Unspecified. EDMS 14:05 Stone Protocol In Process Unspecified. EDMS 14:50 Urine collected: clean catch specimen, clear. dh3 15:26 Note: VQ SCAN COMPLETE. PT TOLERATED TEST WELL. NO CHANGE. RETURNED TO ED. NURSE abebe NOTIFIED. RT JEAN PIERRE(N), RESOURCE MANAGER FORESTER. 16:40 No provider procedures requiring assistance completed. Patient admitted, IV remains in em place. Administered Medications: 11:51 Drug: NS 0.9% 1000 ml Route: IV; Rate: 125 ml/hr; Site: right antecubital; em 16:40 Follow up: IV Status: Infusion continued upon admission em 13:28 Drug: Magnesium Sulfate 2 grams Route: IVPB; Infused Over: 2 hrs; Site: right em antecubital; 15:30 Follow up: IV Status: Completed infusion; IV Intake: 100ml em Intake: 15:30 IV: 100ml; Total: 100ml. em Outcome: 12:42 Decision to Hospitalize by Provider. keli 16:40 Admitted to Med/surg accompanied by tech, via stretcher, with chart, Report called to mookie Gandhi RN 16:40 Condition: good 16:40 Instructed on the need for admit, Demonstrated understanding of instructions. 16:41 Patient left the ED. em Signatures: Dispatcher [employer] Tez Beltarn MD MD cha Munoz, Edgar, RN RN Kimberly Sanches Eric em1 Kylee Nguyen RN RN Marissa Tucker, motor operator EKG Tat1 Sarina Guillaume RN RN jl7 Cyn Falk 3 Steven Juan [facility]
--- NOTE | 2019-08-19 20:04 | EDPHYS ---
Physician Documentation [facility] Name: Keo Richards Age: 58 yrs Sex: Male : 1960 Arrival Date: 08/19/2019 Time: 10:42 Bed 6 Private MD: ED Physician Tez Webster HPI: 08/18 11:17 This 58 yrs old Male presents to ER via Ambulatory with complaints of PROFUSE keli SWEATING, DIFFICULTY BREATHING, NERVOUSNESS, AND DIZZINESS. 11:17 The patient has shortness of breath with light activity. Onset: The symptoms/episode keli began/occurred just prior to arrival. Duration: The symptoms are continuous, and are steadily getting worse. The patient's shortness of breath is aggravated by nothing, is alleviated by nothing. The patient has experienced near-syncope. The patient presents with dizziness. Modifying factors: The symptoms are alleviated by nothing, the symptoms are aggravated by nothing. Historical: - Allergies: 11:14 No Known Allergies; ss - Home Meds: 11:14 amiodarone 200 mg Oral tab 1 tab once daily [Active]; Eliquis 5 mg Oral tab 1 tab 2 ss times per day [Active]; furosemide 40 mg Oral tab 1 tab once daily [Active]; lisinopril 10 mg Oral tab 1 tab once daily [Active]; Vitamin D Oral daily [Active]; potassium chloride 20 mEq Oral TbER [Active]; Metoprolol Tartrate 12.5 MG Oral once daily [Active]; - PMHx: 11:14 Hypertension; Kidney stones; Pacemaker; Atrial Fib; ss - Immunization history:: Adult Immunizations up to date. - Social history:: Smoking status: Patient denies any tobacco usage or history of. - Family history:: not pertinent. ROS: 11:17 Constitutional: Negative for fever, chills, and weight loss, Eyes: Negative for injury, keli pain, redness, and discharge, ENT: Negative for injury, pain, and discharge, Neck: Negative for injury, pain, and swelling, Cardiovascular: Negative for chest pain, palpitations, and edema, Respiratory: Negative for shortness of breath, cough, wheezing, and pleuritic chest pain, Abdomen/GI: Negative for abdominal pain, nausea, vomiting, diarrhea, and constipation, Back: Negative for injury and pain, : Negative for injury, bleeding, discharge, and swelling, MS/Extremity: Negative for injury and deformity, Psych: Negative for depression, anxiety, suicide ideation, homicidal ideation, and hallucinations, Allergy/Immunology: Negative for hives, rash, and allergies, Endocrine: Negative for neck swelling, polydipsia, polyuria, polyphagia, and marked weight changes, Hematologic/Lymphatic: Negative for swollen nodes, abnormal bleeding, and unusual bruising. 11:17 Skin: Positive for diaphoresis. 11:17 Neuro: Positive for dizziness, near syncope. Exam: 11:17 Constitutional: This is a well developed, well nourished patient who is awake, alert, keli and in no acute distress. Head/Face: Normocephalic, atraumatic. Eyes: Pupils equal round and reactive to light, extra-ocular motions intact. Lids and lashes normal. Conjunctiva and sclera are non-icteric and not injected. Cornea within normal limits. Periorbital areas with no swelling, redness, or edema. ENT: Nares patent. No nasal discharge, no septal abnormalities noted. Tympanic membranes are normal and external auditory canals are clear. Oropharynx with no redness, swelling, or masses, exudates, or evidence of obstruction, uvula midline. Mucous membranes moist. Neck: Trachea midline, no thyromegaly or masses palpated, and no cervical lymphadenopathy. Supple, full range of motion without nuchal rigidity, or vertebral point tenderness. No Meningismus. Chest/axilla: Normal chest wall appearance and motion. Nontender with no deformity. No lesions are appreciated. Cardiovascular: Regular rate and rhythm with a normal S1 and S2. No gallops, murmurs, or rubs. Normal PMI, no JVD. No pulse deficits. Respiratory: Lungs have equal breath sounds bilaterally, clear to auscultation and percussion. No rales, rhonchi or wheezes noted. No increased work of breathing, no retractions or nasal flaring. Abdomen/GI: Soft, non-tender, with normal bowel sounds. No distension or tympany. No guarding or rebound. No evidence of tenderness throughout. Back: No spinal tenderness. No costovertebral tenderness. Full range of motion. Male : Normal genitalia with no discharge or lesions. Skin: Warm, dry with normal turgor. Normal color with no rashes, no lesions, and no evidence of cellulitis. MS/ Extremity: Pulses equal, no cyanosis. Neurovascular intact. Full, normal range of motion. Neuro: Awake and alert, GCS 15, oriented to person, place, time, and situation. Cranial nerves II-XII grossly intact. Motor strength 5/5 in all extremities. Sensory grossly intact. Cerebellar exam normal. Normal gait. Psych: Awake, alert, with orientation to person, place and time. Behavior, mood, and affect are within normal limits. 11:19 Abdomen/GI: Inspection: abdomen appears normal, Bowel sounds: normal, Palpation: [facility] abdomen is soft and non-tender, Liver: no appreciated palpable abnormalities, Hernia: not appreciated. 11:42 Abdomen/GI: Exam negative for acute changes, Inspection: abdomen appears normal, Bowel keli sounds: active, Palpation: nontender, Liver: no appreciated palpable abnormalities, Hernia: not appreciated. 11:44 ECG was reviewed by the Attending Physician. [facility] Vital Signs: 11:06 BP 130 / 84; Pulse 70; Resp 18; Temp 97.2(TE); Pulse Ox 99% on R/A; Weight 148.78 kg; ss Height 6 ft. 0 in. (182.88 cm); Pain 0/10; 11:43 BP 118 / 75; Pulse 65; Resp 17; Pulse Ox 98% ; jl7 12:30 BP 116 / 60; Pulse 62; Resp 18; Pulse Ox 99% on R/A; Pain 0/10; em 13:30 BP 130 / 81; Pulse 60; Resp 16; Pulse Ox 99% on R/A; em 14:30 BP 132 / 69; Pulse 61; Resp 18; Pulse Ox 100% on R/A; em 15:30 BP 125 / 76; Pulse 63; Resp 16; Pulse Ox 99% on R/A; em 11:06 Body Mass Index 44.48 (148.78 kg, 182.88 cm) MDM: 11:03 Patient medically screened. [facility] 11:19 Data reviewed: vital signs, nurses notes, lab test result(s), EKG, radiologic studies, [facility] plain films. 11:27 Differential diagnosis: Anemia CHF exacerbation, pulmonary edema, Pulmonary Embolism keli reactive airway disease. Antibiotic administration: Not indicated. Differential Diagnosis: cardiac arrhythmia, GI bleed, vasovagal episode, cardiac arrhythmia, generalized weakness, GI bleed, hypovolemia, idiopathic dizziness, near-syncope, vertigo. The patient's Wells Deep Vein Thrombosis Score was calculated as follows: Total Score: 0-2 Pts- Low Risk. The patient's pulmonary embolism risk score was calculated as follows: Total Score: 0-2 points. This patient was found to be at low risk for a pulmonary embolism by using the Well's assessment criteria. Data interpreted: desk monitor: rate is 70 beats/min, rhythm is normal sinus rhythm, Pulse oximetry: on room air is 99 %. Test interpretation: by ED physician or midlevel provider: ECG, plain radiologic studies. 15:32 Immunization status: Influenza vaccine: Awaiting: vq scan. ED course: pt remained keli hemodynamically stable, renal insufficency, vq scan ordered per dr bobo, us dvt study negative. patient aware of plan, dr bobo .. 08/18 11:16 Order name: Basic Metabolic Panel; Complete Time: 12:33 [facility] 08/18 11:16 Order name: CBC with Diff; Complete Time: 11:55 [facility] 08/18 11:16 Order name: LFT's; Complete Time: 12:33 [facility] 08/18 11:16 Order name: Magnesium; Complete Time: 12:33 [facility] 08/18 11:16 Order name: NT PRO-BNP; Complete Time: 12:33 [facility] 08/18 11:16 Order name: PT-INR; Complete Time: 11:55 [facility] 08/18 11:16 Order name: Troponin (emerg Dept Use Only); Complete Time: 12:33 [facility] 08/18 11:16 Order name: XRAY Chest (1 view); Complete Time: 11:55 [facility] 08/18 11:16 Order name: Lipase; Complete Time: 12:33 [facility] 08/18 11:16 Order name: D-Dimer; Complete Time: 11:55 [facility] 08/18 11:56 Order name: US Extremity Venous W Compression Mauricio; Complete Time: 14:43 [facility] 08/18 12:34 Order name: VQ scan (Nuclear Medicine) [facility] 08/18 11:16 Order name: EKG; Complete Time: 11:18 [facility] 08/18 11:16 Order name: Cardiac monitoring; Complete Time: 11:21 [facility] 08/18 11:16 Order name: EKG - Nurse/Tech; Complete Time: 11:30 [facility] 08/18 11:16 Order name: IV Saline Lock; Complete Time: 11:30 [facility] 08/18 11:16 Order name: Labs collected and sent; Complete Time: 11: [facility] 08/18 11:16 Order name: O2 Per Protocol; Complete Time: : [facility] 08/18 11:16 Order name: O2 Sat Monitoring; Complete Time: : [facility] 08/18 11:16 Order name: Urine Dipstick-Ancillary (obtain specimen); Complete Time: 15:03 [facility] 08/18 13:44 Order name: Stone Protocol EDMS EC:44 Rate is 68 beats/min. Rhythm is regular. QRS [place] is Normal. [place] interval is normal. QRS keli interval is normal. QT interval is normal. No Q waves. T waves are Normal. No ST changes noted. Clinical impression: Normal ECG and No evidence of ischemia. Interpreted by me. Reviewed by me. Administered Medications: 11:51 Drug: NS 0.9% 1000 ml Route: IV; Rate: 125 ml/hr; Site: right antecubital; em 16:40 Follow up: IV Status: Infusion continued upon admission em 13:28 Drug: Magnesium Sulfate 2 grams Route: IVPB; Infused Over: 2 hrs; Site: right em antecubital; 15:30 Follow up: IV Status: Completed infusion; IV Intake: 100ml em Disposition: 08/19/19 12:42 Hospitalization ordered by Kevin Bobo for Inpatient Admission. Preliminary diagnosis are Syncope and collapse - near, Dyspnea, Hypomagnesemia, Obesity, unspecified, Atrial fibrillation and flutter - history of. - Bed requested for Telemetry/MedSurg (Inpatient). - Status is Inpatient Admission. em - Condition is Fair. - Problem is new. - Symptoms have improved. Signatures: Dispatcher [employer] EDMS Jazzmine Cuevas Corey, MD MD cha Munoz, Edgar, RN RN em Kylee Nguyen RN RN ss Corrections: (The following items were deleted from the chart) 12:38 11:57 Chest For PE Angio+CT.RAD.BRZ ordered. EDDC EDMS 14:18 12:43 Vent Perfusion VQ Scan+NM.RAD.BRZ ordered. EDDC EDMS 14:53 12:42 Hospitalization Ordered by Kevin Bobo DO for Inpatient Admission. Preliminary bd diagnosis is Syncope and collapse - near; Dyspnea; Hypomagnesemia; Obesity, unspecified; Atrial fibrillation and flutter - history of. Bed requested for Telemetry/MedSurg (Inpatient). Status is Inpatient Admission. Condition is Fair. Problem is new. Symptoms have improved. keli 16:41 14:53 08/19/2019 12:42 Hospitalization Ordered by Kevin Bobo DO for Inpatient em Admission. Preliminary diagnosis is Syncope and collapse - near; Dyspnea; Hypomagnesemia; Obesity, unspecified; Atrial fibrillation and flutter - history of. Bed requested for Telemetry/MedSurg (Inpatient). Status is Inpatient Admission. Condition is Fair. Problem is new. Symptoms have improved. bd
[2019-08-19] MEDS: ACETAMINOPHEN 500 MG TAB PO PRN (22:14)
--- NOTE | 2019-08-19 22:54 | HP ---
Date of Admission: 08/19/2019 Chief Complaint: Generalized weakness, fatigue, dizziness. Primary Care Physician: Dr. Clayton. Consultants: Dr. Santiago with Nephrology. Dr. Grady with Cardiology. History Of Present Illness: Patient is a 58-year-old male with past medical history of hypertension, kidney stones, status post pacemaker, atrial fibrillation on anticoagulation with Eliquis. Patient comes in with approximately 5 days of fatigue, weakness and dizziness and lightheadedness. Patient denies any associated fever, chills, nausea, vomiting, headache, or vision changes. Patient states that his appetite has been about the same recently. 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 Patient states that he has been taking his medications. States he has not taken his Lasix for while. He is usually uses that as needed only. Patient's symptoms are constant, moderate, progressively worsening. Therefore, came into the hospital for further evaluation. Patient does have a pacemaker and he states that he cannot recall the last time the pacemaker was interrogated. Patient's workup revealed normal white blood cell count. D-dimer was elevated at 656. His magnesium was 1.3, creatinine was 1.72. Chest x-ray was clear. V/Q scan was low probability, showed mild COPD and Doppler sonogram of the lower extremities was negative for DVT. CT scan of the abdomen did show bilateral nephrolithiasis without hydronephrosis and were nonobstructing. Patient's magnesium was replaced. He was given IV fluids and then referred for admission. When seen in the ER, he was awake, alert, oriented x3, in some mild distress. Past Medical History: Hypertension, kidney stones, pacemaker placement, atrial fibrillation. Surgical History: Back surgery, pacemaker placement, kidney stone removal. Allergies: NO KNOWN DRUG ALLERGIES. Medications: List reviewed. Social History: Patient denies any tobacco use, alcohol use, or illicit drug use. Family History: Both parents had diabetes and heart disease. Mother had breast cancer that spread to the spine. Father had lung cancer. Review of Systems: Ten-point system reviewed, negative except as per HPI. Physical Examination: Vital signs:temp 97.2, HR 70, RR 18, BP 130/84, O2 99% General: Awake, alert, oriented x3. Some mild distress. Obese male, mildly ill-appearing. HEENT: Normocephalic, atraumatic. PERRLA, EOMI. Conjunctivae anicteric. Neck: Supple. No JVD. Trachea midline. CV: S1, S2. Regular rate and rhythm. Peripheral pulses present. Respiratory: Moving air well bilaterally. No wheezing or stridor. No use of accessory muscles. Gastrointestinal: Abdomen is soft, nontender, nondistended. Positive bowel sounds. Extremities: No clubbing, cyanosis. Patient has pedal edema. No calf tenderness. Neuro: Cranial nerves 2 through 12 intact grossly. No focal neurological deficits. Speech is normal. Strength is symmetric bilateral upper and lower extremities. Skin: No rashes. Normal skin turgor. Patient does have ecchymosis on the left lower extremity above the knee, anterior aspect of the thigh Psych: Mood is okay. Affect is full. Insight and judgment are good. Laboratory Data: Sodium 137, potassium 4.2, chloride 104, CO2 of 26, BUN 19, creatinine 1.72, glucose 98, calcium 9.6, magnesium 1.3. INR 1.57. D-dimer 656. WBC 8, H and H 12.9 and 38.6, platelets 395, neutrophils 77%. Imaging Studies: Chest x-ray shows no acute abnormality. CT scan, stone protocol shows bilateral nephrolithiasis without hydronephrosis. 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 Lung V/Q scan shows low probability of PE, mild COPD physiology. Assessment And Plan: A 58-year-old male with 1. Near syncopal episode likely due to acute dehydration. Patient has acute elevated creatinine level. We will continue with further workup. We will obtain carotid artery ultrasound to rule out carotid stenosis. We will have pacemaker interrogated. We will consult the patient's dance critic. He is to follow up with Dr. Sinclair. We will check orthostatic vital signs. 2. Generalized weakness, likely secondary to above. 3. Acute kidney injury. We will continue with IV fluids and monitor. Likely prerenal azotemia. We will consult Nephrology. 4. Hypomagnesemia. We will replace and monitor. 5. Elevated D-dimer. Patient's V/Q scan and Doppler negative for venous thromboembolism. 6. Suspect chronic obstructive pulmonary disease. Patient denies any history of smoking. V/Q scan shows mild chronic obstructive pulmonary disease physiology. Would recommend outpatient PFTs and workup. 7. Essential hypertension. We will resume home medications as appropriate. Hold any ACEs or ARBs and diuretics at this time. 8. Status post pacemaker. We will have pacemaker interrogated. 9. Bilateral nephrolithiasis. Patient has previous history of nephrolithiasis. Currently, they are nonobstructing and not causing any hydronephrosis. Patient to follow up with his urologist as an outpatient. 10. Atrial fibrillation paroxysmal. We will continue rate control and anticoagulation. Patient is on Eliquis. 11. Obesity, BMI greater than 30, counseled. 12. Deep venous thrombosis prophylaxis with Lovenox renally dosed. PLAN: Admit patient to Med-Surg, [facility] as observation. DERIK Voice ID: [id number] MTDD
[2019-08-19 23:42] LABS: Urine Appearance CLEAR; Urine Bilirubin NEGATIVE (NEG); Urine Blood NEGATIVE (NEG); Urine Color YELLOW; Urine Glucose NEGATIVE (NEG); Urine Protein NEGATIVE (NEG); Urine Specific Gravity 1.015 (1.005-1.030); Urine pH 6.5 (5.0-7.0)
[2019-08-20 01:01] LABS: Urine Bacteria <20 /HPF (NONE SEEN); Urine Culture Reflex Order NOT NEEDED; Urine RBC <5 /HPF (NONE SEEN)
[2019-08-20 06:47] LABS: Absolute Lymphocytes (CBC) 2.2 K/uL (0.7-4.9); Basophils % 0.6 % (0-1.3); Hematocrit 34.2 % (39.6-49.0); Lymphocytes % 26.1 % (15.3-44.8); RBC Red Blood Cell Count 3.81 M/uL (4.33-5.43)
[2019-08-20 07:08] LABS: Bilirubin Total 0.5 mg/dL (0.2-1.0); Potassium 4.1 mmol/L (3.5-5.1)
[2019-08-20 07:09] LABS: Albumin 3.2 g/dL (3.4-5.0); Magnesium 1.7 mg/dL (1.8-2.4)
[2019-08-20] MEDS ORDERED: APIXABAN 5 MG TABLET PO SCH (09:00)
[2019-08-20] MEDS: NA CHLORIDE 0.9% 1,000 ML IV SCH ×2 (09:15→12:52)
[2019-08-20] MEDS: ACETAMINOPHEN 500 MG TAB PO PRN (09:17)
--- NOTE | 2019-08-20 13:11 | P.DS ---
Admission Date: 08/19/19 Discharge Date: 08/20/19 Primary Care Provider: Dr. Clayton; Cardiology-Dr. Gudino, Nephrology-Dr. Santiaog Disposition: ROUTINE DISCHARGE Discharge Condition: GOOD Consultations: Cardiology-Dr. Gudino Nephrology-Dr. Santiago Procedures: CT Scan: FINDINGS: The lower lung godwin are clear. Imaged portions of the liver and spleen show no suspicious findings on non- contrast imaging. The pancreas and left adrenal gland are normal.Small fatty mass right adrenal gland measuring 14 mm likely a myelolipoma. No pathologic lymphadenopathy in the abdomen or pelvis. Small nonobstructing calculi are present in both kidneys. The largest is in the superior pole right kidney measuring 6 mm. No bowel obstruction, free air, free fluid or abscess. Normal appendix noted. No significant bony abnormality. IMPRESSION: Bilateral nephrolithiasis without hydronephrosis. V/Q Scan: FINDINGS: Normal ventilation with mild significant air-trapping. No mismatched segmental perfusion defect. IMPRESSION: Low probability of acute pulmonary embolism. Mild COPD physiology. Venous doppler: FINDINGS: Normal compressibility, flow augmentation, phasic flow and spontaneous flow is identified in both the left and right lower extremity deep venous systems. IMPRESSION: No sonographic evidence of left or right lower extremity deep venous thrombosis Medical problem list: Near syncope likely acute dehydration and related to blood pressure medication Acute renal injury likely related to above Hypomagnesium Hypertension History of pacemaker Bilateral nephrolithiasis without obstruction Paroxysmally atrial fibrillation on chronic anti coagulation therapy Possible underlying COPD Brief History of Present Illness: 58-year-old male presented to the emergency room with fatigue, weakness and lightheadedness. Patient with history of atrial fibrillation, hypertension, and pacemaker. Patient was admitted for further evaluation and treatment. Hospital Course: Patient presented with dizziness, headaches and weakness with near syncopal episode. Patient found to have acute renal injury likely related to dehydration. Patient was seen and evaluated by nephrology and cardiology. Patient given IV fluids. Blood pressure medications were held. Pacemaker was interrogated. At discharge renal function near to baseline. V/Q scan and venous Doppler were negative. At discharge cardiology recommends to discontinue lisinopril and metoprolol. Recommend to monitor his blood pressure closely. Patient with underlying atrial fibrillation on chronic anti coagulation therapy. At discharge he will continue with amiodarone and Eliquis. Recommend follow up with cardiology in 1 week to follow up this hospitalization. V/Q scan showed the possibility of possible underlying COPD. Recommend further evaluation as an outpatient with pulmonology. Patient will likely require pulmonary function test to further evaluate. Patient found to have bilateral nephrolithiasis. No obstruction identified. Recommend follow up with urology as an outpatient. Patient found to have acute renal injury. Patient seen by nephrology. Patient given IV fluids. Medications were held including lisinopril. Recommend to continued to discontinue lisinopril at discharge. Recommend to recheck lab-BMP in 1 week to further evaluate and monitor. Recommend follow up with nephrology as an outpatient to further address. Patient with low magnesium. This was replaced per protocol. At discharge patient may continue with magnesium 400 mg daily. Recommend to recheck magnesium level in 1 week. Vital Signs/Physical Exam: Temp Pulse Resp BP Pulse Ox 96.9 F 62 18 133/64 98 08/20/19 08:00 08/20/19 08:00 08/20/19 08:00 08/20/19 08:00 08/20/19 08:00 General: Alert, In no apparent distress, Oriented x3 HEENT: Atraumatic Neck: Supple Respiratory: Clear to auscultation bilaterally, Normal air movement Cardiovascular: Normal pulses, Regular rate/rhythm Gastrointestinal: No tenderness, No masses, No rebound, No guarding Neurological: Normal speech, Normal strength at 5/5 x4 extr, Normal tone, Normal affect Laboratory Data at Discharge: WBC 8.3 K/uL (4.3-10.9) 08/20/19 06:11 Hgb 11.5 g/dL (13.6-17.9) L 08/20/19 06:11 Hct 34.2 % (39.6-49.0) L 08/20/19 06:11 Plt Count 310 K/uL (152-406) D 08/20/19 06:11 PT 18.4 SECONDS (9.5-12.5) H 08/19/19 11:25 INR 1.57 08/19/19 11:25 Sodium 139 mmol/L (136-145) 08/20/19 06:11 Potassium 4.1 mmol/L (3.5-5.1) 08/20/19 06:11 BUN 17 mg/dL (7-18) 08/20/19 06:11 Creatinine 1.12 mg/dL (0.55-1.3) 08/20/19 06:11 Glucose 92 mg/dL (74-106) 08/20/19 06:11 Phosphorus 3.0 mg/dL (2.5-4.9) 08/20/19 06:11 Magnesium 1.7 mg/dL (1.8-2.4) L 08/20/19 06:11 Total Bilirubin 0.5 mg/dL (0.2-1.0) 08/20/19 06:11 AST 21 U/L (15-37) 08/20/19 06:11 ALT 24 U/L (12-78) 08/20/19 06:11 Alkaline Phosphatase 61 U/L (45-117) 08/20/19 06:11 Lipase 199 U/L (73-393) 08/19/19 11:25 Home Medications: Amiodarone HCl [Cordarone*] 200 mg PO DAILY 08/20/19 Apixaban [Eliquis] 5 mg PO BID 08/20/19 Ergocalciferol (Vitamin D2) [Vitamin D2] 50 mcg PO DAILY 08/20/19 Furosemide [Lasix*] 40 mg PO SEECOM 08/20/19 Magnesium Oxide [Magnesium] 400 mg PO DAILY #30 capsule 08/20/19 Potassium Chloride 20 meq PO SEECOM 08/20/19 New Medications: Magnesium Oxide [Magnesium] 400 mg PO DAILY #30 capsule Patient Discharge Instructions: 1. Follow up with PCP within 1 week to follow up this hospitalization. 2. Patient presented with dizziness, headaches and weakness with near syncopal episode. Patient found to have acute renal injury likely related to dehydration. Patient was seen and evaluated by nephrology and cardiology. Patient given IV fluids. Blood pressure medications were held. Pacemaker was interrogated. At discharge renal function near to baseline. V/Q scan and venous Doppler were negative. At discharge cardiology recommends to discontinue lisinopril and metoprolol. Recommend to monitor his blood pressure closely. Patient with underlying atrial fibrillation on chronic anti coagulation therapy. At discharge he will continue with amiodarone and Eliquis. Recommend follow up with cardiology in 1 week to follow up this hospitalization. 3. V/Q scan showed the possibility of possible underlying COPD. Recommend further evaluation as an outpatient with pulmonology. Patient will likely require pulmonary function test to further evaluate. 4. Patient found to have bilateral nephrolithiasis. No obstruction identified. Recommend follow up with urology as an outpatient. 5. Patient found to have acute renal injury. Patient seen by nephrology. Patient given IV fluids. Medications were held including lisinopril. Recommend to continued to discontinue lisinopril at discharge. Recommend to recheck lab-BMP in 1 week to further evaluate and monitor. Recommend follow up with nephrology as an outpatient to further address. 6. Patient with low magnesium. This was replaced per protocol. At discharge patient may continue with magnesium 400 mg daily. Recommend to recheck magnesium level in 1 week. Diet: AHA Activity: Ad patsy Time spent managing pt's care (in minutes): 55
[2019-08-20 14:15] VITALS: BP 137/74; TEMP 97
[2019-08-20 16:09] VITALS: O2SAT 98
--- NOTE | 2019-08-20 23:51 | CON ---
Date of Consultation: 08/20/2019 The patient was admitted by Dr. Mccoy's service on 08/19/2019. I saw the patient on 08/20/2019. Reason For Consultation: Near syncope. History Of Present Illness: Mr. Richards is a 58-year-old white male, has a history of pacemaker, a trial fibrillation, hypertension, came in with near syncopal episode, happened when he was standing u p. Did get some diaphoresis before his episode. Denies any nausea, vomiting. Denied any chest pain . Denied any PND, orthopnea, pedal edema, or palpitations. When he came in, he was noted to have a creatinine of 1.72. Nephrology was consulted. He does have a pacemaker that appears to be functioni ng appropriately. He had a magnesium of 1.3. His D-dimer was 656. The pacemaker was checked and is a dual pacemaker. Normal testing, 6.5 years remaining. Had 6 very short episodes of atrial fibrill ation, longest was 12 seconds. No ventricular tachycardia noted. Past Medical History: As stated above. Allergies: NONE. Review of Systems: Negative. Social History: Negative. Family History: Noncontributory. Medications: At home include Eliquis, amiodarone, metoprolol, potassium, and lisinopril. Physical Examination: General: He was in a paced rhythm. No acute distress. Vital Signs: Stable. He is afebrile. HEENT: Negative. Neck: Supple with no bruit. Chest: Clear. Cardiac: Revealed a paced rhythm. No murmurs, gallops, or rubs. Abdomen: Benign. Extremities: Revealed no clubbing, cyanosis, or edema. Diagnostic Data: His creatinine is 1.72, D-dimer is 656. V/Q scan was negative. Chest x-ray is neg ative. Venous Doppler was negative. Magnesium was 1.3. Impression: 1.Presyncope secondary to orthostatic hypotension. 2.Pacemaker with normal function by investigation today. 3.Atrial fibrillation, on amiodarone and Eliquis. He is in paced rhythm. 4.Hypertension, well controlled, complicated by hypotension. 5.Hypomagnesemia. 6.Renal insufficiency, possibly secondary to dehydration. Plan: I suggest that Mr. Richards can go home. Continue the amiodarone, Eliquis. He should basica lly continue the potassium supplementation, stop his lisinopril, stop his metoprolol for now. Have h im get well hydrated, put him on p.o. magnesium as an outpatient and I will be happy to see him in [facility] office in the near future. We can consider an echocardiogram, carotid Doppler and an outpatient st ress test as well. JO/NELIA Voice ID: [id number] Report ID: [id number]
[2019-08-21] MEDS ORDERED: AMIODARONE HCL 200 MG TAB PO SCH (09:00)
== END 2019-08-20 15:36 | disposition home or self-care (01) ==
LOC: ER 10:40 → ERHOLD 14:16 → 2ND 16:07
PROVIDERS: ADMIT Family Medicine; ATTEND Family Medicine
DX: N17.9 Acute kidney failure, unspecified (principal); E86.0 Dehydration; I10 Essential (primary) hypertension; R55 Syncope and collapse; E83.42 Hypomagnesemia; I95.1 Orthostatic hypotension; N20.0 Calculus of kidney; I48.0 Paroxysmal atrial fibrillation; Z95.0 Presence of cardiac pacemaker; E66.9 Obesity, unspecified; Z68.41 Body mass index [BMI] 40.0-44.9, adult
CPT/HCPCS: 96365; 96361; 93005; 85025 ×2; 81001; 80048; 36415; 83735 ×2; 84100; 85610; 85379; 80076; 84484; 83690; 80053; 83880; 76377; 74176; 71045; 93970; 97116; 97161; 94760 ×3; 78582; 99285; 96366; J1650; J3475; J7030 ×3; A9558; A9540; G0378 ×3

== ENCOUNTER 2020-09-01 18:11 | Emergency (ER) | payer BC ==
--- OUTSIDE RECORDS SUMMARY | 2020-09-01 18:17 | XMS REPORT | Continuity of Care Document ---
:1960 Author Organization [facility] t Address [address] [place] [address] Care Team Providers Name Role Phone Radiology Attending Clinician Unavailable Jonathan SANDRA Attending Clinician Doctor Unassigned, Name Attending Clinician Unavailable Problems Condition Condition Condition Status Onset Resolution Last Treating Co mments Source Name Details Category Date Date Treatment Clinician Date BPH loc BPH loc Diagnosis [facility] Kidney Kidney Diagnosis Active [facility] stones stones [facility] Hematuria Hematuria Diagnosis Active [facility] Allergies, Adverse Reactions, Alerts This patient has no known allergies or adverse reactions. Medications Ordered Filled Start Stop Current Ordering Indication Dosage Frequency Signature Comments Components Source Medication Medication Date Date Medication? Clinician (SIG) Name Name Lisinopril Lisinopril Yes Chhaya [address] [facility] [place] [facility] Pantoprazol Pantoprazol Yes Chhaya [address] [facility] [facility] Sodium e Sodium [place] [facility] Amlodipine Amlodipine Yes Chhaya [address] [facility] [address] Besylate Besylate [place] [facility] Hydrocodone Hydrocodone Yes Chhaya [address] -Acetaminop -Acetaminop Abiel as needed [facility] Tamsulosin Tamsulosin Yes Chhaya [address] HCl HCl [place] [facility] Meloxicam Meloxicam Yes Chhaya [address] [facility] [address] [place] [facility] Metoprolol Metoprolol Yes Chhaya [address] [facility] Tartrate Tartrate [place] [facility] Magnesium Magnesium Yes Chhaya as [facility] [place] directed [facility] Eliquis 5 Eliquis 5 Yes Chhaya one [facility] mg mg [place] [facility] Procedures This patient has no known procedures. Encounters Start End Encounter Admission Attending Care Care Encounter Source Date/Time Date/Time Type Type Clinicians Facility Department ID 2019-01-10 Outpatient [facility] CAR [id number] MH 08:23:13 [facility] 2020-04-03 2020-04-03 Hospital Radiology [facility] [id number] 07:54:54 23:59:00 Encounter Gabi [id number] [place] [id number] [place] [id number] 2019-08-09 2019-08-09 Refill [facility] [id number] 00:00:00 00:00:00 [place] [id number] [place] [id number] Professio [id number] [address] 2019-08-04 2019-08-04 Refill [facility] [id number] 00:00:00 00:00:00 Amilcar [place] [id number] [place] [id number] Surgical [id number] [place] [id number] 2019-06-28 2019-06-28 Office [facility] [id number] 10:18:35 11:44:02 Visit Amilcar [place] [id number] [place] [id number] Professio [id number] [address] 2019-06-28 2019-06-28 Orders Doctor JHON [id number] 00:00:00 00:00:00 Only Unassigned, E[facility] [id number] [place] [id number] 2019-04-19 2019-04-19 Outpatient Kam Deleon [id number] 11:15:00 11:15:00 t Specialty/U [place] - Specialty rology [facility] a /Urology Clinic l Clinic Outpati ent Clinics Results This patient has no known results.
[2020-09-01 19:04] LABS: Absolute Lymphocytes (CBC) 1.7 K/uL (0.7-4.9); Basophils % 0.6 % (0-1.3); Hematocrit 39.7 % (39.6-49.0); Lymphocytes % 17.2 % (15.3-44.8); RBC Red Blood Cell Count 4.25 M/uL (4.33-5.43)
[2020-09-01 19:07] LABS: Urine Blood Trace-lysed (Negative); Urine Glucose Negative (Negative); Urine Protein Negative (Negative)
[2020-09-01 19:08] LABS: Protime INR 1.33
[2020-09-01 19:17] LABS: ALT/SGPT 25 U/L (12-78); AST/SGOT 24 U/L (15-37); Albumin 3.9 g/dL (3.4-5.0); Alkaline Phosphatase 71 U/L (45-117); BUN Blood Urea Nitrogen 15 mg/dL (7-18); Bicarbonate 27 mmol/L (21-32); Bilirubin Direct 0.2 mg/dL (0-0.2); Bilirubin Total 0.7 mg/dL (0.2-1.0); Creatine Phosphokinase 380 U/L (39-308); Glucose Level 85 mg/dL (74-106); Lipase 83 U/L (73-393); Magnesium 1.6 mg/dL (1.8-2.4); NT PRO-BNP 109 pg/mL (<125); Potassium 3.6 mmol/L (3.5-5.1); Protein, Total 7.9 g/dL (6.4-8.2); Sodium Level 140 mmol/L (136-145); Troponin (Emerg Dept Use Only) < 0.02 ng/mL (0.0-0.045)
--- NOTE | 2020-09-01 19:34 | RAD REPORT ---
EXAM DESCRIPTION: Marco Single View09/01/2020 7:05 pm CLINICAL HISTORY: Cough COMPARISON: 2019 FINDINGS: The lungs appear clear of acute infiltrate. The heart is mildly enlarged. Pacemaker leads in place IMPRESSION: No acute abnormalities displayed
--- NOTE | 2020-09-01 19:53 | EDPHYS ---
Physician Documentation [facility] Name: Keo Richards Age: 59 yrs Sex: Male : 1960 Arrival Date: 09/01/2020 Time: 18:12 Bed 14 Private MD: ED Physician Tez Webster HPI: 09/01 19:43 This 59 yrs old Male presents to ER via Ambulatory with complaints of Heat keli Exposure. 19:43 weak, heat exposure. The patient presents with dizziness, generalized weakness. Onset: keli The symptoms/episode began/occurred today. Context: occurred at work, occurred while the patient was working. Modifying factors: The symptoms are alleviated by nothing, the symptoms are aggravated by standing up, changing position. Associated signs and symptoms: Pertinent positives: headache, tingling, all over. Severity of symptoms: At their worst the symptoms were moderate in the emergency department the symptoms have improved mildly. Onset: The symptoms/episode began/occurred just prior to arrival. Patient's baseline: Neuro: alert and fully oriented. Historical: - Allergies: 18:24 No Known Allergies; jd3 - Home Meds: 18:24 Eliquis oral oral [Active]; magnesium citrate oral oral [Active]; amiodarone 200 mg jd3 Oral tab 1 tab once daily [Active]; Vitamin D Oral daily [Active]; aspirin 81 mg Oral chew 1 tab once daily [Active]; Iron CR Oral [Active]; B12 2000mg tab [Active]; tamsulosin 0.4 mg oral cp24 1 cap once daily [Active]; meloxicam 15 mg oral tab 1 tab once daily [Active]; Tramadol Oral as needed [Active]; Furosemide Oral [Active]; Potassium Chloride Oral [Active]; - PMHx: 18:24 Atrial Fib; Kidney stones; Pacemaker; Hypertension; jd3 - PSHx: 18:24 back surgery; jd3 - Immunization history:: Adult Immunizations up to date. - Social history:: Smoking status: Patient denies any tobacco usage or history of. - Family history:: not pertinent. ROS: 19:48 Constitutional: Negative for fever, chills, and weight loss, Eyes: Negative for injury, keli pain, redness, and discharge, ENT: Negative for injury, pain, and discharge, Neck: Negative for injury, pain, and swelling, Cardiovascular: Negative for chest pain, palpitations, and edema, Respiratory: Negative for shortness of breath, cough, wheezing, and pleuritic chest pain, Abdomen/GI: Negative for abdominal pain, nausea, vomiting, diarrhea, and constipation, Back: Negative for injury and pain, : Negative for injury, bleeding, discharge, and swelling, MS/Extremity: Negative for injury and deformity, Skin: Negative for injury, rash, and discoloration, Psych: Negative for depression, anxiety, suicide ideation, homicidal ideation, and hallucinations, Allergy/Immunology: Negative for hives, rash, and allergies, Endocrine: Negative for neck swelling, polydipsia, polyuria, polyphagia, and marked weight changes, Hematologic/Lymphatic: Negative for swollen nodes, abnormal bleeding, and unusual bruising. 19:48 Neuro: Positive for tingling, weakness. Exam: 19:48 Constitutional: This is a well developed, well nourished patient who is awake, alert, keli and in no acute distress. Head/Face: Normocephalic, atraumatic. Eyes: Pupils equal round and reactive to light, extra-ocular motions intact. Lids and lashes normal. Conjunctiva and sclera are non-icteric and not injected. Cornea within normal limits. Periorbital areas with no swelling, redness, or edema. ENT: Nares patent. No nasal discharge, no septal abnormalities noted. Tympanic membranes are normal and external auditory canals are clear. Oropharynx with no redness, swelling, or masses, exudates, or evidence of obstruction, uvula midline. Mucous membranes moist. Neck: Trachea midline, no thyromegaly or masses palpated, and no cervical lymphadenopathy. Supple, full range of motion without nuchal rigidity, or vertebral point tenderness. No Meningismus. Chest/axilla: Normal chest wall appearance and motion. Nontender with no deformity. No lesions are appreciated. Cardiovascular: Regular rate and rhythm with a normal S1 and S2. No gallops, murmurs, or rubs. Normal PMI, no JVD. No pulse deficits. Respiratory: Lungs have equal breath sounds bilaterally, clear to auscultation and percussion. No rales, rhonchi or wheezes noted. No increased work of breathing, no retractions or nasal flaring. Abdomen/GI: Soft, non-tender, with normal bowel sounds. No distension or tympany. No guarding or rebound. No evidence of tenderness throughout. Back: No spinal tenderness. No costovertebral tenderness. Full range of motion. Male : Normal genitalia with no discharge or lesions. Skin: Warm, dry with normal turgor. Normal color with no rashes, no lesions, and no evidence of cellulitis. MS/ Extremity: Pulses equal, no cyanosis. Neurovascular intact. Full, normal range of motion. Neuro: Awake and alert, GCS 15, oriented to person, place, time, and situation. Cranial nerves II-XII grossly intact. Motor strength 5/5 in all extremities. Sensory grossly intact. Cerebellar exam normal. Normal gait. Psych: Awake, alert, with orientation to person, place and time. Behavior, mood, and affect are within normal limits. 19:48 ECG was reviewed by the Attending Physician. 19:53 Musculoskeletal/extremity: DVT Exam: No signs of deep vein thrombosis. no pain, no keli swelling, no tenderness, negative Homans' sign noted on exam, no appreciated bluish discoloration, no erythema, no increased warmth. Vital Signs: 18:24 BP 143 / 94; Pulse 76; Resp 17 S; Temp 97.8(TE); Pulse Ox 98% on R/A; Weight 146.06 kg jd3 (R); Height 6 ft. 0 in. (182.88 cm) (R); Pain 5/10; 20:04 BP 162 / 88; Pulse 63; Resp 16; Pulse Ox 98% on R/A; jm8 18:24 Body Mass Index 43.67 (146.06 kg, 182.88 cm) jd3 MDM: 18:27 Patient medically screened. keli 19:50 Differential Diagnosis altered mental status. Differential diagnosis: cardiac keli arrhythmia, CVA, generalized weakness, GI bleed, hypovolemia, idiopathic dizziness, near-syncope, vertigo. Data reviewed: vital signs, nurses notes, lab test result(s), EKG, radiologic studies, plain films. 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 Test interpretation: by ED physician or midlevel provider: ECG, plain radiologic studies. 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 09/01 18:30 Order name: Basic Metabolic Panel [facility] 09/01 18:30 Order name: CBC with Diff [facility] 09/01 18:30 Order name: LFT's; Complete Time: 19:28 [facility] 09/01 18:30 Order name: Magnesium; Complete Time: 19:28 [facility] 09/01 18:30 Order name: NT PRO-BNP; Complete Time: 19:28 [facility] 09/01 18:30 Order name: PT-INR; Complete Time: 19:28 [facility] 09/01 18:30 Order name: Troponin (emerg Dept Use Only); Complete Time: 19:28 [facility] 09/01 18:30 Order name: Urine Culture [facility] 09/01 18:30 Order name: Ckmb; Complete Time: 19:28 [facility] 09/01 18:30 Order name: CK; Complete Time: 19:28 [facility] 09/01 18:30 Order name: Lipase; Complete Time: 19:28 [facility] 09/01 18:30 Order name: Basic Metabolic Panel; Complete Time: 19:28 [facility] 09/01 18:30 Order name: CBC with Automated Diff; Complete Time: 19:28 [facility] 09/01 19:06 Order name: Urine Dipstick-Ancillary; Complete Time: 19:28 [facility] 09/01 18:30 Order name: XRAY Chest (1 view); Complete Time: 20:03 [facility] 09/01 18:30 Order name: EKG; Complete Time: 18:31 [facility] 09/01 18:30 Order name: Cardiac monitoring; Complete Time: 19:02 [facility] 09/01 18:30 Order name: EKG - Nurse/Tech; Complete Time: 19:02 [facility] 09/01 18:30 Order name: IV Saline Lock; Complete Time: 19:02 [facility] 09/01 18:30 Order name: Labs collected and sent; Complete Time: 19:02 [facility] 09/01 18:30 Order name: O2 Per Protocol; Complete Time: 19:02 [facility] 09/01 18:30 Order name: O2 Sat Monitoring; Complete Time: 19:02 [facility] 09/01 18:30 Order name: Urine Dipstick-Ancillary (obtain specimen); Complete Time: 19:02 [facility] EC:48 Rate is 66 beats/min. Rhythm is regular. QRS [place] is Normal. [place] interval is normal. QRS keli interval is normal. QT interval is normal. No Q waves. T waves are Normal. No ST changes noted. Clinical impression: NSR w/ Non-specific ST/T Changes, LVH, and No evidence of ischemia. Interpreted by me. Reviewed by me. Administered Medications: 19:13 Drug: NS 0.9% 500 ml Route: IV; Rate: bolus; Site: right antecubital; tr6 19:13 Drug: NS 0.9% 1000 ml Route: IV; Rate: 125 ml/hr; Site: right antecubital; tr6 19:51 Drug: NS 0.9% 1000 ml Route: IV; Rate: 1 bolus; Site: right antecubital; jm8 19:52 Drug: Magnesium Sulfate 1 grams Route: IVPB; Infused Over: 1 hrs; Site: right jm8 antecubital; Disposition: 09/01/20 19:52 Discharged to Home. Impression: Heat exhaustion, unspecified, Weakness, Hypomagnesemia, Cardiomegaly. - Condition is Stable. - Discharge Instructions: Dehydration, Adult, Hypomagnesemia, Weakness, Fatigue, Heat Exhaustion Information, Weakness, Utbs-db-Yxoh, Dehydration, Adult, Sfym-qn-Vzzh. - Medication Reconciliation Form, Thank You Letter, Antibiotic Education, Prescription Opioid Use, Work release form form. - Follow up: Private Physician; When: 2 - 3 days; Reason: Recheck today's complaints, Continuance of care, Re-evaluation by your physician. Follow up: Meng Gudino MD; When: 2 - 3 days; Reason: Recheck today's complaints, Re-evaluation by your physician. - Problem is new. - Symptoms have improved. Signatures: Dispatcher [employer] EDMS Tez Webster MD MD cha Davies, Jonathon, RN RN Charlie Encinas RN RN jm8 Jessie Madrid RN RN tr6 Corrections: (The following items were deleted from the chart) 19:54 19:52 09/01/2020 19:52 Discharged to Home. Impression: Heat exhaustion, unspecified; keli Weakness; Hypomagnesemia. Condition is Stable. Forms are Medication Reconciliation Form, Thank You Letter, Antibiotic Education, Prescription Opioid Use. Follow up: Private Physician; When: 2 - 3 days; Reason: Recheck today's complaints, Continuance of care, Re-evaluation by your physician. Follow up: Meng Gudino; When: 2 - 3 days; Reason: Recheck today's complaints, Re-evaluation by your physician. Problem is new. Symptoms have improved. keli 20:58 19:54 09/01/2020 19:52 Discharged to Home. Impression: Heat exhaustion, unspecified; jm8 Weakness; Hypomagnesemia; Cardiomegaly. Condition is Stable. Discharge Instructions: Dehydration, Adult, Hypomagnesemia, Weakness, Fatigue, Heat Exhaustion Information, Weakness, Fpdz-wy-Hyqz, Dehydration, Adult, Yupb-br-Ciyv. Forms are Medication Reconciliation Form, Thank You Letter, Antibiotic Education, Prescription Opioid Use. Follow up: Private Physician; When: 2 - 3 days; Reason: Recheck today's complaints, Continuance of care, Re-evaluation by your physician. Follow up: Meng Gudino; When: 2 - 3 days; Reason: Recheck today's complaints, Re-evaluation by your physician. Problem is new. Symptoms have improved. keli
--- NOTE | 2020-09-01 19:53 | ER ---
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 their diagnosis was heat exposer, but I never stopped sweating so she wanted me to come and make sure my kidneys were working ok. I steel feel very tired and lethargic now.". Coronavirus screen: At this time, the client does not indicate any symptoms associated with coronavirus-19. Ebola Screen: Patient negative for fever greater than or equal to 101.5 degrees Fahrenheit, and additional compatible Ebola Virus Disease symptoms. Initial Sepsis Screen: Does the patient meet any 2 criteria? No. Patient's initial sepsis screen is negative. Does the patient have a suspected source of infection? No. Patient's initial sepsis screen is negative. Risk Assessment: Do you want to hurt yourself or someone else? Patient reports no desire to harm self or others. Onset of symptoms was September 01, 2020. 18:16 Method Of Arrival: Ambulatory jd3 18:16 Acuity: KATHRYN 3 jd3 Historical: - Allergies: 18:24 No Known Allergies; jd3 - Home Meds: 18:24 Eliquis oral oral [Active]; magnesium citrate oral oral [Active]; amiodarone 200 mg jd3 Oral tab 1 tab once daily [Active]; Vitamin D Oral daily [Active]; aspirin 81 mg Oral chew 1 tab once daily [Active]; Iron CR Oral [Active]; B12 2000mg tab [Active]; tamsulosin 0.4 mg oral cp24 1 cap once daily [Active]; meloxicam 15 mg oral tab 1 tab once daily [Active]; Tramadol Oral as needed [Active]; Furosemide Oral [Active]; Potassium Chloride Oral [Active]; - PMHx: 18:24 Atrial Fib; Kidney stones; Pacemaker; Hypertension; jd3 - PSHx: 18:24 back surgery; jd3 - Immunization history:: Adult Immunizations up to date. - Social history:: Smoking status: Patient denies any tobacco usage or history of. - Family history:: not pertinent. Screenin:58 Abuse screen: Denies threats or abuse. Denies injuries from another. Nutritional jm8 screening: No deficits noted. Tuberculosis screening: No symptoms or risk factors identified. Fall Risk None identified. Assessment: 19:59 General: Appears in no apparent distress. comfortable, Behavior is calm, cooperative, jm8 appropriate for age. Pain: Denies pain. Neuro: No deficits noted. Cardiovascular: Reports fatigue, lightheadedness, Patient's skin is warm and dry. Respiratory: No deficits noted. Airway is patent Trachea midline Respiratory effort is even, unlabored, Respiratory pattern is regular, symmetrical. GI: No deficits noted. No signs and/or symptoms were reported involving the gastrointestinal system. : No deficits noted. No signs and/or symptoms were reported regarding the genitourinary system. EENT: No deficits noted. No signs and/or symptoms were reported regarding the EENT system. Derm: Skin is intact, is healthy with good turgor, Skin is clammy, Skin is pink, warm \\T\\ dry. Skin temperature is warm. Musculoskeletal: No deficits noted. No signs and/or symptoms reported regarding the musculoskeletal system. Vital Signs: 18:24 BP 143 / 94; Pulse 76; Resp 17 S; Temp 97.8(TE); Pulse Ox 98% on R/A; Weight 146.06 kg jd3 (R); Height 6 ft. 0 in. (182.88 cm) (R); Pain 5/10; 20:04 BP 162 / 88; Pulse 63; Resp 16; Pulse Ox 98% on R/A; jm8 18:24 Body Mass Index 43.67 (146.06 kg, 182.88 cm) jd3 ED Course: 18:12 Patient arrived in ED. am2 18:18 Triage completed. jd3 18:25 Arm band placed on. jd3 18:27 Tez Webster MD is Attending Physician. [facility] 18:37 Jessie Madrid RN is Primary Nurse. tr6 18:48 Initial lab(s) drawn, by mo, sent to lab. Inserted saline lock: 20 gauge in right dh3 antecubital area, using aseptic technique. 19:01 EKG done, by ED staff, reviewed by Tez Webster MD. [facility] 19:05 XRAY Chest (1 view) In Process Unspecified. EDSC 19:09 Urine Culture Sent. [facility] 19:51 Meng Gudino MD is Referral Physician. [facility] 19:59 Patient has correct armband on for positive identification. Bed in low position. Call jm8 light in reach. Side rails up X2. Adult w/ patient. 20:57 No provider procedures requiring assistance completed. IV discontinued, intact, jm8 bleeding controlled. Administered Medications: 19:13 Drug: NS 0.9% 500 ml Route: IV; Rate: bolus; Site: right antecubital; tr6 19:13 Drug: NS 0.9% 1000 ml Route: IV; Rate: 125 ml/hr; Site: right antecubital; tr6 19:51 Drug: NS 0.9% 1000 ml Route: IV; Rate: 1 bolus; Site: right antecubital; 8 19:52 Drug: Magnesium Sulfate 1 grams Route: IVPB; Infused Over: 1 hrs; Site: right 8 antecubital; Outcome: 19:52 Discharge ordered by . [facility] 20:57 Discharged to home ambulatory, with family. [facility] 20:57 Condition: good 20:57 Discharge instructions given to patient, family, Instructed on discharge instructions, follow up and referral plans. medication usage, Demonstrated understanding of instructions, follow-up care, medications. 20:58 Patient left the ED. [facility] Signatures: Dispatcher [employer] EDSC Tez Webster MD MD cha Broussard, Jennifer jb5 Marissa Boggs amCyn Winkler 3 Peter Soares RN RN jd3 Malcaba, Joseph, RN RN jm8 Jessie Madrid, KIA RN tr6 Corrections: (The following items were deleted from the chart) 18:24 18:16 Chief complaint: Patient states: "the clinic where I work suggested that I come jnayana and get seen for my kidneys to make sure they are working right. their diagnosis was heat exposer, but I never stopped sweating so she wanted me to come and make sure my kidneys were working ok." [facility] 18:25 18:24 Pulse 76bpm; Resp 17bpm; Spontaneous; Pulse Ox 98% RA; Temp 97.8F Temporal; jd3 146.06 kg Reported; Height 6 ft. 0 in. Reported; BMI: 43.6; Pain 5/10; jd3 18:26 18:24 Pulse 76bpm; Resp 17bpm; Spontaneous; Pulse Ox 98% RA; Temp 97.8F Temporal; jd3 146.06 kg Reported; Height 6 ft. 0 in. Reported; BMI: 43.6; Pain 5/10; jd3
[2020-09-01 21:05] VITALS: TEMP 97.8; O2SAT 98
[2020-09-01 21:06] VITALS: BP 162/88
--- NOTE | 2020-09-02 07:37 | EKG ---
Test Date: 2020-09-01 Test Time: 18:55:44 Color Control Supervisor: TAYLOR MEASUREMENT RESULTS: Intervals: Rate: 66 MO: 176 QRSD: 100 QT: 446 QTc: 467 [place]: P: 45 MO: 176 QRS: -3 T: 38 INTERPRETIVE STATEMENTS: Normal sinus rhythm Moderate voltage criteria for LVH, may be normal variant Borderline ECG Compared to ECG 08/19/2019 11:31:46 No significant changes Electronically Signed On 09-02-20 07:35:50 CDT by Meng Gudino
== END 2020-09-01 20:58 | disposition home or self-care (01) ==
LOC: ER 18:11
DX: T67.5XXA Heat exhaustion, unspecified, initial encounter (principal); E83.42 Hypomagnesemia; I51.7 Cardiomegaly; I10 Essential (primary) hypertension; Z79.01 Long term (current) use of anticoagulants; Z79.82 Long term (current) use of aspirin; Z95.0 Presence of cardiac pacemaker
CPT/HCPCS: 36415; 71045; 80048; 80076; 81003; 82550; 82553; 83690; 83735; 83880; 84484; 85025; 85610; 87086; 87088; 93005

== ENCOUNTER 2020-11-05 10:03 | Observation (INO) | payer BC ==
--- OUTSIDE RECORDS SUMMARY | 2020-11-05 10:06 | XMS REPORT | Continuity of Care Document ---
:1960 Author Organization [facility] t Address [address] [place] [address] Care Team Providers Name Role Phone Radiology Attending Clinician Unavailable Jonathan SANDRA Attending Clinician Doctor Unassigned, Name Attending Clinician Unavailable Problems This patient has no known problems. Allergies, Adverse Reactions, Alerts This patient has no known allergies or adverse reactions. Medications Ordered Filled Start Stop Current Ordering Indication Dosage Frequency Signature Comments Components Source Medication Medication Date Date Medication? Clinician (SIG) Name Name Metoprolol Metoprolol Yes Chhaya [address] [facility] Tartrate Tartrate [place] with food [facility]ics Magnesium Magnesium Yes Chhaya as [facility] Abiel directed [facility] Eliquis 5 Eliquis 5 Yes Chhaya one [facility] mg mg [facility] Lisinopril Lisinopril Yes Chhaya [address] [facility] [place] [facility] Pantoprazol Pantoprazol Yes Chhaya [address] [facility] e Sodium e Sodium [facility]iel [facility] Amlodipine Amlodipine Yes Chhaya [address] [facility] Besylate Besylate [facility] Hydrocodone Hydrocodone Yes Chhaya [address] [facility] -Acetaminop -Acetaminop [place] as needed [facility] Tamsulosin Tamsulosin Yes Chhaya [address] [facility] HCl HCl [facility] Meloxicam Meloxicam Yes Chhaya [address] [facility] Procedures This patient has no known procedures. Encounters Start End Encounter Admission Attending Care Care Encounter Source Date/Time Date/Time Type Type Clinicians Facility Department ID 2019-01-10 Outpatient [id number] MH 08:23:13 [facility] 2020-10-29 2020-10-29 Outpatient [facility] [id number] [facility]00 [facility] Clinics 2020-09-17 2020-09-17 Outpatient [facility] [id number] [facility]00 [facility] ent [facility] 2020-04-03 2020-04-03 Hospital Radiology [facility] [id number] 07:54:54 23:59:00 Encounter [place] [id number] [place] [id number] [place] [address] [place] [id number] 2019-08-09 2019-08-09 Refill [facility] [id number] 00:00:00 00:00:00 Amilcardiana [place] [id number] [place] [id number] [facility] [id number] [address] 2019-08-04 2019-08-04 Refill [facility] [id number] 00:00:00 00:00:00 Amilcar [place] [id number] [place] [id number] Surgical [id number] Holiday 07 2019-06-28 2019-06-28 Office [facility] [id number] 10:18:35 11:44:02 Visit Amilcar [place] [id number] [place] [id number] Profess[facility] [id number] [address] 2019-06-28 2019-06-28 Orders Doctor JHON [id number] 00:00:00 00:00:00 Only Unassigned, [facility] [id number] [place] [facility] [id number] 2019-04-19 2019-04-19 Outpatient Kam Deleon [id number] [facility] 11:15:[facility] 11:15:00 t Specialty/[facility] l Clinic Outpati ent Clinics Results This patient has no known results.
[2020-11-05 11:10] LABS: Absolute Lymphocytes (CBC) 1.3 K/uL (0.7-4.9); Basophils % 0.6 % (0-1.3); Hematocrit 40.3 % (39.6-49.0); Lymphocytes % 15.8 % (15.3-44.8); MPV 7.9 fL (7.6-11.3); RBC Red Blood Cell Count 4.25 M/uL (4.33-5.43)
[2020-11-05 11:22] LABS: Protime INR 1.31
[2020-11-05 11:34] LABS: ALT/SGPT 26 U/L (12-78); AST/SGOT 17 U/L (15-37); Albumin 3.8 g/dL (3.4-5.0); Alkaline Phosphatase 74 U/L (45-117); BUN Blood Urea Nitrogen 19 mg/dL (7-18); Bicarbonate 28 mmol/L (21-32); Bilirubin Direct 0.2 mg/dL (0-0.2); Bilirubin Total 0.5 mg/dL (0.2-1.0); Glucose Level 89 mg/dL (74-106); Magnesium 1.7 mg/dL (1.8-2.4); NT PRO-BNP 99 pg/mL (<125); Protein, Total 7.7 g/dL (6.4-8.2); Sodium Level 140 mmol/L (136-145); Troponin (Emerg Dept Use Only) < 0.02 ng/mL (0.0-0.045)
--- NOTE | 2020-11-05 12:28 | RAD REPORT ---
EXAM DESCRIPTION: CT - Chest For Pe Angio - 11/05/2020 12:07 pm CLINICAL HISTORY: Chest pain COMPARISON: None. TECHNIQUE: Dynamically enhanced axial 3 mm thick images of the chest were obtained during administra tion of <100> mL Isovue 370 IV contrast. Coronal and oblique reconstruction images were generated and reviewed. Exam utilizes a protocol for optimal evaluation of pulmonary arterial tree. Maximum intensity projections 3D imaging was utilized All CT scans are performed using dose optimization technique as appropriate and may include automated exposure control or mA/KV adjustment according to patient size. FINDINGS: A pulmonary embolus is not seen. A thoracic aortic aneurysm is not noted. A pleural effusion is not seen. A pericardial effusion is not seen. Mild bilateral ground-glass opacities within the lungs IMPRESSION: Negative for a pulmonary embolism. Mild bilateral ground-glass opacities within the lungs indicative of a mild alveolitis
--- NOTE | 2020-11-05 12:46 | RAD REPORT ---
EXAM DESCRIPTION: RAD - Chest Single View - 11/05/2020 12:40 pm CLINICAL HISTORY: CHEST PAIN Chest pain. COMPARISON: Chest Single View dated 09/01/2020; Chest Single View dated 08/19/2019; Chest Pa And Lat (2 Views) dated 04/24/2018; ABDOMEN 1 VIEW KUB dated 06/16/2011 FINDINGS: Portable technique limits examination quality. The lungs are grossly clear. The heart is normal in size. No displaced fractures.Dual lead pacer alba ce is present. IMPRESSION: No acute intrathoracic process suspected.
--- NOTE | 2020-11-05 14:31 | ER ---
Nurse's Notes [facility] Name: Keo Richards Age: 60 yrs Sex: Male : 1960 Arrival Date: 11/05/2020 Time: 10:05 Bed 15 Private MD: Freddie Clayton E Diagnosis: Chest pain, unspecified Presentation: 11/05 10:34 Chief complaint: Patient states: Short of breath 4-5 weeks with CP today. Coronavirus da3 screen: Client denies travel out of the [place] in the last 14 days. Ebola Screen: No symptoms or risks identified at this time. Risk Assessment: Do you want to hurt yourself or someone else? Patient reports no desire to harm self or others. 10:34 Method Of Arrival: Ambulatory da3 10:34 Acuity: KATHRYN 4 da3 10:45 Acuity: KATHRYN 3 da3 13:51 Initial Sepsis Screen: Does the patient meet any 2 criteria? No. Patient's initial tr6 sepsis screen is negative. Does the patient have a suspected source of infection? No. Patient's initial sepsis screen is negative. Onset of symptoms is unknown. Triage Assessment: 10:38 General: Appears in no apparent distress. comfortable. da3 13:51 General: Behavior is calm, cooperative, appropriate for age. Pain: Complains of pain in tr6 chest. EENT: No deficits noted. Neuro: No deficits noted. Cardiovascular: Reports chest pain. Respiratory: No deficits noted. GI: No deficits noted. Abdomen is round distended, obese. : No deficits noted. Derm: No deficits noted. Musculoskeletal: No deficits noted. Historical: - Allergies: 10:37 No Known Allergies; da3 - Immunization history:: 1 Shot Juliocesar \T\ Juliocesar. - Social history:: Smoking status: unknown. Screenin:50 Abuse screen: Denies threats or abuse. Denies injuries from another. Nutritional tr6 screening: No deficits noted. Tuberculosis screening: No symptoms or risk factors identified. Fall Risk None identified. Assessment: 13:49 General: Appears in no apparent distress. comfortable, Behavior is calm, cooperative, tr6 appropriate for age. Pain: Complains of pain in chest Pain does not radiate. Pain began gradually, Is intermittent. Neuro: No deficits noted. Cardiovascular: Reports chest pain. Respiratory: No deficits noted. GI: Abdomen is round distended, obese. : No deficits noted. EENT: No deficits noted. Derm: No deficits noted. Musculoskeletal: No deficits noted. Vital Signs: 10:36 BP 145 / 91; Pulse 63; Resp 18; Temp 97.9; Pulse Ox 97% on R/A; da3 13:49 BP 138 / 126; Pulse 76; Resp 18; Pulse Ox 96% on R/A; tr6 16:16 BP 156 / 89; Pulse 60; Resp 18; Pulse Ox 100% on R/A; tr6 ED Course: 10:05 Patient arrived in ED. mr 10:05 Freddie Clayton MD is Private Physician. mr 10:36 Triage completed. da3 10:55 Marcos Kumar PA is PHCP. m 10:56 Enrike Salgado MD is Attending Physician. jmm 12:07 CT Chest For PE Angio In Process Unspecified. EDMS 12:40 XRAY Chest (1 view) In Process Unspecified. EDMS 13:45 Jessie Madrid RN is Primary Nurse. tr6 13:50 Resting quietly. tr6 13:50 No provider procedures requiring assistance completed. Inserted saline lock: 20 gauge tr6 in left antecubital area, using aseptic technique. Patient maintains SpO2 saturation greater than 95% on room air. 13:50 Patient has correct armband on for positive identification. Bed in low position. Call tr6 light in reach. Side rails up X2. radiology physician on. Pulse ox on. NIBP on. Door closed. Noise minimized. Visitors limited. Lights dimmed. Moved to private room. 13:51 Initial lab(s) drawn, by ED staff, EKG done, by dispensary technician. COVID swab sent to lab. [facility] 14:30 Scott De Jesus MD is Hospitalizing Provider. [facility] 16:49 Patient admitted, IV remains in place. tr6 Administered Medications: No medications were administered Outcome: 14:30 Decision to Hospitalize by Provider. [facility] 16:49 [address] [facility] 16:49 Condition: stable 16:49 Instructed on the need for admit. 11/06 00:25 Patient left the ED. ch4 Signatures: Dispatcher [employer] EDMS Marcos Kumar PA PA jade MichaelKaruna Eleanor Luo [facility] Jessie Madrid, RN RN [facility] Jarrett Merrill, RN RN da3 Billie Trujillo, KIA RN ch4 Corrections: (The following items were deleted from the chart) 11/05 13:54 13:37 CORONAVIRUS+ drawn and sent. [address]
--- NOTE | 2020-11-05 14:31 | EDPHYS ---
Physician Documentation [facility] [place], [place] Name: Keo Richards Age: 60 yrs Sex: Male : 1960 Arrival Date: 11/05/2020 Time: 10:05 Bed 15 Private MD: Freddie Clatyon E ED Physician Enrike Salgado HPI: 11/05 14:27 This 60 yrs old Male presents to ER via Ambulatory with complaints of Chest jmm Pain, Shortness Of Breath, Congestion. 14:27 The patient has shortness of breath at rest. Onset: The symptoms/episode began/occurred jmm gradually, 4 week(s) ago. The patient's shortness of breath is aggravated by nothing, is alleviated by nothing. Associated signs and symptoms: Pertinent negatives: fever. The patient has not experienced similar symptoms in the past. Historical: - Allergies: 10:37 No Known Allergies; da3 - Immunization history:: 1 Shot Juliocesar \T\ Juliocesar. - Social history:: Smoking status: unknown. ROS: 14:27 Constitutional: Negative for fever, chills, and weight loss. jmm 14:27 Cardiovascular: Positive for chest pain. 14:27 Respiratory: Positive for shortness of breath. 14:27 All other systems are negative. Exam: 14:27 Constitutional: This is a well developed, well nourished patient who is awake, alert, jmm and in no acute distress. Head/Face: atraumatic. Eyes: EOMI, no conjunctival erythema appreciated ENT: Moist Mucus Membranes Neck: Trachea midline, Supple Chest/axilla: Normal chest wall appearance and motion. 14:27 Abdomen/GI: Non distended, soft Back: Normal ROM Skin: General appearance color normal MS/ Extremity: Moves all extremities, no obvious deformities appreciated, no edema noted to the lower extremities Neuro: Awake and alert, normal gait Psych: Behavior is normal, Mood is normal, Patient is cooperative and pleasant 14:27 Cardiovascular: Rate: normal, Rhythm: regular, Pulses: no pulse deficits are appreciated. Vital Signs: 10:36 BP 145 / 91; Pulse 63; Resp 18; Temp 97.9; Pulse Ox 97% on R/A; da3 13:49 BP 138 / 126; Pulse 76; Resp 18; Pulse Ox 96% on R/A; tr6 16:16 BP 156 / 89; Pulse 60; Resp 18; Pulse Ox 100% on R/A; tr6 MDM: 10:56 Patient medically screened. [facility] 14:29 Data reviewed: vital signs, nurses notes. Counseling: I had a detailed discussion with nellie the patient and/or guardian regarding: the historical points, exam findings, and any diagnostic results supporting the discharge/admit diagnosis, lab results, the need for further work-up and treatment in the hospital. ED course: I discussed the patient with Dr. Myers whom accepted the patient for admission. . 11/05 10:42 Order name: Basic Metabolic Panel; Complete Time: 11:35 11/05 10:42 Order name: CBC with Diff; Complete Time: 11:32 11/05 10:42 Order name: LFT's; Complete Time: 11:35 11/05 10:42 Order name: Magnesium; Complete Time: 11:35 11/05 10:42 Order name: NT PRO-BNP; Complete Time: 11:35 11/05 10:42 Order name: PT-INR; Complete Time: 11:32 11/05 10:42 Order name: Troponin (emerg Dept Use Only); Complete Time: 11:35 11/05 14:55 Order name: SARS-COV-2 RT PCR; Complete Time: 15:17 [facility] 11/05 15:13 Order name: CKMB Creatine Kinase MB [facility] 11/05 15:13 Order name: CKMB Creatine Kinase MB; Complete Time: 17:20 [facility] 11/05 15:13 Order name: CKMB Creatine Kinase MB; Complete Time: 07:01 [facility] 11/05 15:13 Order name: CKMB Creatine Kinase MB; Complete Time: 07:01 [facility] 11/05 15:13 Order name: Creatine Phosphokinase [facility] 11/05 10:42 Order name: XRAY Chest (1 view); Complete Time: 12:52 11/05 10:42 Order name: EKG; Complete Time: 10:43 11/05 10:42 Order name: Cardiac monitoring; Complete Time: 13:37 11/05 11:36 Order name: CT Chest For PE Angio; Complete Time: 12:30 [facility] 11/05 15:14 Order name: CONS Physician Consult [facility] 11/05 15:14 Order name: Heart Healthy [facility] 11/05 15:14 Order name: Creatine Phosphokinase; Complete Time: 17:20 [facility] 11/05 15:14 Order name: Creatine Phosphokinase; Complete Time: 07:01 [facility] 11/05 15:14 Order name: Creatine Phosphokinase; Complete Time: 07:01 [facility] 11/05 15:14 Order name: Lipid Profile [facility] 11/05 15:14 Order name: Lipid Profile; Complete Time: 07:01 [facility] 11/05 15:14 Order name: Troponin I [facility] 11/05 15:14 Order name: Troponin I; Complete Time: 17:20 [facility] 11/05 15:14 Order name: Troponin I; Complete Time: 07:01 [facility] 11/05 15:14 Order name: Troponin I; Complete Time: 07:01 [facility] 11/05 15:49 Order name: Urine Dipstick-Ancillary; Complete Time: 16:41 [facility] 11/05 10:42 Order name: EKG - Nurse/Tech; Complete Time: 13:37 ss 11/05 10:42 Order name: IV Saline Lock; Complete Time: 13:37 ss 11/05 10:42 Order name: Labs collected and sent; Complete Time: 13:37 ss 11/05 10:42 Order name: O2 Per Protocol; Complete Time: 13:37 ss 11/05 10:42 Order name: O2 Sat Monitoring; Complete Time: 13:37 ss 11/05 15:33 Order name: Labs - recollect needed: light green; Complete Time: 16:47 mt Administered Medications: No medications were administered Disposition Summary: 11/05/20 14:30 Hospitalization Ordered Hospitalization Status: Observation [facility] Provider: Scott De Jesus Location: Telemetry/MedSur (observation) [facility] Condition: Stable [facility] Problem: new [facility] Symptoms: are unchanged [facility] Bed/Room Type: Standard [facility] Room Assignment: 205(11/05/20 23:47) Diagnosis - Chest pain, unspecified [facility] Forms: - Medication Reconciliation Form [facility] - SBAR form [facility] Addendum: 11/09/2020 07:01 Co-signature as Attending Physician, Enrike Salgado MD I agree with the assessment and r n plan of care. Attestation: The patient's history, exam findings, diagnostics, and a summary of any interventions or procedures was reviewed in detail with Marcos BLANK. Signatures: Dispatcher [employer] EDMS Marcos Kumar PA PA [facility] Enrike Salgado MD MD rn Smirch, Shelby, RN RN Radha Perla RN RN cg Thompson, Moriah mt Ramnanan, Tiffany, RN RN tr6 Jarrett Merrill RN RN da3 Corrections: (The following items were deleted from the chart) 11/05 13:54 12:31 CORONAVIRUS+MR.LAB.BRZ ordered. EDMS EDMS 23:47 14:30 nellie goddard
[2020-11-05] MEDS ORDERED: ZOLPIDEM TARTRATE 5 MG TABLET PO PRN (15:09)
[2020-11-05] MEDS ORDERED: ONDANSETRON 4 MG/2 ML VIAL IV PRN (15:09)
[2020-11-05] MEDS ORDERED: ACETAMINOPHEN 500 MG TAB PO PRN (15:09)
[2020-11-05] MEDS ORDERED: MORPHINE 2 MG/ML SYR IV PRN (15:14)
[2020-11-05] MEDS ORDERED: NITROGLYCERIN 0.4 MG/TAB SL ONE (15:17)
[2020-11-05] MEDS ORDERED: NITROGLYCERIN 0.4 MG/TAB SL PRN (15:22)
--- NOTE | 2020-11-05 15:33 | P.HP ---
Certification for Inpatient Patient admitted to: Observation Patient will require the following post-hospital care: None Practitioner: I am a practitioner with admitting privileges, knowledge of patient current condition, hospital course, and medical plan of care. Services: Services provided to patient in accordance with Admission requirements found in Title 42 Section 412.3 of the Code of Federal Regulations Patient History Date of Service: 11/05/20 Primary Care Provider: Dr Clayton. Reason for admission: Chest pain. History of Present Illness: 60 y o male pt with hx of chronic A fib, HTN, admitted for chest pain work up. He had c/o chest pain for the past 2 weeks but this got worse today. he does have some tightness on deep breathing and at rest. No radiation of pain to the jaw or neck region. pain is rated 3/10 in intensity. No issues with dizziness, fever, chills, cough or night sweats. No loss of appetite or n/v. His Chest xray was negative for acute process and CTA pulm was also negative for PE. His rapid covid test was negative. He was asked to be admitted for chest pain work up. Allergies No Known Allergies Allergy (Unverified 05/26/11 06:22) Home Medications: Amiodarone HCl [Cordarone*] 200 mg PO DAILY 08/20/19 Apixaban [Eliquis] 5 mg PO BID 08/20/19 Ergocalciferol (Vitamin D2) [Vitamin D2] 50 mcg PO DAILY 08/20/19 Furosemide [Lasix*] 40 mg PO SEECOM 08/20/19 Magnesium Oxide [Magnesium] 400 mg PO DAILY #30 capsule 08/20/19 Potassium Chloride 20 meq PO SEECOM 08/20/19 - Past Medical/Surgical History Diabetic: No -: HTN -: Kidney stones -: Pacemaker -: Afib - Social History Alcohol use: No CD- Drugs: No Caffeine use: Yes Review of Systems General: Chills Eyes: Unremarkable ENT: Unremarkable Respiratory: Cough, Pleuritic Pain Cardiovascular: Chest Pain Gastrointestinal: Unremarkable Genitourinary: Unremarkable Musculoskeletal: Unremarkable Integumentary: Unremarkable Neurological: Unremarkable Lymphatics: Unremarkable Physical Examination - Vital Signs Temperature: 98.8 F Blood Pressure: 140/70 Pulse: 72 Respirations: 14 Pulse Ox (%): 99 - Physical Exam General: Alert, Oriented x3, Cooperative HEENT: Atraumatic, Normocephalic Neck: Supple Respiratory: Clear to auscultation bilaterally Cardiovascular: No edema, Regular rate/rhythm, Normal S1 S2 Gastrointestinal: Soft and benign Musculoskeletal: No swelling Neurological: Normal speech, Normal strength at 5/5 x4 extr, Normal tone, Cranial nerves 3-12 intact - Studies Laboratory Data (last 24 hrs) 11/05/20 10:55: PT 15.1 H, INR 1.31 11/05/20 10:55: WBC 8.00, Hgb 13.7, Hct 40.3, Plt Count 334 11/05/20 10:55: Sodium 140, Potassium 4.0, BUN 19 H, Creatinine 1.07, Glucose 89, Magnesium 1.7 L, Total Bilirubin 0.5, AST 17, ALT 26, Alkaline Phosphatase 74 Assessment and Plan - Plan Chest pain: episode of chest pain is concerning for ACS. We will trend troponin and CKMB. we will continue on telemetry. we will start morphine and tylenol for pain control. we will also use prn nitroglycerin for additional pain control and start aspirin therapy. we will obtain lipid panel in am. we will have cardiology evaluate for possible stress test/LHC. Hypertension: we will monitor vitals per unit protocol and continue anti hypertensive meds. Chronic A fib: we will continue amiodarone and eliquis. Discharge Plan: Home - Advance Directives Does patient have a Living Will: No Does patient have a Durable POA for Healthcare: No - Code Status/Comfort Care Code Status: Full Code
[2020-11-05 15:48] LABS: Urine Blood Negative (Negative); Urine Glucose Negative (Negative); Urine Protein Negative (Negative); Urine pH 6.5 (5.0-7.0)
[2020-11-05] MEDS: ENOXAPARIN 40 MG/0.4 ML SQ SCH (16:00)
[2020-11-05 17:20] LABS: CKMB Creatine Kinase MB 2.1 ng/mL (1.0-3.6); Creatine Phosphokinase 131 U/L (39-308); Troponin I < 0.02 ng/mL (0.0-0.045)
[2020-11-05] MEDS ORDERED: ENOXAPARIN 40 MG/0.4 ML SQ ONE (20:24)
[2020-11-06 00:03] LABS: CKMB Creatine Kinase MB 1.6 ng/mL (1.0-3.6); Creatine Phosphokinase 105 U/L (39-308); Troponin I < 0.02 ng/mL (0.0-0.045)
[2020-11-06 01:03] VITALS: BMI 43.0
[2020-11-06 02:49] VITALS: O2SAT 100
[2020-11-06 08:43] LABS: CKMB Creatine Kinase MB 1.3 ng/mL (1.0-3.6); Creatine Phosphokinase 90 U/L (39-308); Troponin I < 0.02 ng/mL (0.0-0.045)
--- NOTE | 2020-11-06 08:48 | P.PN ---
Subjective Date of Service: 11/06/20 Primary Care Provider: Dr Clayton. Chief Complaint: Chest pain. Subjective: No new changes, Improving Physical Examination - Vital Signs Temperature: 97.4 F Blood Pressure: 124/62 Pulse: 61 Respirations: 18 Pulse Ox (%): 97 - Physical Exam General: Alert, Oriented x3 HEENT: Atraumatic, Normocephalic Neck: Supple Respiratory: Clear to auscultation bilaterally Cardiovascular: Regular rate/rhythm, Normal S1 S2 Gastrointestinal: Soft and benign Musculoskeletal: No swelling Neurological: Normal strength at 5/5 x4 extr, Cranial nerves 3-12 intact - Studies Laboratory Data (last 24 hrs) 11/05/20 10:55: PT 15.1 H, INR 1.31 11/05/20 10:55: WBC 8.00, Hgb 13.7, Hct 40.3, Plt Count 334 11/05/20 10:55: Sodium 140, Potassium 4.0, BUN 19 H, Creatinine 1.07, Glucose 89, Magnesium 1.7 L, Total Bilirubin 0.5, AST 17, ALT 26, Alkaline Phosphatase 74 Assessment And Plan - Plan Chest pain: episode of chest pain is concerning for ACS. We will trend troponin and CKMB. we will continue on telemetry. we will start morphine and tylenol for pain control. we will also use prn nitroglycerin for additional pain control and start aspirin therapy. we will obtain lipid panel in am. we will have cardiology evaluate for possible stress test/LHC. Hypertension: we will monitor vitals per unit protocol and continue antihypertensive meds. Chronic A fib: we will continue amiodarone and eliquis.
[2020-11-06] MEDS: ENOXAPARIN 40 MG/0.4 ML SQ SCH (09:00)
[2020-11-06] MEDS ORDERED: ASPIRIN 81 MG CHEWABLE TABLET PO SCH (09:00)
--- NOTE | 2020-11-06 11:51 | P.DS ---
Admission Date: 11/05/20 Discharge Date: 11/06/20 Primary Care Provider: Dr Clayton. Disposition: ROUTINE DISCHARGE Discharge Condition: GOOD Reason for Admission: Chest pain. Brief History of Present Illness: 60 y o male pt with hx of chronic A fib, HTN, admitted for chest pain work up. He had c/o chest pain for the past 2 weeks but this got worse today. he does have some tightness on deep breathing and at rest. No radiation of pain to the jaw or neck region. pain is rated 3/10 in intensity. No issues with dizziness, fever, chills, cough or night sweats. No loss of appetite or n/v. His Chest xray was negative for acute process and CTA pulm was also negative for PE. His rapid covid test was negative. He was asked to be admitted for chest pain work up. Hospital Course: 60 y o male pt with hx of A fib, HTN, admitted for management of chest pain. he was monitored on telemetry and he had cardiac markers trended. this was found to be normal and his telemetry revealed no significant abnormalities. he was evaluated by cardiology and madisyn is plans for outpt cardiac stress test in the coming week. His CP was deemed musculoskeletal in nature as it was pleuritic in nature. he is to continue routine medications for his chronic health condition. Vital Signs/Physical Exam: Temp Pulse Resp BP Pulse Ox 97.4 F 61 18 124/62 97 11/06/20 08:48 11/06/20 08:48 11/06/20 08:48 11/06/20 08:48 11/06/20 08:48 General: Alert, Oriented x3 HEENT: Atraumatic, Normocephalic Neck: Supple Respiratory: Clear to auscultation bilaterally Cardiovascular: Regular rate/rhythm, Normal S1 S2 Gastrointestinal: Soft and benign Musculoskeletal: No swelling Neurological: Normal gait, Normal speech, Normal strength at 5/5 x4 extr, Cranial nerves 3-12 intact Laboratory Data at Discharge: WBC 8.00 K/uL (4.3-10.9) 11/05/20 10:55 Hgb 13.7 g/dL (13.6-17.9) 11/05/20 10:55 Hct 40.3 % (39.6-49.0) 11/05/20 10:55 Plt Count 334 K/uL (152-406) 11/05/20 10:55 PT 15.1 SECONDS (9.5-12.5) H 11/05/20 10:55 INR 1.31 11/05/20 10:55 Sodium 140 mmol/L (136-145) 11/05/20 10:55 Potassium 4.0 mmol/L (3.5-5.1) 11/05/20 10:55 BUN 19 mg/dL (7-18) H 11/05/20 10:55 Creatinine 1.07 mg/dL (0.55-1.3) 11/05/20 10:55 Glucose 89 mg/dL (74-106) 11/05/20 10:55 Magnesium 1.7 mg/dL (1.8-2.4) L 11/05/20 10:55 Total Bilirubin 0.5 mg/dL (0.2-1.0) 11/05/20 10:55 AST 17 U/L (15-37) 11/05/20 10:55 ALT 26 U/L (12-78) 11/05/20 10:55 Alkaline Phosphatase 74 U/L (45-117) 11/05/20 10:55 Troponin I < 0.02 ng/mL (0.0-0.045) 11/06/20 08:13 Triglycerides 61 mg/dL (<150) 11/06/20 05:36 Cholesterol 174 mg/dL (<200) 11/06/20 05:36 HDL Cholesterol 54 mg/dL (40-60) 11/06/20 05:36 Cholesterol/HDL Ratio 3.22 11/06/20 05:36 Home Medications: Amiodarone HCl [Cordarone*] 200 mg PO DAILY 08/20/19 Apixaban [Eliquis] 5 mg PO BID 08/20/19 Potassium Chloride 20 meq PO SEECOM 08/20/19 Amlodipine [Norvasc*] 1 tab PO SEECOM 11/06/20 Aspirin 85 Mg 85 mg PO SEECOM 11/06/20 Ferrous Gluconate [Iron] 65 mg PO BEDTIME 11/06/20 Furosemide [Lasix*] 1 tab PO SEECOM 11/06/20 Magnesium Citrate 500 mg PO BID 11/06/20 Meloxicam [Mobic] 1 tab PO DAILY 11/06/20 Tamsulosin [Flomax*] 1 cap PO DAILY 11/06/20 Tramadol HCl [Ultram] 1 tab PO PRN PRN 11/06/20 Vit B 12 2,000 mg PO BEDTIME 11/06/20 Vit D 2000 2,000 units PO DAILY 11/06/20 Diet: AHA Followup: Freddie Clayton MD [Primary Care Provider] -
[2020-11-06 12:35] VITALS: BP 137/88; TEMP 97.8
--- NOTE | 2020-11-07 22:01 | CON ---
Date of Consultation: 11/06/2020 Reason For Consultation: Chest pain. History Of Present Illness: Mr. Richards is a 60-year-old white male. I have seen him in my office and had actually planned to do a stress test on him and an echocardiogram down the road in November . He was admitted to Dr. De Jesus on 11/05/2020 with shortness of breath, congestion, and chest pain . The chest pain is more mid epigastric, radiating to the back and bilateral chest. No arm radiatio n. No jaw radiation. Pain is exertional and nonexertional. No nausea, vomiting, diaphoresis, PND, orthopnea, pedal edema, palpitations, or syncope. Normal EKG, normal x-ray, normal troponin, normal BNP, normal CPKs and MBs. Past Medical History: Positive for atrial fibrillation, anemia, benign prostatic hypertrophy, and hy pertension. Allergies: NONE. Review of Systems: Negative. Social History: Negative. Family History: Noncontributory. Physical Examination: Vital Signs: Stable. Afebrile. HEENT: Negative. Neck: Supple. No bruit. Chest: Clear to auscultation and percussion. Cardiac: Revealed a regular rhythm and rate. No murmurs, gallops, or rubs. Abdomen: Obese, but benign. Extremities: Revealed no clubbing, cyanosis, or edema. Diagnostic Data: Normal. Impression And Plan: 1.Atrial fibrillation and sinus rhythm, on amiodarone and Eliquis. 2.Hypertension, on Norvasc. 3.Anemia, on iron. 4.Benign prostatic hypertrophy. 5.Obesity. Mr. Richards can go home. He is pain free. He has ruled out for an NH. I will speed up his stress test and his echocardiogram. I prefer he have an MPI and an echo and see me in the near future. He can go home, otherwise. JO/MODL Voice ID: [id number] Report ID: [id number]
== END 2020-11-06 12:46 | disposition home or self-care (01) ==
LOC: ER 10:03 → ERHOLD 15:09 → 2ND 23:50
PROVIDERS: ADMIT Internal Medicine Nephrology; ATTEND Internal Medicine Nephrology
DX: R07.89 Other chest pain (principal); I48.20 Chronic atrial fibrillation, unspecified; I10 Essential (primary) hypertension; D64.9 Anemia, unspecified; N40.0 Benign prostatic hyperplasia without lower urinary tract symptoms; E66.9 Obesity, unspecified; Z68.41 Body mass index [BMI] 40.0-44.9, adult; Z95.0 Presence of cardiac pacemaker; Z79.01 Long term (current) use of anticoagulants; Z20.822 Contact with and (suspected) exposure to COVID-19
CPT/HCPCS: 93005; 85025; 80048; 36415; 83735; 82550 ×3; 85610; 80061; 80076; 81003; 84484 ×4; 82553 ×3; 83880; 71275; 71045; 99285; U0003; Q9967; J1650 ×2; G0378 ×2

== ENCOUNTER 2020-11-19 06:56 | Day surgery (SDC) | payer BC ==
[2020-11-17 14:53] LABS: Protime INR 1.1
[2020-11-19] MEDS ORDERED: LIDOCAINE 1% 20 ML MDV ONE (07:17)
[2020-11-19] MEDS ORDERED: HEPA 1000U/500MLS 1,000 UNIT/500 ML BAG IV ONE (07:17)
[2020-11-19] MEDS ORDERED: NA CHLORIDE 0.9% 500 ML ONE (07:17)
[2020-11-19] MEDS ORDERED: FENTANYL CITR 100 MCG/2 ML ONE (07:44)
[2020-11-19] MEDS ORDERED: MIDAZOLAM HCL 2 MG/2 ML INJ ONE ×2 (07:44→07:58)
[2020-11-19] MEDS ORDERED: ATROPINE SULF 1 MG/10 ML SYR IV ONE (07:45)
[2020-11-19] MEDS ORDERED: NA CHLORIDE 0.9% 0 ML ONE (07:45)
--- NOTE | 2020-11-19 08:19 | OP ---
Date of Procedure: 11/19/2020 Surgeon: Meng Gudino MD Slab Conditioner Supervisor: Mr. Gaviria Procedures: Left heart catheterization and selective coronary arteriogram. Indications: Chest pain, unstable angina, positive stress test. Mr. Richards is 60, has a history of a pacemaker, has a history of paroxysmal atrial fibrillation, h ypertension, recently admitted to the hospital with chest pain. Outpatient stress test showed possib le apical ischemia and brought to the blood bank laboratory professional today as an outpatient, prepped and draped in routine sterile fashion, given Versed and fentanyl for sedation. Using the Seldinger technique, 10 cc of Xyl ocaine, a 6-Romanian sheath was introduced in the right common femoral artery. Angiography there was n ormal. Angio-Seal was used to close the case. Celine catheters, left and right were used to do the diagnostic catheterization. He had a very large ectatic RCA that was very dominant. His circumflex and left main were normal. LAD showed some mild diffuse plaquing throughout without any focal steno sis. The patient tolerated the procedure well. There were no complications. Blood loss was 5 mL. Postoperative Diagnosis: Mild coronary artery disease. Plan: For continued medical therapy. The patient will be at bedrest for 2 hours after his Angio-Sea l and he will go home, and I will see him in the office in the next 2 weeks. No change in medicine for now. Resume Andrea tomorrow. JO/NELIA Voice ID: [id number] Report ID: [id number]
[2020-11-19 10:11] VITALS: BP 113/70; TEMP 97.7; O2SAT 97
== END 2020-11-19 10:15 | disposition home or self-care (01) ==
LOC: CCL 06:56
DX: I25.110 Atherosclerotic heart disease of native coronary artery with unstable angina pectoris (principal); I48.0 Paroxysmal atrial fibrillation; I10 Essential (primary) hypertension; Z95.0 Presence of cardiac pacemaker; Z20.822 Contact with and (suspected) exposure to COVID-19
CPT/HCPCS: 36415; 85610; 85730; 93454; U0003; C1893; C1760; J2250 ×2; J3010; J7040; J1644; J0583

== ENCOUNTER 2022-09-07 11:50 | Emergency (ER) | payer BC ==
--- OUTSIDE RECORDS SUMMARY | 2022-09-07 11:53 | XMS REPORT | Continuity of Care Document ---
:1960 Author Organization [facility] t Address [address] [facility] [address] [place] [address] Care Team Providers Name Role Phone Freddie Clayton Primary Care Physician Freddie Clayton Attending Clinician Unavailable Susanna Dent DO Attending Clinician SUSANNA DENT Attending Clinician Unavailable SUSANNA DENT Attending Clinician Unavailable Therapist, Adc Respiratory Attending Clinician Unavailable Maurice Crane MD Attending Clinician MAURICE CRANE Attending Clinician Unavailable Only, Jose Miguel Test Attending Clinician Unavailable Matthias Guthrie MD Attending Clinician MATTHIAS GUTHRIE Attending Clinician Unavailable Doctor Unassigned, [place] Attending Clinician Unavailable Radiology Attending Clinician Unavailable RADIOLOGY Attending Clinician Unavailable Mary Loyola MD Attending Clinician MARY LOYOLA Attending Clinician Unavailable KOMAL GONZALEZ Attending Clinician Unavailable Freddie Clayton Admitting Clinician Unavailable MARY LOYOLA Admitting Clinician Unavailable KOMAL GONZALEZ Admitting Clinician Unavailable Payers Payer Name Policy Type Policy Number Effective Date Expiration Date S 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 [employer] C1 [id number] [facility] t [facility] Problems Condition Condition Condition Status Onset Resolution Last Treating Co mments Source Name Details Category Date Date Treatment Clinician Date Morbid Morbid Disease Active Univers obesity obesity 3-05 [place]y of [place] index mass index 00 Me dical of 50 or of 50 or Branch higher higher Right Right Disease Active Overview: Univer s ureteral ureteral 05-17 Formattin ity of stone stone 00:00: g of this [place] 00 note Medical might be Branch different from the original. Added automatic ally from request for surgery [id number] Arthritis Problem Active Co mmon [id number] of knee, [facility] right [facility] [id number] Bilateral Problem Active Com mon primary 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 knee [facility] Allergies, Adverse Reactions, Alerts This patient has no known allergies or adverse reactions. Social History Social Habit Start Date Stop Date Quantity Comments Source Sex Assigned At Common Sp kike - [facility] History of [facility] - Tobacco Use [facility] Exposure to Not sure University of SARS-CoV-2 [facility] (event) [place] Alcohol intake 2021-05-28 2021-05-28 Ex-drinker [facility] 00:00:00 00:00:00 (finding) [facility] Tobacco use and 2019-05-20 2019-05-20 Former user [facility] of exposure 00:00:00 00:00:00 [facility] Smoking Status Start Date Stop Date Source Former Smoker 2020-10-29 00:00:00 2020-10-29 00:00:00 [facility] S pirit [facility] Medications Ordered Filled Start Stop Current Ordering Indication Dosage Frequency Signature Comments Components Source Medication Medication Date Date Medication? Clinician (SIG) Name Name metoprolol Yes 12.5mg Take 12.5 Univers tartrate 25 3-11 mg by ity of mg tablet 08:57: mouth 2 [place] 39 (two) Medical times Branch daily. apixaban 5 Yes 5mg Take 5 mg Un luis f mg tablet 3-11 by mouth 2 ity of 08:57: (two) [place] 39 times Medical daily. Branch lisinopril Yes 10mg Take 10 mg U nivers 10 mg 3-11 by mouth ity of tablet 08:57: daily. [place] [address] Medical Branch furosemide 2021-0 Yes 40mg Take 40 mg U nivers 40 mg 3-11 by mouth 2 ity of tablet 08:57: (two) [place] 39 times per Medical week. Branch Cholecalcif 2021-0 Yes Take by Uni vers marlene, 3-11 mouth. ity of Vitamin D3, 08:57: [place] (VITAMIN [address] [place] [address] D3) 50 mcg [place] (2,000 unit) capsule aspirin 81 2021-0 Yes 81mg Take 81 mg U nivers mg chewable 3-11 by mouth ity of tablet 08:57: daily. [place] [address] Medical Branch metoprolol 2021-0 Yes 12.5mg Take 12.5 Univers tartrate 25 3-11 mg by ity of mg tablet 08:57: mouth 2 [place] [address] (two) Medical times Branch daily. apixaban 5 2021-0 Yes 5mg Take 5 mg Un luis f mg tablet 3-11 by mouth 2 ity of 08:57: (two) [place] [address] times Medical daily. Branch lisinopril 0 Yes 10mg Take 10 mg U nivers 10 mg 3-11 by mouth ity of tablet 08:57: daily. [address] Branch furosemide 2021-0 Yes 40mg Take 40 mg U nivers 40 mg 3-11 by mouth 2 ity of tablet 08:57: (two) [place] 39 times per Medical week. Branch Cholecalcif 0 Yes Take by Uni vers marlene, 3-11 mouth. ity of Vitamin D3, 08:57: [place] (VITAMIN [address] [place] [address] D3) 50 mcg [place] (2,000 unit) capsule aspirin 81 2021-0 Yes 81mg Take 81 mg U nivers mg chewable 3-11 by mouth ity of tablet 08:57: daily. [place] [address] Medical Branch albuterol 2021-0 Yes [id number] 2{puff} Inhale 2 Univers 90 1-07 Puffs ity of mcg/actuati 00:00: every 6 [place] as on inhaler 00 (six) Medical hours as Branch needed for Wheezing or Shortness of Breath. albuterol 2021-0 Yes [id number] 2{puff} Inhale 2 Univers 90 1-07 Puffs ity of mcg/actuati 00:00: every 6 [place] as on inhaler 00 (six) Medical hours as Branch needed for Wheezing or Shortness of Breath. oxybutynin 2020-0 Yes [id number] 5mg Take 1 U nivers chloride 5 4-02 tablet by ity of mg tablet 00:00: mouth 3 00 (three) Medical times Branch daily. For bladder spasms or stent pain. tamsulosin 2020-0 Yes [id number] .4mg Take 1 U nivers 0.4 mg 24 4-02 capsule by ity of hr capsule 00:00: mouth [place] 00 daily. Medical Branch oxybutynin 2020-0 Yes [id number] 5mg Take 1 U nivers chloride 5 4-02 tablet by ity of mg tablet 00:00: mouth 3 00 (three) Medical times Branch daily. For bladder spasms or stent pain. tamsulosin 2020-0 Yes [id number] .4mg Take 1 U nivers 0.4 mg 24 4-02 capsule by ity of hr capsule 00:00: mouth 00 daily. Medical Branch amiodarone 2020-0 Yes 200mg Take 200 Un luis f 200 mg 2-27 mg by ity of tablet 00:00: mouth 00 daily. Medical Branch amiodarone 2020-0 Yes 200mg Take 200 Un luis f 200 mg 2-27 mg by ity of tablet 00:00: mouth [place] 00 daily. Medical Branch Tamsulosin Tamsulosin Yes Chhaya 1 capsule Common HCl HCl [facility] Meloxicam Meloxicam Yes Chhaya 1 tablet Common [facility] Metoprolol Metoprolol Yes Chhaya 1 tablet Common Tartrate Tartrate [place] with food [facility] Magnesium Magnesium Yes Chhaya as Comm [facility] Eliquis 5 Eliquis 5 Yes Chhaya one Comm on mg mg [facility] Lisinopril Lisinopril Yes Chhaya 1 tablet Common [facility] Pantoprazol Pantoprazol Yes Chhaya 1 tablet Common e Sodium e Sodium [facility] Amlodipine Amlodipine Yes Chhaya 1 tablet Common Besylate Besylate [facility] Hydrocodone Hydrocodone Yes Chhaya 1 tablet Common -Acetaminop -Acetaminop Abiel as needed Spirit hen tosin [facility] Vitamin B12 Vitamin B12 No Vitamin B12 Vitamin D Vitamin D No Vitamin D Lasix Lasix No Lasix Iron Iron No Iron Amiodarone Amiodarone No Amiodarone HCl HCl HCl amLODIPine amLODIPine No 1{table QD amLODIPine Besylate 5 Besylate 5 t} Besylate 5 MG MG MG Lisinopril Lisinopril No 1{table QD Lisinopril 10 MG 10 MG t} 10 MG Pantoprazol Pantoprazol No 1{table QD Pantoprazo e Sodium 40 e Sodium 40 t} le Sodium MG MG 40 MG Metoprolol Metoprolol No 1{table BID Metoprolol Tartrate 25 Tartrate 25 t_with_ Tartrate MG MG food} 25 MG Eliquis 5 Eliquis 5 No Eliquis 5 mg 5 mg mg 5 mg mg 5 mg Magnesium Magnesium No Magnesium 400 MG 400 MG 400 MG Potassium Potassium No Potassium Chloride Chloride Chloride Tamsulosin Tamsulosin No 1{capsu QD Tamsulosin HCl 0.4 MG HCl 0.4 MG le} HCl 0.4 MG HYDROcodone HYDROcodone No 1{table QID HYDROcodon -Acetaminop -Acetaminop t_as_ne e-Acetamin hen 10-325 hen 10-325 eded} ophen MG MG 10-325 MG Meloxicam Meloxicam No 1{table QD Meloxicam 15 MG 15 MG t} 15 MG tramadol tramadol No tramadol Aspirin Aspirin No Aspirin Vitamin B12 Vitamin B12 No Vitamin B12 Iron Iron No Iron Magnesium Magnesium No Magnesium 400 MG 400 MG 400 MG Lasix Lasix No Lasix Vitamin D Vitamin D No Vitamin D Amiodarone Amiodarone No Amiodarone HCl HCl HCl Pantoprazol Pantoprazol No 1{table QD Pantoprazo e Sodium 40 e Sodium 40 t} le Sodium MG MG 40 MG Lisinopril Lisinopril No 1{table QD Lisinopril 10 MG 10 MG t} 10 MG Eliquis 5 Eliquis 5 No Eliquis 5 mg 5 mg mg 5 mg mg 5 mg HYDROcodone HYDROcodone No 1{table QID HYDROcodon -Acetaminop -Acetaminop t_as_ne e-Acetamin hen 10-325 hen 10-325 eded} ophen MG MG 10-325 MG Aspirin Aspirin No Aspirin amLODIPine amLODIPine No 1{table QD amLODIPine Besylate 5 Besylate 5 t} Besylate 5 MG MG MG Potassium Potassium No Potassium Chloride Chloride Chloride tramadol tramadol No tramadol Meloxicam Meloxicam No 1{table QD Meloxicam 15 MG 15 MG t} 15 MG Tamsulosin Tamsulosin No 1{capsu QD Tamsulosin HCl 0.4 MG HCl 0.4 MG le} HCl 0.4 MG Metoprolol Metoprolol No 1{table BID Metoprolol Tartrate 25 Tartrate 25 t_with_ Tartrate MG MG food} 25 MG Immunizations Ordered Filled Immunization Date Status Comments [facility] e Immunization Name Name Influenza Virus 2021-02-17 Completed Universit y of Vaccine 00:00:00 [facility] SARS-COV-2 COVID-19 2021-02-17 Completed Unive rsity of PFIZER ANCELMO-SUCROSE 00:00:00 [place] Medical VACCINE (NIELSEN TOP) Branch Influenza Virus 2021-02-17 Completed Universit y of Vaccine 00:00:00 [facility] SARS-COV-2 COVID-19 2021-02-17 Completed Unive rsity of PFIZER ANCELMO-SUCROSE 00:00:00 [place] Medical VACCINE (NIELSEN TOP) [place] Bupivicaine [place] Bupivicaine [place] 2020-09-17 Completed [facility] - 14:36:00 [facility] Bupivicaine [place] Bupivicaine [place] 2020-09-17 Completed [facility] - 14:36:00 [facility] Keshav Parr 2020-09-17 Completed [facility] - (Triamcinolone) (Triamcinolone) 14:36:00 [facility] Bupivicaine [place] Bupivicaine [place] 2020-09-17 Completed [facility] - 14:36:00 [facility] Bupivicaine [place] Bupivicaine [place] 2020-09-17 Completed [facility] - 14:36:00 [facility] Keshav Parr 2020-09-17 Completed [facility] - (Triamcinolone) (Triamcinolone) 14:36:00 [facility] Keshav Parr 2020-09-17 Completed [facility] - (Triamcinolone) (Triamcinolone) 14:35:00 [facility] Kenalog Kenalog 2020-09-17 Completed [facility] - (Triamcinolone) (Triamcinolone) 14:35:00 [facility] SARS-COV-2 COVID-19 2020-06-25 Completed Unive rsity of VINCE/J&J VACCINE 00:00:00 [facility] SARS-COV-2 COVID-19 2020-06-25 Completed Unive rsity of VINCE/J&J VACCINE 00:00:00 [facility] Vital Signs Vital Name Observation Time Observation Value Comments Source Systolic blood 2021-05-28 14:58:00 147 mm[Hg] Univer sity of pressure [facility] Diastolic blood 2021-05-28 14:58:00 84 mm[Hg] Unive rsity of pressure [facility] Heart rate 2021-05-28 14:58:00 59 /min General acute hospital Respiratory rate 2021-05-28 14:56:00 22 /min [facility] 2021-05-28 14:56:00 182.9 cm [facility] acute hospital Body weight 2021-05-28 14:56:00 142.656 kg General acute hospital BMI 2021-05-28 14:56:00 42.65 kg/m2 General acute hospital Oxygen saturation in 2021-05-28 14:56:00 94 /min [facility] Arterial blood by [facility] Pulse oximetry Branch height 2020-10-29 15:30:00 72 [in_i] Common S pirit - [facility] weight 2020-10-29 15:30:00 322.3 [lb_av] [facility] - [facility] bmi 2020-10-29 15:30:00 43.71 kg/m2 Common S pirit - [facility] blood pressure 2020-10-29 15:30:00 134 mm[Hg] [facility] - systolic [facility] blood pressure 2020-10-29 15:30:00 79 mm[Hg] [facility] - diastolic [facility] height 2020-09-17 14:00:00 72 [in_i] [facility] weight 2020-09-17 14:00:00 321.6 [lb_av] [facility] - [facility] bmi 2020-09-17 14:00:00 43.61 kg/m2 Common S pirit - [facility] blood pressure 2020-09-17 14:00:00 153 mm[Hg] [facility] - systolic [facility] blood pressure 2020-09-17 14:00:00 80 mm[Hg] [facility] - diastolic [facility] Procedures This patient has no known procedures. Encounters Start End Encounter Admission Attending Care Care Encounter Source Date/Time Date/Time Type Type Clinicians Facility Department ID 2021-04-14 Outpatient Clayton, [facility]MLC [facility] [id number] Common 14:04:58 Freddie [id number] [facility] 2021-04-14 Outpatient Clayton, STLMLC [facility] [id number] Common 13:21:36 Freddie [id number] [facility] 2021-04-14 Outpatient Clayton, STLMLC [facility] [id number] Common 13:21:02 Freddie [id number] [facility] 2021-04-14 Outpatient Clayton, STLMLC [facility] [id number] Common 11:04:40 Freddie [id number] [facility] 2019-01-10 Outpatient MHSE CAR 7501 MH 08:23:13 [facility] 2021-05-28 2021-05-[address] [facility] [id number] [facility] 08:30:00 09:00:00 Visit Susanna ASHLEY [id number] i ty [facility] [id number] [facility] PROFESSIO [id number] Ak dical [address] 2021-05-28 2021-05-28 Outpatient R SUSANNA DENT [facility] [id number] Univers 08:30:00 08:30:[address] i ty 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 [id number] [facility] 14:00:00 15:30:00 Visit Maurice Crane 350.1.13. 10 ity of [place]2.[place] [id number] [facility] 083 Branch 2021-04-22 2021-04-22 Outpatient R ROYCE [facility] [id number] Univers 14:00:00 14:00:00 MAURICE ity of [facility] 2021-04-22 2021-04-22 Orders ZINA Dent [id number] Univers 00:00:00 00:00:00 Only Susanna LEE [id number] i ty of [facility] 4.2.7.2.686 [place] [id number] [facility] 084 Branch 2021-04-20 2021-04-20 Laboratory Only, Adc Test [facility] 1.2.840. [id number] Univers 16:30:00 16:45:00 Only Matthias Guthrie 350.1.13.10 ity of [place] 4.2.7.2.686 [place] [id number] [facility] 353 Branch 2021-04-20 2021-04-20 Outpatient R JERRI [facility] [id number] Univers 16:30:00 16:30:00 MATTHIAS katey of [facility] 2021-03-26 2021-03-26 Outpatient R SUSANNA DENT [facility] [id number] Univers 08:30:00 09:26:33 SUSANNA DENT i ty of [facility] 2021-03-26 2021-03-[address] [facility] 1.2.840.114 [id number] Univers 08:30:00 09:26:33 Visit Susanna ASHLEY 350.1.13.10 i ty of [place] 4.2.7.2.[place] [id number] Ak dical [facility] 085 Branch [facility] 2021-03-26 2021-03-26 Orders Doctor FERREIRA 1.2.840.114 [id number] Univers 00:00:00 00:00:00 Only Unassigned, EAM 350.1.13.10 ity of [place] [facility] 4.2.7.2.686 [place] as [id number] [address] 2020-12-23 2020-12-23 Orders Doctor JHON 1.2.840.114 [id number] Univers 00:00:00 00:00:00 Only Unassigned, EMA [id number] ity of [place] [facility] 4.2.7.2.686 [place] as [id number] [address] 2020-10-29 2020-10-29 OFFICE STLMLC STLMLC [id number] Co mmon 00:00:00 00:00:00 VISIT Spirit ESTAB PT - CHI LEVEL 4 [facility] 2020-09-17 2020-09-17 CONSULT - STLMLC STLMLC [id number] Common 00:00:00 00:00:00 OFFICE, L4 Spi rit - CHI [facility] 2020-04-03 2020-04-[address] [facility] 1.2.840.114 [id number] 07:54:54 23:59:00 Encounter [place] 350.1.13.10 [place] 4.2.7.2.686 [place] [id number] 2020-04-03 2020-04-03 Outpatient R RADIOLOGY [facility] [id number] Univers 00:00:00 [facility]:00[facility]00 [facility] 2019-08-09 2019-08-09 [facility] 1.2.840.114 [id number] 00:00:00 00:00:00 Mary [place] 350.1.13.10 [place] 4.2.7.2.686 Professio [id number] [address] 2019-08-04 2019-08-04 Refill [facility] 1.2.840.114 [id number] 00:00:00 00:00:00 Mary [place] 350.1.13.10 [place] 4.2.7.2.686 Surgical [id number] [place] [address] 2019-07-26 2019-07-26 [facility] [id number] Univers 08:15:00 08:15:00 [facility] 2019-06-28 2019-06-28 [facility] [id number] Univers 13:00:00 13:00:00 [facility] 2019-06-28 2019-06-28 Office [facility] 1.2.840.114 [id number] 10:18:35 11:44:02 Visit Mary Ashley 350.1.13.10 [place] 4.2.7.2.686 Ros[place] [id number] [address] 2019-06-28 2019-06-28 Orders Doctor JHON 1.2.840.114 [id number] 00:00:00 00:00:00 Only Unassigned, EMA 350.1.13.10 [place] [facility] 4.2.7.2.686 [id number] 2019-06-20 2019-06-20 [facility] [id number] Univers 07:55:00 14:39:00 [facility] 2019-06-14 2019-06-14 [facility] [id number] Univers 10:00:00 10:00:00 [facility] 2019-06-13 2019-06-13 [facility] [id number] Univers 15:30:00 15:30:00 [facility] 2019-05-29 2019-05-29 Emergency X , [facility] ERT [id number] Univers 07:09:06 09:56:00 KOMAL [facility] 2019-05-23 2019-05-23 [facility] [id number] Univers 06:33:05 10:25:00 [facility] 2019-05-21 2019-05-21 Outpatient R [facility] [id number] Univers 16:00:00 16:00:00 [facility] 2019-05-16 2019-05-16 [facility] [id number] Univers 15:15:00 15:15:00 [facility] 2019-04-19 2019-04-19 [id number] Common 11:15:00 11:15:00 t Specialty/U Sp kike Specialty rology - CHI /Urology Clinic [facility] Results This patient has no known results.
--- NOTE | 2022-09-07 12:53 | EDPHYS ---
Physician Documentation [facility] Name: Keo Richards Age: 61 yrs Sex: Male : 1960 Arrival Date: 09/07/2022 Time: 11:50 Bed 12 Private MD: ED Physician Tez Webster HPI: 09/07 12:45 This 61 yrs old Male presents to ER via Ambulatory with complaints of Redness keli of Eye. 12:45 The patient is experiencing pain. Onset: The symptoms/episode began/occurred yesterday. keli Duration: the symptoms are continuous. Aggravated by nothing. Alleviated by nothing. Associated signs and symptoms: Pertinent positives:. Severity of symptoms: At their worst the symptoms were mild in the emergency department the symptoms are unchanged. The patient has not experienced similar symptoms in the past. Historical: - Allergies: 12:10 No Known Allergies; ph - Home Meds: 12:10 amiodarone 200 mg Oral tab 1 tab once daily [Active]; aspirin 81 mg Oral chew 1 tab ph once daily [Active]; Furosemide Oral [Active]; - Family history:: not pertinent. ROS: 12:45 Constitutional: Negative for fever, chills, and weight loss, ENT: Negative for injury, keli pain, and discharge, Neck: Negative for injury, pain, and swelling, Cardiovascular: Negative for chest pain, palpitations, and edema, Respiratory: Negative for shortness of breath, cough, wheezing, and pleuritic chest pain, Abdomen/GI: Negative for abdominal pain, nausea, vomiting, diarrhea, and constipation, Back: Negative for injury and pain, : Negative for injury, bleeding, discharge, and swelling, MS/Extremity: Negative for injury and deformity, Skin: Negative for injury, rash, and discoloration, Neuro: Negative for headache, weakness, numbness, tingling, and seizure, Psych: Negative for depression, anxiety, suicide ideation, homicidal ideation, and hallucinations, Allergy/Immunology: Negative for hives, rash, and allergies, Endocrine: Negative for neck swelling, polydipsia, polyuria, polyphagia, and marked weight changes, Hematologic/Lymphatic: Negative for swollen nodes, abnormal bleeding, and unusual bruising. 12:45 Eyes: Positive for injury or acute deformity, of the outer aspect of conjuctiva of right eye and inner aspect of conjuctiva of right eye. Exam: 12:45 Constitutional: This is a well developed, well nourished patient who is awake, alert, keli and in no acute distress. Head/Face: Normocephalic, atraumatic. ENT: Nares patent. No nasal discharge, no septal abnormalities noted. Tympanic membranes are normal and external auditory canals are clear. Oropharynx with no redness, swelling, or masses, exudates, or evidence of obstruction, uvula midline. Mucous membranes moist. Neck: Trachea midline, no thyromegaly or masses palpated, and no cervical lymphadenopathy. Supple, full range of motion without nuchal rigidity, or vertebral point tenderness. No Meningismus. Chest/axilla: Normal chest wall appearance and motion. Nontender with no deformity. No lesions are appreciated. Cardiovascular: Regular rate and rhythm with a normal S1 and S2. No gallops, murmurs, or rubs. Normal PMI, no JVD. No pulse deficits. Abdomen/GI: Soft, non-tender, with normal bowel sounds. No distension or tympany. No guarding or rebound. No evidence of tenderness throughout. Back: No spinal tenderness. No costovertebral tenderness. Full range of motion. Skin: Warm, dry with normal turgor. Normal color with no rashes, no lesions, and no evidence of cellulitis. MS/ Extremity: Pulses equal, no cyanosis. Neurovascular intact. Full, normal range of motion. Neuro: Awake and alert, GCS 15, oriented to person, place, time, and situation. Cranial nerves II-XII grossly intact. Motor strength 5/5 in all extremities. Sensory grossly intact. Cerebellar exam normal. Normal gait. Psych: Awake, alert, with orientation to person, place and time. Behavior, mood, and affect are within normal limits. 12:45 Eyes: Periorbital structures: appear normal, no acute changes, no abrasion, no cellulitis, no contusion, no ecchymosis, no erythema, no laceration, Pupils: no acute changes, equal, round, and reactive to light and accomodation, Extraocular movements: intact throughout, Conjunctiva: subconjunctival hemorrhage(s), seen in the right eye, Corneas: are normal, no evidence of abrasion, no foreign body, Sclera: diogenes, Lids and lashes: appear normal, no acute changes, no evidence of trauma, Visual godwin: are intact, Nystagmus: is not appreciated. 12:45 Respiratory: Exam negative for Vital Signs: 12:09 BP 134 / 78; Pulse 65; Resp 18; Temp 97.8; Pulse Ox 100% on R/A; Weight 127.01 kg; ph Height 6 ft. 0 in. ; 12:09 Body Mass Index 37.97 (127.01 kg, 182.88 cm) ph MDM: 11:56 Patient medically screened. keli 12:50 Differential diagnosis: Corneal abrasion of Corneal ulcer of Foreign body in Acute keli iritis of Data reviewed: vital signs, nurses notes. Consideration of Admission/Observation Escalation of care including admission/observation considered. 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 Test considered but Not performed: Labs: no labs. Care significantly affected by the following chronic conditions: Hypertension, afib. 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 keli - Conjunctival hemorrhage, right eye keli - Unspecified atrial fibrillation keli Followup: keli - With: Private Physician - When: 2 - 3 days - Reason: Recheck today's complaints, Continuance of care, Re-evaluation by your physician Followup: keli - With: Damian Mullins MD - When: 1 - 2 days - Reason: Recheck today's complaints, Re-evaluation by your physician Discharge Instructions: - Discharge Summary Sheet keli - Atrial Fibrillation keli - Subconjunctival Hemorrhage keli - Atrial Fibrillation, [id number] keli Forms: - Work release form keli - Medication Reconciliation Form keli - Thank You Letter keli - Antibiotic Education keli - Prescription Opioid Use keli Signatures: Tez Webster MD MD cha Hall, Patricia, RN RN ph
--- NOTE | 2022-09-07 12:53 | ER ---
Nurse's Notes [facility] Name: Keo Richards Age: 61 yrs Sex: Male : 1960 Arrival Date: 09/07/2022 Time: 11:50 Bed 12 Private MD: Diagnosis: USP (current) use of anticoagulants;Conjunctival hemorrhage, right eye;Unspecified atrial fibrillation Presentation: 09/07 12:09 Chief complaint: Patient states: Redness to R eye since Monday, no drainage or fever, ph no change in vision, reports pressure behind eye. Coronavirus screen: Vaccine status: Patient reports receiving the 2nd dose of the covid vaccine. Ebola Screen: No symptoms or risks identified at this time. Initial Sepsis Screen: Does the patient meet any 2 criteria? No. Patient's initial sepsis screen is negative. Does the patient have a suspected source of infection? No. Patient's initial sepsis screen is negative. Risk Assessment: Do you want to hurt yourself or someone else? Patient reports no desire to harm self or others. Onset of symptoms was September 07, 2022. 12:09 Method Of Arrival: Ambulatory ph 12:09 Acuity: KATHRYN 4 ph Historical: - Allergies: 12:10 No Known Allergies; ph - Home Meds: 12:10 amiodarone 200 mg Oral tab 1 tab once daily [Active]; aspirin 81 mg Oral chew 1 tab ph once daily [Active]; Furosemide Oral [Active]; - Family history:: not pertinent. Screenin:02 [facility] ED Fall Risk Assessment (Adult) History of falling in the last 3 months, ss including since admission No falls in past 3 months (0 pts). Abuse screen: Denies threats or abuse. Denies injuries from another. Nutritional screening: No deficits noted. Tuberculosis screening: Never had TB. Assessment: 13:02 General: Appears in no apparent distress. comfortable, Behavior is calm, cooperative. ss Neuro: Level of Consciousness is awake, alert, obeys commands, Oriented to person, place, time, situation. Respiratory: Airway is patent Respiratory effort is even, unlabored. EENT: reddened sclera to R eye. Vital Signs: 12:09 BP 134 / 78; Pulse 65; Resp 18; Temp 97.8; Pulse Ox 100% on R/A; Weight 127.01 kg; ph Height 6 ft. 0 in. ; 12:09 Body Mass Index 37.97 (127.01 kg, 182.88 cm) ED Course: 11:51 Patient arrived in ED. rg4 11:56 Tez Webster MD is Attending Physician. [facility] 12:10 Triage completed. ph 12:11 Arm band placed on Patient placed in an exam room. ph 12:51 Damian Mullins MD is Referral Physician. [facility] 13:02 Patient has correct armband on for positive identification. ss 13:02 No provider procedures requiring assistance completed. Patient did not have IV access ss during this emergency room visit. Administered Medications: No medications were administered Medication: 13:02 VIS not applicable for this client. ss Outcome: 12:52 Discharge ordered by . [facility] 13:02 Discharged to home ambulatory. 13:02 Condition: good 13:02 Discharge instructions given to patient, Instructed on discharge instructions, follow up and referral plans. Demonstrated understanding of instructions, follow-up care. 13:03 Patient left the ED. ss Signatures: Tez Webster MD MD cha Blanchard, Shelby, RN RN Coleen Ring RN RN Eden Harry rg4
[2022-09-07 13:37] VITALS: BP 134/78; TEMP 97.8; O2SAT 100
== END 2022-09-07 13:03 | disposition home or self-care (01) ==
LOC: ER 11:50
DX: H11.31 Conjunctival hemorrhage, right eye (principal); I48.91 Unspecified atrial fibrillation; Z79.01 Long term (current) use of anticoagulants; Z79.82 Long term (current) use of aspirin